=== PATIENT | female | born 1945 | race Caucasian/White ===

== ENCOUNTER 2018-05-24 08:37 | Emergency (ER) | payer OTHER, MEDICARE ==
[2018-05-24] MEDS ORDERED: ACETAMINOPHEN 325 MG TABLET ONE (09:41)
[2018-05-24 09:58] LABS: Absolute Lymphocytes (CBC) 1.4 K/uL (0.7-4.9); Absolute Monocytes 1.3 K/uL (0.1-1.3); Absolute Neutrophil 10.8 K/uL (1.8-8.0); Basophils % 0.5 % (0-1.3); Eosinophils % 1.1 % (0-4.4); Hematocrit 39.6 % (36.0-45.0); Lymphocytes % 10.5 % (15.3-44.8); MPV 9.8 fL (7.6-11.3); Monocytes % 9.4 % (3.3-12.3); RBC Red Blood Cell Count 4.64 M/uL (3.86-4.86)
[2018-05-24 10:59] LABS: Urine Blood 1+ (NEG); Urine Glucose NEGATIVE (NEG); Urine Protein NEGATIVE (NEG); Urine Specific Gravity 1.005 (1.005-1.030)
--- NOTE | 2018-05-24 11:45 | RAD REPORT ---
EXAM DESCRIPTION: CT - Head Brain Wo Cont - 05/24/2018 11:29 am CLINICAL HISTORY: Headache, tinnitus COMPARISON: None. TECHNIQUE: Axial 5 mm thick images of the head were obtained without IV contrast. All CT scans are performed using dose optimization technique as appropriate and may include automated exposure control or mA/KV adjustment according to patient size. FINDINGS: No intracranial hemorrhage, mass, edema or shift of mid-line structures. No acute infarcti on changes seen. No abnormal extra-axial fluid collections. Ventricles are normal. Mastoid air cells and visualized portions of the paranasal sinuses are clear. No acute bony findings. IMPRESSION: Negative non-contrast CT head examination.
[2018-05-24] MEDS ORDERED: KETOROLAC 30 MG/ML INJ ONE (11:53)
[2018-05-24] MEDS ORDERED: CIPROFLOXACIN HCL 500 MG TAB ONE (12:09)
--- NOTE | 2018-05-24 12:15 | ER ---
Nurse's Notes [facility] Name: Sravanthi Mendoza Age: 73 yrs Sex: Female : 1945 Arrival Date: 05/24/2018 Time: 08:41 Bed 17 Private MD: Irwin Tyson V Diagnosis: UTI, Headache Presentation: 05/24 08:51 Presenting complaint: Patient states: Chills and intermittent suprapubic pain that ss began last night. Headache and ear ringing that began this morning. Transition of care: patient was not received from another setting of care. Onset of symptoms was May 23, 2018. Risk Assessment: Do you want to hurt yourself or someone else? Patient reports no desire to harm self or others. Initial Sepsis Screen: Does the patient meet any 2 criteria? HR > 90 bpm. Does the patient have a suspected source of infection? No. Patient's initial sepsis screen is negative. Care prior to arrival: None. 08:51 Method Of Arrival: Ambulatory ss 08:51 Acuity: AIDEE 3 ss Triage Assessment: 11:24 General: Appears in no apparent distress. General: Behavior is calm, cooperative. Pain: ls4 Pain began 2-3 days ago. Is continuous, Also complains of no other associated symptoms. Neuro: No deficits noted. Cardiovascular: No deficits noted. Respiratory: No deficits noted. GI: No deficits noted. : No deficits noted. Derm: No deficits noted. Musculoskeletal: No deficits noted. 11:52 Headache History: Denies prior headaches. Pain: Pain currently is 5 out of 10 on a pain ls4 scale. Historical: - Allergies: 08:54 PENICILLINS; ss 08:54 Sulfa (Sulfonamide Antibiotics); ss - PMHx: 08:54 Hypertension; GERD; High Cholesterol; Vit D deficiency; ss - Immunization history:: Adult Immunizations unknown. - Social history:: Smoking status: Patient/guardian denies using tobacco. - Ebola Screening: : Patient denies exposure to infectious person Patient denies travel to an Ebola-affected area in the 21 days before illness onset. Screenin:15 Abuse screen: Denies threats or abuse. Denies injuries from another. Nutritional hb screening: No deficits noted. Tuberculosis screening: No symptoms or risk factors identified. Fall Risk None identified. Assessment: 09:15 General: Appears in no apparent distress. Behavior is calm, cooperative. Pain: Pain hb currently is 6 out of 10 on a pain scale. Neuro: Level of Consciousness is awake, alert, obeys commands, Oriented to person, place, time, situation, Reports headache. Cardiovascular: Heart tones S1 S2 present Capillary refill < 3 seconds Patient's skin is warm and dry. Respiratory: Airway is patent Respiratory effort is even, unlabored, Respiratory pattern is regular, symmetrical, Breath sounds are clear bilaterally. GI: No signs and/or symptoms were reported involving the gastrointestinal system. : Reports pain in suprapubic area. EENT: No signs and/or symptoms were reported regarding the EENT system. Derm: No signs and/or symptoms reported regarding the dermatologic system. Skin is intact, is healthy with good turgor. Musculoskeletal: No signs and/or symptoms reported regarding the musculoskeletal system. 11:22 Reassessment: Patient and/or family updated on plan of care and expected duration. Pain ls4 level reassessed. Patient is alert, oriented x 3, equal unlabored respirations, skin warm/dry/pink. Vital Signs: 08:54 BP 151 / 69; Pulse 98; Resp 16; Temp 98.6(TE); Pulse Ox 97% on R/A; Weight 87.09 kg; ss Height 5 ft. 7 in. (170.18 cm); Pain 6/10; 11:22 BP 136 / 80; Pulse 88; Resp 16; Temp 98.4; Pulse Ox 99% on R/A; Pain 5/10; ls4 12:19 BP 138 / 67; Pulse 80; Resp 16; Temp 98.4(O); Pulse Ox 99% on R/A; Pain 3/10; ls4 08:54 Body Mass Index 30.07 (87.09 kg, 170.18 cm) ED Course: 08:41 Patient arrived in ED. rg4 08:42 Irwin Tyson MD is Private Physician. rg4 08:53 Triage completed. ss 08:54 Arm band placed on right wrist. ss 08:56 Martinez Pendleton MD is Attending Physician. kdr 09:15 Patient has correct armband on for positive identification. Bed in low position. Call hb light in reach. Side rails up X 1. 09:29 Vika Conde, ANGELICA is Primary Nurse. hb 09:35 Initial lab(s) drawn, by me, sent to lab. First set of blood cultures drawn. Inserted em1 saline lock: 20 gauge in right antecubital area, using aseptic technique. Blood collected. 09:55 Second set of blood cultures drawn by me. em1 11:24 No provider procedures requiring assistance completed. ls4 11:30 CT Head Brain wo Cont In Process Unspecified. EDMS 12:14 Irwin Tyson MD is Referral Physician. kdr 12:20 IV discontinued, intact, bleeding controlled, No redness/swelling at site. Pressure ls4 dressing applied. Administered Medications: 09:46 Drug: Tylenol 650 mg Route: PO; hb 10:37 Follow up: Response: No adverse reaction ls4 11:50 Drug: TORadol 15 mg Route: IVP; Site: right antecubital; ls4 11:57 Follow up: Response: No adverse reaction; Pain is decreased ls4 12:02 Drug: Cipro 500 mg Route: PO; ls4 12:19 Follow up: Response: No adverse reaction ls4 Outcome: 12:15 Discharge ordered by . kdr 12:52 Discharged to home ambulatory, with family. ls4 12:52 Condition: good 12:52 Discharge instructions given to patient, family, Instructed on discharge instructions, follow up and referral plans. medication usage, safety practices, Demonstrated understanding of instructions, follow-up care, medications, Prescriptions given X 1. 12:53 Patient left the ED. ls4 Addendum: 05/27/2018 07:44 Addendum: Culture Results: Positive urine culture. No further action required. Bacteria a a5 sensitive to prescribed antibiotic. Signatures: Dispatcher [employer] EDCA Martinez Pendleton MD MD kdr Martinez, Eric em1 Betty Estevez, RN RN aa5 Marce Richmond RN RN ss Baxter, Heather, RN RN hb Garcia, Rubi 4 Hafsa Ferrara RN RN ls4
--- NOTE | 2018-05-24 12:15 | EDPHYS ---
Physician Documentation [facility] Name: Sravanthi Mendoza Age: 73 yrs Sex: Female : 1945 Arrival Date: 05/24/2018 Time: 08:41 Bed 17 Private MD: Irwin Tyson V ED Physician Martinez Pendleton HPI: 05/24 09:45 This 73 yrs old Female presents to ER via Ambulatory with complaints of kdr Headache and low abdominal pain. 10:10 The patient had low abdominal pain and discomfort since yesterday. Last night when when kdr she went to bed, she began to have a RUIZ that was global but worse posteriorly. She has no s/s of meningitis. It is not the worse RUIZ of her life. Onset: The symptoms/episode began/occurred yesterday. Severity of symptoms: At their worst the symptoms were mild in the emergency department the symptoms are unchanged. The patient has not experienced similar symptoms in the past. The patient has not recently seen a physician. The patient's is deteriorating w/ CA and she has been under a lot of stress. She did not sleep well last night and she awoke with chills but no documented fever.. Historical: - Allergies: 08:54 PENICILLINS; ss 08:54 Sulfa (Sulfonamide Antibiotics); ss - PMHx: 08:54 Hypertension; GERD; High Cholesterol; Vit D deficiency; ss - Immunization history:: Adult Immunizations unknown. - Social history:: Smoking status: Patient/guardian denies using tobacco. - Ebola Screening: : Patient denies exposure to infectious person Patient denies travel to an Ebola-affected area in the 21 days before illness onset. ROS: 10:10 Constitutional: Negative for and weight loss - she did have chills Eyes: Negative for kdr injury, pain, redness, and discharge, Neck: Negative for injury, pain, and swelling, Cardiovascular: Negative for chest pain, palpitations, and edema, Respiratory: Negative for shortness of breath, cough, wheezing, and pleuritic chest pain, Back: Negative for injury and pain, : Negative for injury, bleeding, discharge, and swelling, MS/Extremity: Negative for injury and deformity, Skin: Negative for injury, rash, and discoloration, Psych: Negative for depression, anxiety, suicide ideation, homicidal ideation, and hallucinations, Allergy/Immunology: Negative for hives, rash, and allergies, Endocrine: Negative for neck swelling, polydipsia, polyuria, polyphagia, and marked weight changes, Hematologic/Lymphatic: Negative for swollen nodes, abnormal bleeding, and unusual bruising. 10:10 Abdomen/GI: Positive for abdominal pain, Negative for nausea, vomiting, and diarrhea, constipation, abdominal cramps, abdominal distension, dysphagia, black/tarry stool, rectal pain, rectal bleeding, bowel incontinence. 10:10 Neuro: Positive for headache, Negative for dizziness, gait disturbance, hearing loss, loss of consciousness, numbness, seizure activity, speech changes, syncope, near syncope, tingling, tinnitus, tremor, visual changes, weakness. Exam: 10:10 Constitutional: This is a well developed, well nourished patient who is awake, alert, kdr and in no acute distress. Head/Face: Normocephalic, atraumatic. Eyes: Pupils equal round and reactive to light, extra-ocular motions intact. Lids and lashes normal. Conjunctiva and sclera are non-icteric and not injected. Cornea within normal limits. Periorbital areas with no swelling, redness, or edema. Neck: Trachea midline, no thyromegaly or masses palpated, and no cervical lymphadenopathy. Supple, full range of motion without nuchal rigidity, or vertebral point tenderness. No Meningismus. Chest/axilla: Normal chest wall appearance and motion. Nontender with no deformity. No lesions are appreciated. Cardiovascular: Regular rate and rhythm with a normal S1 and S2. No gallops, murmurs, or rubs. Normal PMI, no JVD. No pulse deficits. Respiratory: Lungs have equal breath sounds bilaterally, clear to auscultation and percussion. No rales, rhonchi or wheezes noted. No increased work of breathing, no retractions or nasal flaring. Abdomen/GI: Soft, mild tenderness RLQ > LLQ, with normal bowel sounds. No distension or tympany. No guarding or rebound. Back: No spinal tenderness. No costovertebral tenderness. Full range of motion. Skin: Warm, dry with normal turgor. Normal color with no rashes, no lesions, and no evidence of cellulitis. Vital Signs: 08:54 BP 151 / 69; Pulse 98; Resp 16; Temp 98.6(TE); Pulse Ox 97% on R/A; Weight 87.09 kg; ss Height 5 ft. 7 in. (170.18 cm); Pain 6/10; 11:22 BP 136 / 80; Pulse 88; Resp 16; Temp 98.4; Pulse Ox 99% on R/A; Pain 5/10; ls4 12:19 BP 138 / 67; Pulse 80; Resp 16; Temp 98.4(O); Pulse Ox 99% on R/A; Pain 3/10; ls4 08:54 Body Mass Index 30.07 (87.09 kg, 170.18 cm) ss MDM: 10:10 Data reviewed: vital signs, nurses notes, lab test result(s), EKG, radiologic studies. kdr 12:15 Patient medically screened. kdr 05/24 09:19 Order name: CBC with Diff kdr 05/24 09:19 Order name: Chem 7 kdr 05/24 09:19 Order name: Urine Culture [facility] 05/24 09:19 Order name: Blood Culture Adult (2) kdr 05/24 09:20 Order name: CBC with Automated Diff; Complete Time: 10:07 EDMS 05/24 09:20 Order name: Basic Metabolic Panel; Complete Time: 10:59 EDAK 05/24 09:19 Order name: Urine Dipstick-Ancillary (obtain specimen); Complete Time: 09:30 kdr 05/24 09:54 Order name: Urine Dipstick--Ancillary (enter results); Complete Time: 11:28 eb 05/24 10:59 Order name: CT Head Brain wo Cont; Complete Time: 12:10 kdr Administered Medications: 09:46 Drug: Tylenol 650 mg Route: PO; hb 10:37 Follow up: Response: No adverse reaction ls4 11:50 Drug: TORadol 15 mg Route: IVP; Site: right antecubital; ls4 11:57 Follow up: Response: No adverse reaction; Pain is decreased ls4 12:02 Drug: Cipro 500 mg Route: PO; ls4 12:19 Follow up: Response: No adverse reaction ls4 Disposition: 05/24/18 12:15 Discharged to Home. Impression: UTI, Headache. - Condition is Fair. - Discharge Instructions: Urinary Tract Infection, Adult, [id number], General Headache Without Cause, Ikae-fk-Fizz. - Prescriptions for Cipro 500 mg Oral Tablet - take 1 tablet by ORAL route every 12 hours for 7 days; 14 tablet. - Medication Reconciliation Form, Thank You Letter, Antibiotic Education form. - Follow up: Irwin Tyson MD; When: 2 - 3 days; Reason: If symptoms return, Further diagnostic work-up, Recheck today's complaints, Continuance of care, Re-evaluation by your physician. - Problem is new. - Symptoms have improved. Signatures: Dispatcher [employer] EDAK Martinez Pendleton MD MD [facility] Marce Richmond RN RN Vika Conde RN RN Hafsa Ferrara RN RN ls4 Corrections: (The following items were deleted from the chart) 12:53 12:15 05/24/2018 12:15 Discharged to Home. Impression: UTI, Headache. Condition is ls4 Fair. Forms are Medication Reconciliation Form, Thank You Letter, Antibiotic Education, Prescription Opioid Use. Follow up: Irwin Tyson; When: 2 - 3 days; Reason: If symptoms return, Further diagnostic work-up, Recheck today's complaints, Continuance of care, Re-evaluation by your physician. Problem is new. Symptoms have improved. kdr
== END 2018-05-24 12:53 | disposition home or self-care (01) ==
LOC: ER 08:37
DX: N39.0 Urinary tract infection, site not specified (principal); R51 Headache; Z88.0 Allergy status to penicillin; Z88.2 Allergy status to sulfonamides; I10 Essential (primary) hypertension; E78.00 Pure hypercholesterolemia, unspecified; E55.9 Vitamin D deficiency, unspecified
CPT/HCPCS: 36415; 70450; 80048; 81003; 85025; 87040; 87077; 87086; 87088; 87186

== ENCOUNTER 2020-01-07 11:00 | Emergency (ER) | payer OTHER, MEDICARE ==
--- OUTSIDE RECORDS SUMMARY | 2020-01-07 11:02 | XMS REPORT | Continuity of Care Document ---
:1945 Author Organization [facility] t Address [address] [place] [address] Care Team Providers Name Role Phone Nasra Posadas Attending Clinician Doctor Unassigned, Name Attending Clinician Unavailable Problems This patient has no known problems. Allergies, Adverse Reactions, Alerts This patient has no known allergies or adverse reactions. Medications This patient has no known medications. Procedures This patient has no known procedures. Encounters Start End Encounter Admission Attending Care Care Encounter Source Date/Time Date/Time Type Type Clinicians Facility Department ID 2020-01-03 2020-01-03 Emergency Natasha Chawla [facility] [id number] 13:32:00 17:51:00 Nasra Plummer [id number] [place] [id number] [place] [id number] 2020-01-03 2020-01-03 Orders Doctor RACHEL [id number] 00:00:00 00:00:00 Only Unassigned, JUAN MANUEL [id number] [place] [facility] [id number] Results This patient has no known results.
--- OUTSIDE RECORDS SUMMARY | 2020-01-07 11:02 | XMS REPORT | Summary of Care ---
:1945 Author Organization [facility] - Health Address [address] [place] [address] Care Team Providers Name Role Phone Irwin Tyson Primary Care Provider Encounter Details Date Type Department Care Team Description 01/03/2020 Orders Only [facility] Doctor Unassigned, No [address] [facility] [place] [address] [address] [place] [address] Allergies Active Allergy Reactions Severity Noted Date Comments Penicillin Swelling 05/11/2019 Sulfa (Sulfonamide Antibiotics) Swelling 0 documented as of this encounter (statuses as of 01/03/2020) Medications No known medicationsdocumented as of this encounter (statuses as of 01/03/2020) Active Problems No known active problemsdocumented as of this encounter (statuses as of 01/03/2020) Social History Tobacco Use Types Packs/Day Years Used Date Never Assessed Sex Assigned at Date Recorded Not on file documented as of this encounter Last Filed Vital Signs Not on filedocumented in this encounter Plan of Treatment Health Maintenance Due Date Last Done Comments Depression Screening 1957 DTaP,Tdap,and Td Vaccines (1 - Tdap) 01/11/1963 Breast Cancer Screening (MAMMOGRAM) 1984 COLON CANCER SCREENING ANNUAL FIT/FOBT 01/11/1994 COLON CANCER SCREENING FIT DNA EVERY 3 YEARS 01/11/1994 COLON CANCER SCREENING SIGMOIDOSCOPY EVERY 5 YEARS 01/11/1994 COLONOSCOPY 01/11/1994 Colorectal Cancer Screening 01/11/1994 Zoster Recombinant Vaccine (SHINGRIX) (1 of 2) 01/11/1994 Medicare Wellness Visit 01/11/2009 Osteoporosis Screening 01/11/2009 PNEUMOCOCCAL VACCINES 65+ (1 of 1 - PPSV23) 01/11/2009 INFLUENZA VACCINE (#1) 2020 documented as of this encounter Procedures Procedure Name Priority Date/Time Associated Diagnosis Comme nts CONSENT/REFUSAL FOR Routine 01/03/2020 1:20 PM CDT DIAGNOSIS AND TREATMENT documented in this encounter Results Not on filedocumented in this encounter Insurance Payer Benefit Plan / Subscriber ID Effective Phone Address T e Group Dates MEDICARE MEDICARE PART [id number] 2009-Pre [phone] [address] [employer] sent [phone] FRANCIA RAMIREZ [id number] [facility] [id number] 2019-Pre [address] [facility] [place][note 2] sent [id number] Supplement MEDICARE [place] SUPPLEMENT FRANCIA BACA [id number] documented as of this encounter
--- OUTSIDE RECORDS SUMMARY | 2020-01-07 11:03 | XMS REPORT | Summary of Care ---
:1945 Author Organization [facility] - [facility] Address [address] [place] [address] Care Team Providers Name Role Phone Jah Irwin Primary Care Provider Reason for Referral Radiology Services (LOYDA) Status Reason Specialty Diagnoses / Referred By Referred To Procedures Contact Contact New Request Diagnostic Diagnoses Fatigue, unspecified type [place], K Radiology Procedures XR CHEST 1 VW COVID XR CHEST 1 RUDI Hammonds, PAC [address] [place] [phone] Reason for Visit Reason Comments Fever Cough Auth/Cert Status Reason Specialty Diagnoses / Referred By Referred To Procedures Contact Contact Emergency Medicine Diagnoses FEVER [facility] [address] [place] [address] Fax: Encounter Details Date Type Department Care Team Description 01/03/2020 Emergency ADC-Emergency [place], K Nasra, Viral illn ess (Primary Dx); Department PAC Fatigue, unspecified type [address] [place] [address] Dr [address] [place] [address] [place] [address] Allergies Active Allergy Reactions Severity Noted Date Comments Penicillin Swelling 05/11/2019 Sulfa (Sulfonamide Antibiotics) Swelling 0 documented as of this encounter (statuses as of 01/03/2020) Medications Medication Sig Dispensed Refills Start Date End Date Status naproxen (NAPROSYN) 500 Take 1 tablet by 30 tablet 0 0 Active mg tabletIndications: mouth 2 (two) Fatigue, unspecified times daily with type, Viral illness meals. documented as of this encounter (statuses as of 01/03/2020) Active Problems No known active problemsdocumented as of this encounter (statuses as of 01/03/2020) Social History Tobacco Use Types Packs/Day Years Used Date Never Assessed Sex Assigned at Date Recorded Not on file COVID-19 Exposure Response Date Recorded In the last month, have you been in contact with No / Unsure 01/03/2020 1:34 PM CDT someone who was confirmed or suspected to have Coronavirus / COVID-19? documented as of this encounter Last Filed Vital Signs Vital Sign Reading Time Taken Comments Blood Pressure 134/58 01/03/2020 5:00 PM CDT Pulse 59 01/03/2020 5:00 PM CDT Temperature 38 C (100.4 F) 01/03/2020 1:38 PM CDT Respiratory Rate 16 01/03/2020 5:00 PM CDT Oxygen Saturation 97% 01/03/2020 5:00 PM CDT Inhaled Oxygen Concentration - - Weight 88.5 kg (195 lb) 01/03/2020 1:38 PM CDT Height - - Body Mass Index - - documented in this encounter Discharge Instructions AttachmentsThe following attachments cannot be sent through Care Everywhere. Viral Syndrome (Adult) (Chinese)documented in this encounter ED Notes Ashely Main RN - 01/03/2020 1:35 PM CDTPatient reports productive cough, fever, chills, body aches, diarrhea x1 week. Was tested for COVID19 at Urgent Care 2 days ago, reports that she still hasn't gotten results yet. Also reports that she was being treated for UTI 2 days ago, taking antibiotics, cannot recall name of medication. documented in this encounter Miscellaneous Notes ED Nurse Note - Ashely Main, RN - 01/03/2020 5:42 PM CDTPt discharged with diagnosis of fatigue and viral illness. Printed and verbal instructions reviewed with and given to patient. Prescriptions given x1. Pt verbalized understanding of teaching and medications. Denies questions or concerns at this time. Pt ambulatory at discharge, appears in no apparent distress. D Nurse Note - Ashely Main RN - 01/03/2020 1:40 PM CDTPt also reports loss of taste. D Nurse Note - Ashely Main RN - 01/03/2020 1:36 PM CDTWalking test performed at this time. Pt O2 sat remained above 95% on RA. documented in this encounter Plan of Treatment Health [...] Name Priority Date/Time Associated Diagnosis Comme nts EKG-12 LEAD Routine 01/03/2020 4:06 PM CDT XR CHEST 1 VW COVID LOYDA 01/03/2020 3:05 Fatigue, unspecif ied Results for this PM CDT type procedure are i n the results section. CBC WITH DIFF STAT 01/03/2020 3:04 Fatigue, unspecified Re sults for this PM CDT type procedure are i n the results section. COMP. METABOLIC STAT 01/03/2020 3:04 Fatigue, unspecified Results for this PANEL (98406) PM CDT type procedure are in the results section. TROPONIN I STAT 01/03/2020 3:04 Fatigue, unspecified Res ults for this PM CDT type procedure are i n the results section. MAGNESIUM STAT 01/03/2020 3:04 Fatigue, unspecified Res ults for this PM CDT type procedure are i n the results section. LIPASE STAT 01/03/2020 3:04 Fatigue, unspecified Res ults for this PM CDT type procedure are i n the results section. URINALYSIS STAT 01/03/2020 3:00 Fatigue, unspecified Res ults for this PM CDT type procedure are i n the results section. NOTICE OF PRIVACY Routine 01/03/2020 1:21 PRACTICES PM CDT documented in this encounter Results XR CHEST 1 VW COVID (01/03/2020 3:05 PM CDT) Specimen Impressions Performed At PACS/VR/DOSE 1. No acute intrathoracic abnormality, specifically no detectable radiographic findings to suggest COVID-1 9 pneumonia. 2. Left perihilar region of the lucency measuring ap proximately 2.8 cm is probably artifactual due to superimposit ion of lung tissue, vessels and soft tissue structures (less likely cavi tary lesion). This could be confirmed with CT chest. Alternatively, consider perfo rming PA and lateral view to better visualize. Disclaimer: Generally, the findings on c hest imaging in COVID-19 are not specific, and overlap with other infecti ons, including influenza, H1N1, SARS and MERS. According to the Centers for Disease Control (CDC) and recent statement of the [place] [employer], viral testing remai ns the only specific method of diagnosis. Confirmation with the viral test is required, even if radiologic findings are suggestive of CO VID-[address]. Preliminary Report Dictated by Resident: Cordell Martinez I, Jeffrey Welch MD., have review ed this study and agree with the above report. Narrative Performed At PROCEDURE: CHEST, SINGLE VIEW . PACS/VR/DOSE CLINICAL INDICATION: fatigue COMPARISON: Chest x-ray dated 05/11/2019. Technique: Single AP view of the chest. FINDINGS: A 2.9 cm left parahilar lucency is proba cristy artifactual due to superimposition of soft tissue structures and vessels. Biapical thickening and scarring especially on the left, similar prior. Th e lungs are otherwise well-expanded and clear. No pleural effusion or pneumothorax is s een. The cardiomediastinal silhouette is normal. No acute bony abnormality. Procedure Note [facility], Radiant Results Inft User - 2019 3:40 PM CDT PROCEDURE: CHEST, SINGLE VIEW . CLINICAL INDICATION: fatigue COMPARISON: Chest x-ray dated 05/11/2019. Technique: Single AP view of the chest. FINDINGS: A 2.9 cm left parahilar lucency is proba cristy artifactual due to superimposition of soft tissue structure s and vessels. Biapical thickening and scarring especially on the left, sim ilar prior. The lungs are otherwise well-expanded and clear. No pleural effusion or pneumothorax is s een. The cardiomediastinal silhouette is normal. No acute bony abnormality. IMPRESSION 1. No acute intrathoracic abnormality, specifically no detectable radiographic findings to suggest COVID-1 9 pneumonia. 2. Left perihilar region of the lucency measuring approximately 2.8 cm is probably artifactual due to superimposit ion of lung tissue, vessels and soft tissue structures (less likely cavi tary lesion). This could be confirmed with CT chest. Alternatively, consider performing PA and lateral view to better visualize. Disclaimer: Generally, the findings on c hest imaging in COVID-19 are not specific, and overlap with other infecti ons, including influenza, H1N1, SARS and MERS. According to the Centers for Disease Con trol (CDC) and recent statement of the [place] [employer], viral testing remains the only specific method of diagnosis. Confirmation with t he viral test is required, even if radiologic findings are suggestive of CO VID-[address] Preliminary Report Dictated by Resident: Cordell Martinez I, Jeffrey Welch MD., have reviewe d this study and agree with the above report. Performing Organization Address City/State/Zipcode Phone Number PACS/VR/DOSE LIPASE (01/03/2020 3:04 PM CDT) Pathologist Sig nature LIPASE 70 0 - 220 U/L [facility] Specimen Blood - VENOUS Performing Organization Address City/[facility]/Zipcode Phone Number [facility] CLIA: [id number] [place] [address] MAGNESIUM (01/03/2020 3:04 PM CDT) Pathologist Sig nature MAGNESIUM 1.5 (L) 1.7 - 2.4 mg/dL [facility] Specimen Blood - VENOUS Performing Organization Address City/[facility]/Zipcode Phone Number [facility] CLIA: [id number] [place] [address] [place] [address] TROPONIN I (01/03/2020 3:04 PM CDT) Pathologist Sig nature TROPONIN I <0.012 <=0.034 ng/mL [facility] Specimen Blood - VENOUS Narrative Performed At Equal or Less than 0.034 ng/ml---Normal [facility] Note: Cardiac troponin begins to rise 3-4 hours after the onset of ischemia. Repeat in 4-6 hours if the sample was drawn within 3-4 hours of the onset of the symptom and found normal. Between 0.035 and 0.120 ng/mL--- Borderline. Questionable myocardial injury or necros is Note: Serial measurement may be necessary to confirm or exclude the diagnosis of myocardial injury or necrosis; Clinical correlation (symptoms, EKGs, imaging studies, and others) required; Repeat in 4-6 hours if clinically indicated. Equal or Higher than 0.121 ng/mL---Abnormal. Myocardial Injury or Necrosis Likely Biotin has been reported to cause a negative bias, interpret results relative to patient's use of biotin. Performing Organization Address [facility] Phone Number [facility] CLIA: [id number] [place] [address] [place] [address] COMP. METABOLIC PANEL (43413) (01/03/2020 3:04 PM CDT) Pathologist Sig nature NA 137 135 - 145 mmol/L [facility] K 3.7 3.5 - 5.0 mmol/L [facility] CL 105 98 - 108 mmol/L [facility] CO2 TOTAL 25 23 - 31 mmol/L [facility] AGAP 7 2 - 16 [facility] BUN 17 7 - 23 mg/dL [facility] GLUCOSE 103 70 - 110 mg/dL [facility] CREATININE 1.03 0.50 - 1.04 [facility] mg/dL HOSPITAL LABORATORY TOTAL BILI 0.6 0.1 - 1.1 mg/dL [facility] CALCIUM 8.8 8.6 - 10.6 mg/dL [facility] T PROTEIN 6.6 6.3 - 8.2 g/dL [facility] ALBUMIN 3.8 3.5 - 5.0 g/dL [facility] ALK PHOS 48 34 - 122 U/L [facility] ALTv 18 5 - 35 U/L [facility] AST(SGOT) 28 13 - 40 U/L [facility] eGFR Calculation 52.2 mL/min/1.73m2 [facility] (Non-) [facility] Y eGFR Calculation 63.3 mL/min/1.73m2 [facility] () [facility] Specimen Blood - VENOUS Narrative Performed At [facility] Glomerular Filtration Rate (GFR) [facility] and Staging of Kidney Disease* + + +- + | GFR (mL/min/1.73 m2) | With Kidney Damage | Without Kidney Damage + + +- + | >90 | Stage one | Normal + + +- + | 60-89 | Stage two | Decreased GFR + + +- + | 30-59 | Stage three | Stage three + + +- + | 15-29 | Stage four | Stage four + + +- + | <15 (or dialysis) | Stage five | Stage five + + +- + *Each stage assumes the associated GFR level has been in effect for at least three months. Stages 1 to 5, with or without kidney disease, indicate chronic kidney disease. Notes: Determination of stages one and two (with eGFR >59mL/min/1.73 m2) requires estimation of kidney damage for at least three months as defined by structural or functional abnormalities of the kidney, manifested by either: Pathological abnormalities or Markers of kidney damage (including abnormalities in the composition of the blood or urine or abnormalities in imaging tests). Performing Organization Address City/State/Zipcode Phone Number [facility] CLIA: [id number] [place], [place] [id number] LAB[address]AT[address] CBC WITH DIFF (01/03/2020 3:04 PM CDT) WBC 5.34 4.30 - 11.10 [facility] 10*3/L [facility] RBC 4.42 3.93 - 5.25 [facility] 10*6/L [facility] HGB 12.3 11.6 - 15.0 [facility] g/dL [facility] HCT 39.3 35.7 - 45.2 % [facility] MCV 88.9 80.6 - 95.5 [facility]ORY MCH 27.8 25.9 - 32.8 [facility] pg [facility] MCHC 31.3 (L) 31.6 - 35.1 [facility] g/dL [facility] RDW-SD 47.2 39.0 - 49.9 [facility]ORY RDW-CV 14.6 12.0 - 15.5 % [facility] PLT 102 (L) 166 - 358 [facility] 10*3/L [facility] MPV 11.6 9.5 - 12.9 fL [facility] IPF % 4.2Comment: Platelet 1.3 - 7.7 % [facility] count measured by HOSPITAL fluorescence method. LABORATORY NRBC/100 WBC 0.0 0.0 - 10.0 [facility] /100 WBCs [facility] NRBC x10^3 <0.01 10*3/L [facility] GRAN MAT (NEUT) % 64.8 % [facility] IMM GRAN % 0.60 % [facility] LYMPH % 20.4 % [facility] MONO % 12.5 % [facility] EOS % 1.1 % [facility] BASO % 0.6 % [facility] GRAN MAT 3.46 1.88 - 7.09 [facility] x10^3(ANC) 10*3/uL [facility] IMM GRAN x10^3 0.03 0.00 - 0.06 [facility] 10*3/uL [facility] LYMPH x10^3 1.09 (L) 1.32 - 3.29 [facility] 10*3/uL [facility] MONO x10^3 0.67 0.33 - 0.92 [facility] 10*3/uL [facility] EOS x10^3 0.06 0.03 - 0.39 [facility] 10*3/uL [facility] BASO x10^3 0.03 0.01 - 0.07 [facility] 10*3/uL [facility] Specimen Blood - VENOUS Performing Organization Address City/State/Zipcode Phone Number [facility] CLIA: [id number] [place] [address] URINALYSIS (01/03/2020 3:00 PM CDT) Pathologist Sig nature APPEARANCE Clear Clear [facility] COLOR Yellow Yellow [facility] PH 5.0 4.8 - 8.0 [facility] SP GRAVITY 1.014 1.003 - 1.030 [facility] GLU U QUAL Normal Normal [facility] BLOOD 1+ (A) Negative [facility] KETONES Negative Negative [facility] PROTEIN Negative Negative [facility] UROBILIN Normal Normal [facility] BILIRUBIN Negative Negative [facility] NITRITE Negative Negative [facility] LEUK SAWYER Negative Negative [facility] RBC/HPF 3 0 - 3 HPF [facility] WBC/HPF 2 0 - 5 HPF [facility] BACTERIA Few (A) Negative [facility] MUCOUS Slight (A) Negative LPF [facility] SQ EPITH 2 HPF [facility] HYAL CAST 4 (H) <=2 LPF [facility] Specimen Urine - URINE, CLEAN CATCH Performing Organization Address City/State/Zipcode Phone Number [facility] CLIA: [id number] [place] [address] documented in this encounter Visit Diagnoses Diagnosis Viral illness - Primary Unspecified viral infection, in conditio ns classified elsewhere and of unspecified site Fatigue, unspecified type documented in this encounter Administered Medications Medication Order MAR Action Action Date Dose Rate Site naproxen (NAPROSYN) tablet 500 mg Given 01/03/2020 5:34 PM CDT 500 mg 500 mg, Oral, ONCE, 1 dose, Mon01/03/20 at 1830, Routine documented in this encounter Insurance Payer Benefit Plan / Subscriber ID Effective Phone Address T ype Group Dates MEDICARE MEDICARE PART [id number] 2009-Pre [phone] [place] sent [phone] FRANCIA RAMIREZ [id number] [facility] [id number] 2019-Pre [address] [facility] sent [phone] Supplement MEDICARE [place] SUPPLEMENT FRANCIA BACA [id number] documented as of this encounter"
[2020-01-07 12:26] LABS: Absolute Lymphocytes (CBC) 0.4 K/uL (0.7-4.9); Basophils % 0.1 % (0-1.3); Hematocrit 36.6 % (36.0-45.0); Lymphocytes % 5.2 % (15.3-44.8); Protime INR 0.91; RBC Red Blood Cell Count 4.29 M/uL (3.86-4.86)
[2020-01-07 12:49] LABS: ALT/SGPT 22 U/L (12-78); AST/SGOT 35 U/L (15-37); Albumin 2.8 g/dL (3.4-5.0); Alkaline Phosphatase 53 U/L (45-117); BUN Blood Urea Nitrogen 26 mg/dL (7-18); Bicarbonate 24 mmol/L (21-32); Bilirubin Direct 0.2 mg/dL (0-0.2); Bilirubin Total 0.4 mg/dL (0.2-1.0); Ferritin 685.7 ng/mL (8-388); Glucose Level 168 mg/dL (74-106); Magnesium 1.9 mg/dL (1.8-2.4); NT PRO-BNP 2679 pg/mL (<450); Potassium 3.7 mmol/L (3.5-5.1); Protein, Total 6.5 g/dL (6.4-8.2); Sodium Level 142 mmol/L (136-145); Troponin (Emerg Dept Use Only) < 0.02 ng/mL (0.0-0.045)
[2020-01-07] MEDS ORDERED: NA CHLORIDE 0.9% 1,000 ML ONE (12:50)
[2020-01-07 12:51] LABS: Blood Morphology Comment NOT SEEN (NOT SEEN); Platelet Estimate ADEQ
--- NOTE | 2020-01-07 13:15 | RAD REPORT ---
EXAM DESCRIPTION: CT - Chest For Pe Angio - 01/07/2020 1:06 pm CLINICAL HISTORY: Chest pain. sob, COVID-19 COMPARISON: CTANGIO CHEST FOR PE dated 01/28/2010 TECHNIQUE: CT angiogram of the pulmonary arteries was performed with MIP. All CT scans are performed using dose optimization technique as appropriate and may include automated exposure control or mA/KV adjustment according to patient size. FINDINGS: No evidence of pulmonary thromboembolism. No acute aortic finding demonstrated. Moderate bilateral ground-glass and interstitial lung opacities are present slightly greater in the l khoa bases suggesting interstitial pneumonia. Trace bilateral pleural effusion. No concerning bony finding. Small hiatal hernia. Cholecystectomy clips. IMPRESSION: No evidence of pulmonary thromboembolism. Bilateral moderate opacities in both lungs greatest in the lung bases would be compatible with COVID- 19 infection.
[2020-01-07 14:45] LABS: Urine Blood NEGATIVE (NEG); Urine Glucose NEGATIVE (NEG); Urine Protein NEGATIVE (NEG); Urine pH 5.5 (5.0-7.0)
--- NOTE | 2020-01-07 15:06 | RAD REPORT ---
EXAM DESCRIPTION: US - Extrem Venous W Compress Mg - 01/07/2020 2:55 pm CLINICAL HISTORY: leg swelling, sob, elevated d-dimer Bilateral leg edema and swelling. COMPARISON: No comparisons TECHNIQUE: Real-time sonographic interrogation of the left and right lower extremity deep venous sys tems was performed. FINDINGS: Normal compressibility, flow augmentation, phasic flow and spontaneous flow is identified in both the left and right lower extremity deep venous systems. IMPRESSION: No sonographic evidence of left or right lower extremity deep venous thrombosis.
[2020-01-07] MEDS ORDERED: METHYLPREDNISOLONE 125 MG INJ ONE (15:16)
--- NOTE | 2020-01-07 15:16 | EDPHYS ---
Physician Documentation [facility] Name: Sravanthi Mendoza Age: 74 yrs Sex: Female : 1945 Arrival Date: 01/07/2020 Time: 11:00 Bed 16 Private MD: ED Physician Ty Gimenez HPI: 01/06 11:37 This 74 yrs old Female presents to ER via Ambulatory with complaints of jmm Shortness Of Breath - covid+. 11:37 The patient has shortness of breath at rest, with light activity. Onset: The jmm symptoms/episode began/occurred gradually, 6 day(s) ago. Duration: The symptoms are intermittent. The patient's shortness of breath has no apparent modifying factors. Associated signs and symptoms: Pertinent negatives: chest pain. This is a 74 year old female with a history of htn, that presents to the ED with complaints of worsening shortness of breath. Patient diagnosed with COVID 19 this past Monday. Patient is currently on steroids and abx for UTI. Patient states her sob has worsened and advised to go to the ED for further evaluation. . Historical: - Allergies: 11:18 PENICILLINS; aa5 11:18 Sulfa (Sulfonamide Antibiotics); aa5 - PMHx: 11:18 GERD; High Cholesterol; Hypertension; vit d deficiency; aa5 - Immunization history:: Adult Immunizations unknown. - Social history:: Smoking status: Patient denies any tobacco usage or history of. ROS: 11:37 Constitutional: Positive for fatigue, fever. jmm 11:37 Respiratory: Positive for cough, shortness of breath. 11:37 All other systems are negative. Exam: 11:37 Constitutional: This is a well developed, well nourished patient who is awake, alert, jmm and in no acute distress. Head/Face: atraumatic. Eyes: EOMI, no conjunctival erythema appreciated ENT: Moist Mucus Membranes Neck: Trachea midline, Supple Chest/axilla: Normal chest wall appearance and motion. Cardiovascular: Regular rate and rhythm. No edema appreciated Respiratory: Normal respirations, no respiratory distress appreciated Abdomen/GI: Non distended, soft Back: Normal ROM Skin: General appearance color normal MS/ Extremity: Moves all extremities, no obvious deformities appreciated, no edema noted to the lower extremities Neuro: Awake and alert, normal gait Psych: Behavior is normal, Mood is normal, Patient is cooperative and pleasant Vital Signs: 11:18 BP 112 / 52; Pulse 75; Resp 20 S; Temp 98.2(O); Pulse Ox 98% on R/A; Weight 88.9 kg aa5 (R); Height 5 ft. 7 in. (170.18 cm) (R); Pain 0/10; 12:27 BP 117 / 48; Pulse 71; Resp 22; Pulse Ox 96% on R/A; Pain 0/10; jr10 13:34 BP 121 / 54; Pulse 75; Resp 16; Pulse Ox 97% on R/A; Pain 0/10; jr10 14:15 Pulse 97; Resp 26; Pulse Ox 91% on R/A; jr10 14:23 BP 116 / 52; Pulse 70; Resp 18; Pulse Ox 98% on R/A; jr10 15:48 BP 127 / 56; Pulse 77; Resp 20; Pulse Ox 97% on R/A; Pain 0/10; jr10 11:18 Body Mass Index 30.70 (88.90 kg, 170.18 cm) aa5 14:15 ambulatory pulse ox jr10 MDM: 11:25 Patient medically screened. [facility] 15:10 Data reviewed: vital signs, nurses notes. Counseling: I had a detailed discussion with [facility] the patient and/or guardian regarding: the historical points, exam findings, and any diagnostic results supporting the discharge/admit diagnosis, lab results. 15:12 Data reviewed: lab test result(s), EKG, radiologic studies. ED course: Pulse ox 91% on [facility] ambulation. Patient is dehydrated based on labs. Advised to increase fluid uptake. I discussed the patient with Dr. Dale whom advises to to d/c with oral steroids. Will follow up with the patient. . 01/06 11:36 Order name: Basic Metabolic Panel; Complete Time: 12:54 [facility] 01/06 11:36 Order name: CBC with Diff; Complete Time: 12:54 [facility] 01/06 11:36 Order name: LFT's; Complete Time: 12:54 [facility] 01/06 11:36 Order name: Magnesium; Complete Time: 12:54 [facility] 01/06 11:36 Order name: NT PRO-BNP; Complete Time: 12:54 [facility] 01/06 11:36 Order name: PT-INR; Complete Time: 12:35 [facility] 01/06 11:36 Order name: Troponin (emerg Dept Use Only); Complete Time: 12:54 [facility] 01/06 11:36 Order name: D-Dimer; Complete Time: 12:35 [facility] 01/06 11:36 Order name: CRP; Complete Time: 12:54 [facility] 01/06 11:36 Order name: Ferritin; Complete Time: 12:54 [facility] 01/06 11:36 Order name: Blood Culture Adult (2) [facility] 01/06 11:36 Order name: Lactate; Complete Time: 12:32 [facility] 01/06 11:36 Order name: Procalcitonin; Complete Time: 12:54 [facility] 01/06 12:51 Order name: Manual Differential; Complete Time: 12:54 [facility] 01/06 11:36 Order name: EKG; Complete Time: 11:37 [facility] 01/06 11:36 Order name: Cardiac monitoring; Complete Time: 11:39 [facility] 01/06 11:36 Order name: EKG - Nurse/Tech; Complete Time: 12:24 [facility] 01/06 11:36 Order name: IV Saline Lock; Complete Time: 12:24 [facility] 01/06 11:36 Order name: Labs collected and sent; Complete Time: 12:24 [facility] 01/06 11:36 Order name: O2 Per Protocol; Complete Time: 11:39 [facility] 01/06 11:36 Order name: O2 Sat Monitoring; Complete Time: 11:39 [facility] 01/06 11:36 Order name: CT Chest For PE Angio; Complete Time: 13:20 [facility] 01/06 11:37 Order name: Urine Dipstick-Ancillary (obtain specimen); Complete Time: 14:22 [facility] 01/06 13:34 Order name: Misc. Order: ambulate and check o2; Complete Time: 14:08 [facility] 01/06 14:05 Order name: US Extremity Venous W Compression Mg; Complete Time: 15:07 [facility] 01/06 14:35 Order name: Urine Dipstick--Ancillary (enter results); Complete Time: 14:48 bd Administered Medications: 12:42 Drug: NS 0.9% 1000 ml Route: IV; Rate: 1 bolus; Site: left antecubital; jr10 15:50 Follow up: Response: No adverse reaction; IV Status: Completed infusion jr10 15:10 Drug: SOLU-Medrol 125 mg Route: IVP; Site: left antecubital; jr10 15:50 Follow up: Response: No adverse reaction jr10 Disposition: 18:40 Co-signature as Attending Physician, Ty Giemnez MD. rn Disposition: 01/07/20 15:15 Discharged to Home. Impression: Viral pneumonia, unspecified. - Condition is Stable. - Discharge Instructions: COVID-19. - Medication Reconciliation Form, Thank You Letter, Antibiotic Education, Prescription Opioid Use form. - Follow up: Private Physician; When: 2 - 3 days; Reason: Recheck today's complaints, Continuance of care, Re-evaluation by your physician. - Notes: You can take NAC supplement 1000 mgtwice a day along with your current daily regimene. Please return to the ED if you develop increased shortness of breath, weakness, or any other concerning symptoms. Signatures: Dispatcher [employer] EDMS Michael Valentine PA PA jmm Nieto, Roman, MD MD rn Calderon, Audri, RN RN aa5 Valarie Razo RN RN jr10 Corrections: (The following items were deleted from the chart) 15:49 15:15 01/07/2020 15:15 Discharged to Home. Impression: Viral pneumonia, unspecified. jr10 Condition is Stable. Forms are Medication Reconciliation Form, Thank You Letter, Antibiotic Education, Prescription Opioid Use. Follow up: Private Physician; When: 2 - 3 days; Reason: Recheck today's complaints, Continuance of care, Re-evaluation by your physician. michelet
--- NOTE | 2020-01-07 15:16 | ER ---
Nurse's Notes [facility] Name: Sravanthi Mendoza Age: 74 yrs Sex: Female : 1945 Arrival Date: 01/07/2020 Time: 11:00 Bed 16 Private MD: Diagnosis: Viral pneumonia, unspecified Presentation: 01/06 11:18 Chief complaint: Patient states: "I was tested for COVID-19 on Monday at urgent care aa5 and I got the positive results Monday but I am just short of breath and my oxygen was 89 % at home". Pt also c/o productive cough with clear sputum and fatigue. 11:18 Acuity: AIDEE 3 aa5 11:18 Method Of Arrival: Ambulatory aa5 11:18 Coronavirus screen: Client presents with at least one sign or symptom that may indicate aa5 coronavirus-19. Standard/surgical mask placed on the client. Provider contacted for isolation considerations. Client reports previous positive COVID test result. Ebola Screen: Patient negative for fever greater than or equal to 101.5 degrees Fahrenheit, and additional compatible Ebola Virus Disease symptoms. Initial Sepsis Screen: Does the patient meet any 2 criteria? No. Patient's initial sepsis screen is negative. Does the patient have a suspected source of infection? No. Patient's initial sepsis screen is negative. Risk Assessment: Do you want to hurt yourself or someone else? Patient reports no desire to harm self or others. Onset of symptoms was January 2020. Triage Assessment: 13:00 Respiratory: Onset: The symptoms/episode began/occurred today, the patient has moderate jr10 shortness of breath. Historical: - Allergies: 11:18 PENICILLINS; aa5 11:18 Sulfa (Sulfonamide Antibiotics); aa5 - PMHx: 11:18 GERD; High Cholesterol; Hypertension; vit d deficiency; aa5 - Immunization history:: Adult Immunizations unknown. - Social history:: Smoking status: Patient denies any tobacco usage or history of. Screenin:25 Abuse screen: Denies threats or abuse. Denies injuries from another. Nutritional jr10 screening: No deficits noted. Tuberculosis screening: No symptoms or risk factors identified. Fall Risk IV access (20 points). Assessment: 11:25 General: Appears in no apparent distress. Behavior is calm, cooperative, appropriate jr10 for age. Pain: Denies pain. Neuro: No deficits noted. Cardiovascular: No deficits noted. Denies chest pain, Rhythm is sinus rhythm. Respiratory: Reports shortness of breath at rest on exertion cough that is non-productive, pain with respiration "I just feel like I can't get a good breath in" Airway is patent Respiratory effort is even, unlabored, Respiratory pattern is regular, symmetrical, Breath sounds are clear bilaterally. GI: Reports nausea, loss of taste and smell x1 week Patient currently denies diarrhea, vomiting. : No deficits noted. No signs and/or symptoms were reported regarding the genitourinary system. EENT: No deficits noted. No signs and/or symptoms were reported regarding the EENT system. Derm: No deficits noted. No signs and/or symptoms reported regarding the dermatologic system. Musculoskeletal: No deficits noted. No signs and/or symptoms reported regarding the musculoskeletal system. 13:00 Reassessment: Patient and/or family updated on plan of care and expected duration. Pain jr10 level reassessed. Patient is alert, oriented x 3, equal unlabored respirations, skin warm/dry/pink. 14:12 Reassessment: pt ambulated down hallway and back with portable pulse ox. Pt O2 sat jr10 noted to drop to 91% with HR at 97. Pt back to bed with O2 sats noted to increase to 94% with rest, HR decreased to 88. Pt has tachypnea noted without labored breathing, denies any cp. Reports generalized weakness, otherwise FRANCIA Aviles notified of assessment. 14:32 Reassessment: US at bedside. jr10 Vital Signs: 11:18 BP 112 / 52; Pulse 75; Resp 20 S; Temp 98.2(O); Pulse Ox 98% on R/A; Weight 88.9 kg aa5 (R); Height 5 ft. 7 in. (170.18 cm) (R); Pain 0/10; 12:27 BP 117 / 48; Pulse 71; Resp 22; Pulse Ox 96% on R/A; Pain 0/10; jr10 13:34 BP 121 / 54; Pulse 75; Resp 16; Pulse Ox 97% on R/A; Pain 0/10; jr10 14:15 Pulse 97; Resp 26; Pulse Ox 91% on R/A; jr10 14:23 BP 116 / 52; Pulse 70; Resp 18; Pulse Ox 98% on R/A; jr10 15:48 BP 127 / 56; Pulse 77; Resp 20; Pulse Ox 97% on R/A; Pain 0/10; jr10 11:18 Body Mass Index 30.70 (88.90 kg, 170.18 cm) aa5 14:15 ambulatory pulse ox jr10 ED Course: 11:00 Patient arrived in ED. as 11:18 Arm band placed on. aa5 11:21 Michael Valentine PA is PHCP. [facility] 11:21 Ty Gimenez MD is Attending Physician. jmm 11:25 Patient has correct armband on for positive identification. Bed in low position. Call jr10 light in reach. Side rails up X2. surveillance monitor on. Pulse ox on. NIBP on. 11:25 Inserted saline lock: 20 gauge in left antecubital area, using aseptic technique. IV is jr10 patent, is intact, with good blood return, Flushed. 11:26 Triage completed. aa5 11:38 Valarie Razo, ANGELICA is Primary Nurse. jr10 12:28 No provider procedures requiring assistance completed. jr10 12:35 Notified Nurse Practitioner and/or Physician [employer] Teacher of a critical lab result(s), jr10 lactic 2.7. 13:06 CT Chest For PE Angio In Process Unspecified. EDMS 14:42 US Extremity Venous W Compression Mg In Process Unspecified. EDMS 15:48 IV discontinued, intact, bleeding controlled, No redness/swelling at site. Pressure jr10 dressing applied. Administered Medications: 12:42 Drug: NS 0.9% 1000 ml Route: IV; Rate: 1 bolus; Site: left antecubital; jr10 15:50 Follow up: Response: No adverse reaction; IV Status: Completed infusion jr10 15:10 Drug: SOLU-Medrol 125 mg Route: IVP; Site: left antecubital; jr10 15:50 Follow up: Response: No adverse reaction jr10 Outcome: 15:15 Discharge ordered by . michelet 15:48 Discharged to home via wheelchair. jr10 15:48 Condition: improved 15:48 Discharge instructions given to patient, Instructed on discharge instructions, follow up and referral plans. Demonstrated understanding of instructions, follow-up care. 15:49 Patient left the ED. jr10 Signatures: Dispatcher [employer] EDMS Valentine, Michael, PA PA jmm Abhijit, Teresa as Estevez, Betty, RN RN aa5 Valarie Razo RN RN jr10
--- NOTE | 2020-01-08 12:26 | EKG ---
Test Date: 2020-01-07 Test Time: 12:09:56 [employer] Supervisor: SHANTA MEASUREMENT RESULTS: Intervals: Rate: 73 SD: 146 QRSD: 80 QT: 394 QTc: 434 Sheldon: P: 62 SD: 146 QRS: 38 T: 60 INTERPRETIVE STATEMENTS: Normal sinus rhythm Nonspecific ST and T wave abnormality Abnormal ECG Compared to ECG 01/28/2010 03:54:26 ST (T wave) deviation now present Electronically Signed On 01-08-20 12:22:58 CDT by Cheng Schneider
[2020-01-09 19:41] VITALS: TEMP 98.2
[2020-01-09 19:47] VITALS: BP 127/56; O2SAT 97
== END 2020-01-07 15:49 | disposition home or self-care (01) ==
LOC: ER 11:00
DX: U07.1 COVID-19 (principal); J12.89 Other viral pneumonia; Z88.0 Allergy status to penicillin; Z88.2 Allergy status to sulfonamides
CPT/HCPCS: 96361; 93005; 87040 ×2; 85025; 80048; 36415; 83735; 85610; 85379; 80076; 83605; 81003; 84484; 82728; 84145; 83880; 86140; 71275; 93970; 96374; 99284; Q9967; J7030; J2930

== ENCOUNTER 2020-01-09 02:15 | Inpatient (IN) | payer OTHER, MEDICARE ==
--- OUTSIDE RECORDS SUMMARY | 2020-01-09 02:16 | XMS REPORT | Continuity of Care Document ---
:1945 Author Organization [facility] t Address [address] [place] [address] [address]. [address]. [address] [place] [address] Care Team Providers Name Role Phone Nasra [...] Department ID 2020-01-03 2020-01-03 Emergency Natasha Chawla [facility] [id number] 13:32:00 17:51:00 Nasra Plummer [id number] [place] [id number] [place] [id number] 2020-01-03 2020-01-03 Orders Doctor RAMOS [id number] 00:00:00 00:00:00 Only UnassignedJUAN MANUEL [id number] [place] [facility] [id number] Results This patient has no known results.
[2020-01-09 03:54] LABS: Absolute Lymphocytes (CBC) 0.4 K/uL (0.7-4.9); Basophils % 0.1 % (0-1.3); Lymphocytes % 2.5 % (15.3-44.8); MPV 9.4 fL (7.6-11.3); RBC Red Blood Cell Count 4.16 M/uL (3.86-4.86)
[2020-01-09] MEDS ORDERED: ASPIRIN 81 MG CHEWABLE TABLET ONE ×2 (03:56→05:43)
[2020-01-09] MEDS ORDERED: FAMOTIDINE 20 MG/2 ML VIAL IV ONE ×2 (03:57→08:52)
[2020-01-09] MEDS ORDERED: ACETAMINOPHEN 325 MG TABLET ONE (03:57)
[2020-01-09] MEDS ORDERED: AZITHROMYCIN 500 MG INJ IVPB ONE (03:57)
[2020-01-09] MEDS ORDERED: dexAMETHasone 10 MG/ML VIAL ONE (03:57)
[2020-01-09] MEDS ORDERED: NA CHLORIDE 0.9% 250 ML ONE (03:57)
[2020-01-09] MEDS ORDERED: CEFTRIAXONE/SWI 1gm 1 GM/10 ML SYR ONE (03:57)
[2020-01-09] MEDS ORDERED: ALBUTEROL INHALER 60 PUFF/8 GM IH ONE (03:58)
[2020-01-09 04:14] LABS: ALT/SGPT 40 U/L (12-78); AST/SGOT 40 U/L (15-37); Albumin 2.7 g/dL (3.4-5.0); Alkaline Phosphatase 57 U/L (45-117); BUN Blood Urea Nitrogen 32 mg/dL (7-18); Bicarbonate 23 mmol/L (21-32); Bilirubin Direct 0.2 mg/dL (0-0.2); Bilirubin Total 0.4 mg/dL (0.2-1.0); Glucose Level 126 mg/dL (74-106); Magnesium 1.9 mg/dL (1.8-2.4); NT PRO-BNP 3313 pg/mL (<450); Potassium 4.2 mmol/L (3.5-5.1); Protein, Total 6.7 g/dL (6.4-8.2); Sodium Level 143 mmol/L (136-145); Troponin (Emerg Dept Use Only) < 0.02 ng/mL (0.0-0.045)
--- NOTE | 2020-01-09 04:15 | ER ---
Nurse's Notes [facility] Name: Sravanthi Mendoza Age: 74 yrs Sex: Female : 1945 Arrival Date: 01/09/2020 Time: 02:17 Bed 7 Private MD: Diagnosis: Hypoxemia;Pneumonia due to other specified bacteria-bilateral;Fever, unspecified;Elevated white blood cell count;Bandemia;Congenital hiatus hernia Presentation: 01/08 02:27 Chief complaint: Patient states: I was seen here on the 01/07/2020 for shortness of sg breath, reports having increased shortness of breath with lower o2 saturation at home on room air, also reports cough and fever, denies N/V/D at this time. Coronavirus screen: Client denies travel out of the [place] in the last 14 days. chills, fever, muscle pain, shortness of breath, Client reports previous positive COVID test result. 01/01/2020 initial swab at an urgent care center. Ebola Screen: Patient negative for fever greater than or equal to 101.5 degrees Fahrenheit, and additional compatible Ebola Virus Disease symptoms Patient denies exposure to infectious person. Patient denies travel to an Ebola-affected area in the 21 days before illness onset. No symptoms or risks identified at this time. Initial Sepsis Screen: Does the patient meet any 2 criteria? HR > 90 bpm. Does the patient have a suspected source of infection? Yes: Productive cough/pneumonia. Risk Assessment: Do you want to hurt yourself or someone else? Patient reports no desire to harm self or others. Onset of symptoms was January 09, 2020. Care prior to arrival: None. Transition of care: patient was not received from another setting of care. 02:27 Method Of Arrival: Wheelchair sg 02:27 Acuity: AIDEE 3 sg 02:27 Note pt daughter at bedside, reports pt has had some episodes of confusion this sg evening, pt has been staying with her daughter for care at home. Historical: - Allergies: 02:32 PENICILLINS; sg 02:32 Sulfa (Sulfonamide Antibiotics); sg - PMHx: 02:32 GERD; High Cholesterol; Hypertension; vit d deficiency; sg - Immunization history:: Adult Immunizations up to date. - Social history:: Smoking status: Patient denies any tobacco usage or history of. - Family history:: not pertinent. Screenin:35 Abuse screen: Denies threats or abuse. Denies injuries from another. Nutritional wh screening: No deficits noted. Tuberculosis screening: No symptoms or risk factors identified. Fall Risk None identified. Assessment: 02:35 General: Appears in no apparent distress. Behavior is calm, cooperative, appropriate wh for age. Pain: Denies pain. Neuro: Level of Consciousness is awake, alert, obeys commands, Oriented to person, place, time, situation, Appropriate for age. Cardiovascular: Heart tones S1 S2. Respiratory: Reports shortness of breath cough that is Airway is patent Respiratory effort is even, unlabored, Respiratory pattern is tachypnea Breath sounds are clear bilaterally. GI: Abdomen is flat, non-distended. : No signs and/or symptoms were reported regarding the genitourinary system. EENT: No signs and/or symptoms were reported regarding the EENT system. Derm: Skin is intact, is healthy with good turgor, Skin is pink, warm \T\ dry. normal. Musculoskeletal: Circulation, motion, and sensation intact. 02:42 Reassessment: Pt placed on 2LNC sats at 95% from 92% on RA. wh 04:00 Reassessment: Patient appears in no apparent distress at this time. No changes from previously documented assessment. Patient and/or family updated on plan of care and expected duration. Pain level reassessed. Patient is alert, oriented x 3, equal unlabored respirations, skin warm/dry/pink. Vital Signs: 02:33 BP 135 / 63; Pulse 100; Resp 18; Temp 99.4(O); Pulse Ox 92% on R/A; Weight 88.9 kg; Height 5 ft. 7 in. (170.18 cm); Pain 0/10; 04:00 BP 156 / 71; Pulse 95; Resp 20; Pulse Ox 95% on 2 lpm NC; wh 02:33 Body Mass Index 30.70 (88.90 kg, 170.18 cm) ED Course: 02:17 Patient arrived in ED. cl3 02:31 Triage completed. sg 02:32 Arm band placed on. sg 02:36 Patient has correct armband on for positive identification. Bed in low position. Call light in reach. Side rails up X 1. Pulse ox on. NIBP on. 02:37 Cole Prater is Primary Nurse. 02:50 Andrzej Zheng MD is Attending Physician. shari 02:50 Inserted saline lock: 22 gauge in right antecubital area, using aseptic technique. Blood collected. 03:52 XRAY Chest (1 view) In Process Unspecified. EDMS 04:14 Irwin Tyson MD is Hospitalizing Provider. shari 04:25 Notified ED physician of a critical lab result(s). Lactate 3.2. sg 04:53 No provider procedures requiring assistance completed. Patient admitted, IV remains in place. 05:16 Notified ED physician of a critical lab result(s). Bands of 11%. sg Administered Medications: 04:07 Drug: Aspirin 162 mg Route: PO; 04:29 Follow up: Response: No adverse reaction 04:07 Drug: Tylenol 650 mg Route: PO; 04:29 Follow up: Response: No adverse reaction 04:09 Drug: Decadron - Dexamethasone 6 mg Route: IVP; Site: right antecubital; 04:29 Follow up: Response: No adverse reaction 04:11 Drug: Pepcid 20 mg Route: IVP; Site: right antecubital; 04:29 Follow up: Response: No adverse reaction 04:13 Drug: Rocephin 1 grams Route: IV; Rate: per protocol; Site: right antecubital; 04:30 Follow up: Response: No adverse reaction; IV Status: Completed infusion 04:15 Drug: Zithromax 500 mg Route: IVPB; Infused Over: 1 hrs; Site: right antecubital; 04:54 Follow up: Response: No adverse reaction; IV Status: Infusion continued upon admission 04:17 Drug: Albuterol HFA Inhaler 4 puffs Route: Inhalation; 04:29 Follow up: Response: No adverse reaction 04:52 Drug: Lovenox 1 mg/kg Route: Sub-Q; Site: right lower abdomen; 04:54 Follow up: Response: No adverse reaction Outcome: 04:15 Decision to Hospitalize by Provider. shari 04:54 Admitted to ER Hold. Please see [facility] for further documentation. 04:54 Condition: stable 04:54 Instructed on the need for admit. 18:15 Patient left the ED. ph Signatures: Dispatcher [employer] EDJuanito Toroen, ANGELICA DOMINGUEZ sg Andrzej Zheng MD MD cha Hall, Patricia, RN RN Moi, Cole RogerDemetrius 3 Shasha Wray RN RN mt2 Corrections: (The following items were deleted from the chart) 02:27 Coronavirus screen: Client denies travel out of the [place] in the last 14 days. chills, fever, muscle pain, shortness of breath, Client reports previous positive COVID test result. 02:27 Onset of symptoms was January 09, 2020 [facility] 04:18 04:15 Rocephin 1 grams IV at per protocol in right antecubital wh 05: 02:27 Initial Sepsis Screen: Does the patient meet any 2 criteria? RR > 20 per min. wh Does the patient have a suspected source of infection? Yes: Productive cough/pneumonia 05: 02:33 BP 135 / 63; Pulse 100bpm; Resp 16bpm; Pulse Ox 92% RA; Temp 99.4F Oral; 88.9 kg; wh Height 5 ft. 7 in.; BMI: 30.7; Pain 0/10; mt2 05:28 02:27 Initial Sepsis Screen: Does the patient meet any 2 criteria? RR > 20 per min. Does the patient have a suspected source of infection? Yes: Productive cough/pneumonia
--- NOTE | 2020-01-09 04:15 | EDPHYS ---
Physician Documentation [facility] Name: Sravanthi Mendoza Age: 74 yrs Sex: Female : 1945 Arrival Date: 01/09/2020 Time: 02:17 Bed 7 Private MD: ED Physician Andrzej Zheng HPI: 01/08 04:10 This 74 yrs old Female presents to ER via Wheelchair with complaints of shari Covid, Cough. 04:10 The patient or guardian reports airway noise, cough, difficulty breathing. Onset: The shari symptoms/episode began/occurred 3 day(s) ago. Severity of symptoms: At their worst the symptoms were mild, moderate, in the emergency department the symptoms are unchanged. Modifying factors: The symptoms are alleviated by nothing, the symptoms are aggravated by nothing. Associated signs and symptoms: The patient has no apparent associated signs or symptoms. The patient has not experienced similar symptoms in the past. Historical: - Allergies: 02:32 PENICILLINS; sg 02:32 Sulfa (Sulfonamide Antibiotics); sg - PMHx: 02:32 GERD; High Cholesterol; Hypertension; vit d deficiency; sg - Immunization history:: Adult Immunizations up to date. - Social history:: Smoking status: Patient denies any tobacco usage or history of. - Family history:: not pertinent. ROS: 04:10 Constitutional: Negative for fever, chills, and weight loss, Eyes: Negative for injury, shari pain, redness, and discharge, ENT: Negative for injury, pain, and discharge, Neck: Negative for injury, pain, and swelling, Cardiovascular: Negative for chest pain, palpitations, and edema, Abdomen/GI: Negative for abdominal pain, nausea, vomiting, diarrhea, and constipation, Back: Negative for injury and pain, : Negative for injury, bleeding, discharge, and swelling, MS/Extremity: Negative for injury and deformity, Skin: Negative for injury, rash, and discoloration, Neuro: Negative for headache, weakness, numbness, tingling, and seizure, Psych: Negative for depression, anxiety, suicide ideation, homicidal ideation, and hallucinations, Allergy/Immunology: Negative for hives, rash, and allergies, Endocrine: Negative for neck swelling, polydipsia, polyuria, polyphagia, and marked weight changes, Hematologic/Lymphatic: Negative for swollen nodes, abnormal bleeding, and unusual bruising. 04:10 Respiratory: Positive for cough, shortness of breath, at rest. Exam: 04:10 Constitutional: This is a well developed, well nourished patient who is awake, alert, shari and in no acute distress. Head/Face: Normocephalic, atraumatic. Eyes: Pupils equal round and reactive to light, extra-ocular motions intact. Lids and lashes normal. Conjunctiva and sclera are non-icteric and not injected. Cornea within normal limits. Periorbital areas with no swelling, redness, or edema. ENT: Nares patent. No nasal discharge, no septal abnormalities noted. Tympanic membranes are normal and external auditory canals are clear. Oropharynx with no redness, swelling, or masses, exudates, or evidence of obstruction, uvula midline. Mucous membranes moist. Neck: Trachea midline, no thyromegaly or masses palpated, and no cervical lymphadenopathy. Supple, full range of motion without nuchal rigidity, or vertebral point tenderness. No Meningismus. Chest/axilla: Normal chest wall appearance and motion. Nontender with no deformity. No lesions are appreciated. Cardiovascular: Regular rate and rhythm with a normal S1 and S2. No gallops, murmurs, or rubs. Normal PMI, no JVD. No pulse deficits. Abdomen/GI: Soft, non-tender, with normal bowel sounds. No distension or tympany. No guarding or rebound. No evidence of tenderness throughout. Back: No spinal tenderness. No costovertebral tenderness. Full range of motion. Female : Normal external genitalia. Skin: Warm, dry with normal turgor. Normal color with no rashes, no lesions, and no evidence of cellulitis. MS/ Extremity: Pulses equal, no cyanosis. Neurovascular intact. Full, normal range of motion. Neuro: Awake and alert, GCS 15, oriented to person, place, time, and situation. Cranial nerves II-XII grossly intact. Motor strength 5/5 in all extremities. Sensory grossly intact. Cerebellar exam normal. Normal gait. Psych: Awake, alert, with orientation to person, place and time. Behavior, mood, and affect are within normal limits. 04:10 Respiratory: mild respiratory distress is noted, Respirations: normal, no acute changes, labored breathing, is not present, Breath sounds: bronchial sounds, that are mild, decreased breath sounds, that are mild, Respiratory rate: 16 04:10 Musculoskeletal/extremity: DVT Exam: No signs of deep vein thrombosis. no pain, no swelling, no tenderness, negative Homans' sign noted on exam, no appreciated bluish discoloration, no erythema, no increased warmth. 04:29 ECG was reviewed by the Attending Physician. [facility] Vital Signs: 02:33 BP 135 / 63; Pulse 100; Resp 18; Temp 99.4(O); Pulse Ox 92% on R/A; Weight 88.9 kg; wh Height 5 ft. 7 in. (170.18 cm); Pain 0/10; 04:00 BP 156 / 71; Pulse 95; Resp 20; Pulse Ox 95% on 2 lpm NC; wh 02:33 Body Mass Index 30.70 (88.90 kg, 170.18 cm) wh MDM: 02:50 Patient medically screened. [facility] 04:12 Differential Diagnosis: Obstructed Airway Bronchitis Influenza Upper Respiratory shari Infection Otitis Media Asthma Exacerbation Pneumonia. Data reviewed: vital signs, nurses notes, lab test result(s), EKG, radiologic studies. Data interpreted: stable manager: rate is 100 beats/min, Pulse oximetry: on room air is 92 %. Test interpretation: by ED physician or midlevel provider: ECG, plain radiologic studies. Counseling: I had a detailed discussion with the patient and/or guardian regarding: the historical points, exam findings, and any diagnostic results supporting the discharge/admit diagnosis, lab results, radiology results, the need for further work-up and treatment in the hospital. ED course: pt improved, will admit, dr duval, on oxygen 2 liters. 01/08 03:12 Order name: Basic Metabolic Panel; Complete Time: 04:32 [facility] 01/08 03:12 Order name: CBC with Diff; Complete Time: 05:41 [facility] 01/08 03:12 Order name: LFT's; Complete Time: 04:32 [facility] 01/08 03:12 Order name: Magnesium; Complete Time: 04:32 [facility] 01/08 03:12 Order name: NT PRO-BNP; Complete Time: 04:32 [facility] 01/08 03:12 Order name: PT-INR; Complete Time: 04:32 [facility] 01/08 03:12 Order name: Troponin (emerg Dept Use Only); Complete Time: 04:32 [facility] 01/08 03:10 Order name: XRAY Chest (1 view) 01/08 03:12 Order name: Blood Culture Adult (2) [facility] 01/08 03:12 Order name: Procalcitonin; Complete Time: 05:41 [facility] 01/08 03:12 Order name: Lactate; Complete Time: 04:32 [facility] 01/08 03:12 Order name: D-Dimer; Complete Time: 04:32 [facility] 01/08 03:56 Order name: Manual Differential; Complete Time: 05:41 [facility] 01/08 04:33 Order name: CT Chest For PE Angio [facility] 01/08 06:29 Order name: Lactate Sepsis 2 HR Follow-up [facility] 01/08 08:17 Order name: Troponin I [facility] 01/08 09:31 Order name: C-Reactive Protein [facility] 01/08 13:22 Order name: Troponin I [facility] 01/08 15:11 Order name: CT [facility] 01/08 03:10 Order name: EKG; Complete Time: 03:10 01/08 03:10 Order name: Cardiac monitoring; Complete Time: 03:50 01/08 03:10 Order name: EKG - Nurse/Tech; Complete Time: 03:50 01/08 03:10 Order name: IV Saline Lock; Complete Time: 03:50 01/08 03:10 Order name: Labs collected and sent; Complete Time: 03:50 01/08 03:10 Order name: O2 Per Protocol; Complete Time: 03:50 01/08 03:10 Order name: O2 Sat Monitoring; Complete Time: 03:50 01/08 03:12 Order name: EKG; Complete Time: 03:13 [facility] 01/08 03:12 Order name: Cardiac monitoring; Complete Time: 03:50 [facility] 01/08 03:12 Order name: EKG - Nurse/Tech; Complete Time: 03:50 [facility] 01/08 03:12 Order name: IV Saline Lock; Complete Time: 03:50 [facility] 01/08 03:12 Order name: Labs collected and sent; Complete Time: 03:50 [facility] 01/08 03:12 Order name: O2 Per Protocol; Complete Time: 03:50 [facility] 01/08 03:12 Order name: O2 Sat Monitoring; Complete Time: 03:50 [facility] 01/08 04:19 Order name: CONS Physician Consult EDMS EC:29 Rate is 94 beats/min. Rhythm is regular. QRS [place] is Normal. CT interval is normal. QRS shari interval is normal. QT interval is normal. No Q waves. T waves are Normal. No ST changes noted. Clinical impression: Normal ECG and No evidence of ischemia. Interpreted by me. Reviewed by me. Administered Medications: 04:07 Drug: Aspirin 162 mg Route: PO; 04:29 Follow up: Response: No adverse reaction 04:07 Drug: Tylenol 650 mg Route: PO; 04:29 Follow up: Response: No adverse reaction 04:09 Drug: Decadron - Dexamethasone 6 mg Route: IVP; Site: right antecubital; 04:29 Follow up: Response: No adverse reaction 04:11 Drug: Pepcid 20 mg Route: IVP; Site: right antecubital; 04:29 Follow up: Response: No adverse reaction 04:13 Drug: Rocephin 1 grams Route: IV; Rate: per protocol; Site: right antecubital; 04:30 Follow up: Response: No adverse reaction; IV Status: Completed infusion wh 04:15 Drug: Zithromax 500 mg Route: IVPB; Infused Over: 1 hrs; Site: right antecubital; 04:54 Follow up: Response: No adverse reaction; IV Status: Infusion continued upon admission 04:17 Drug: Albuterol HFA Inhaler 4 puffs Route: Inhalation; 04:29 Follow up: Response: No adverse reaction 04:52 Drug: Lovenox 1 mg/kg Route: Sub-Q; Site: right lower abdomen; 04:54 Follow up: Response: No adverse reaction Disposition: 01/09/20 04:15 Hospitalization ordered by Irwin Duval for Inpatient Admission. Preliminary diagnosis are Hypoxemia, Pneumonia due to other specified bacteria - bilateral, Fever, unspecified, Elevated white blood cell count, Bandemia, Congenital hiatus hernia. - Bed requested for Intensive Care Unit. - Status is Inpatient Admission. ph - Condition is Fair. - Problem is new. - Symptoms have improved. Signatures: Dispatcher [employer] EDMS Everett Guthrie RN RN sg Anderson, Corey, MD MD cha Lasagna, Tonya, RN RN tl1 Isabel Haq RN RN Cole Prater Asher, Real, RN RN ja1 Corrections: (The following items were deleted from the chart) 03:15 03:13 Chest Single View+RAD.RAD.BRZ ordered. [facility] EDTN 03:49 03:10 BASIC METABOLIC PANEL+C.LAB.BRZ ordered. [facility] EDTN 03:49 03:10 CBC+H.LAB.BRZ ordered. [facility] EDTN 03:49 03:10 HEPATIC FUNCTION+C.LAB.BRZ ordered. [facility] EDTN 03:49 03:10 MAGNESIUM+C.LAB.BRZ ordered. [facility] EDTN 03:49 03:10 PROBNP+C.LAB.BRZ ordered. [facility] EDTN 03:49 03:10 PROTIME (+INR)+COAG.LAB.BRZ ordered. [facility] EDTN 03:49 03:10 TROPONIN (EMERG DEPT USE ONLY)+C.LAB.BRZ ordered. [facility] EDTN 04:35 04:15 Hospitalization Ordered by Irwin Duval MD for Inpatient Admission. Preliminary tl1 diagnosis is Hypoxemia; Pneumonia due to other specified bacteria - bilateral; Fever, unspecified. Bed requested for Telemetry/MedSurg (Inpatient). Status is Inpatient Admission. Condition is Fair. Problem is new. Symptoms have improved. shari 05:42 04:35 01/09/2020 04:15 Hospitalization Ordered by Irwin Duval MD for Inpatient shari Admission. Preliminary diagnosis is Hypoxemia; Pneumonia due to other specified bacteria - bilateral; Fever, unspecified. Bed requested for [facility] ER HOLD. Status is Inpatient Admission. Condition is Fair. Problem is new. Symptoms have improved. tl1 06:46 05:42 01/09/2020 04:15 Hospitalization Ordered by Irwin Duval MD for Inpatient shari Admission. Preliminary diagnosis is Hypoxemia; Pneumonia due to other specified bacteria - bilateral; Fever, unspecified; Elevated white blood cell count; Bandemia. Bed requested for [facility] ER HOLD. Status is Inpatient Admission. Condition is Fair. Problem is new. Symptoms have improved. shari 17:13 06:46 01/09/2020 04:15 Hospitalization Ordered by Irwin Duval MD for Inpatient ja1 Admission. Preliminary diagnosis is Hypoxemia; Pneumonia due to other specified bacteria - bilateral; Fever, unspecified; Elevated white blood cell count; Bandemia; Congenital hiatus hernia. Bed requested for [facility] ER HOLD. Status is Inpatient Admission. Condition is Fair. Problem is new. Symptoms have improved. shari 18:15 17:13 01/09/2020 04:15 Hospitalization Ordered by Irwin Duval MD for Inpatient ph Admission. Preliminary diagnosis is Hypoxemia; Pneumonia due to other specified bacteria - bilateral; Fever, unspecified; Elevated white blood cell count; Bandemia; Congenital hiatus hernia. Bed requested for Intensive Care Unit. Status is Inpatient Admission. Condition is Fair. Problem is new. Symptoms have improved. ja1
[2020-01-09 04:20] LABS: Protime INR 0.91
[2020-01-09] MEDS ORDERED: ENOXAPARIN 100 MG/ML SYR SQ ONE (04:53)
[2020-01-09] MEDS ORDERED: ALBUTEROL 2.5 MG/3 ML NEB SOL NEB PRN (05:03)
[2020-01-09] MEDS ORDERED: IPRATROPIUM BROM 0.5MG/2.5ML NEB PRN (05:03)
[2020-01-09] MEDS ORDERED: MORPHINE 2 MG/ML SYR IV PRN (05:03)
[2020-01-09] MEDS ORDERED: ASPIRIN 81 MG CHEWABLE TABLET PO ONE (05:03)
[2020-01-09 05:17] LABS: Blood Morphology Comment NOT SEEN (NOT SEEN); Platelet Estimate ADEQ
--- NOTE | 2020-01-09 08:54 | RAD REPORT ---
EXAM DESCRIPTION: RAD - Chest Single View - 01/09/2020 3:52 am CLINICAL HISTORY: COUGH Chest pain. COMPARISON: CHEST SINGLE VIEW dated 01/28/2010; Chest For Pe Angio dated 01/09/2020 FINDINGS: Portable technique limits examination quality. Moderate bilateral pulmonary opacities are present, slightly greater on right, suspicious for viral p neumonia. The heart is mildly enlarged in size. No displaced fractures.
[2020-01-09] MEDS ORDERED: FAMOTIDINE 20 MG/2 ML VIAL IV SCH (09:00)
[2020-01-09] MEDS ORDERED: CEFTRIAXONE 1 GM/NS 50 ML 1 GM/50 ML BAG IV SCH (09:00)
[2020-01-09] MEDS ORDERED: METHYLPREDNISOLONE 125 MG INJ IV ONE (09:01)
[2020-01-09] MEDS ORDERED: PNEUMOCOCCAL VACCINE 0.5 ML IMVAC ONE (10:00)
[2020-01-09] MEDS ORDERED: dexAMETHasone 4 MG/ML VIAL IV SCH (10:00)
[2020-01-09] MEDS ORDERED: METHYLPREDNISOLONE 125 MG INJ ONE (10:18)
[2020-01-09] MEDS: ONDANSETRON 4 MG/2 ML VIAL IV PRN (13:00)
[2020-01-09] MEDS ORDERED: TRAMADOL HCL 50 MG TAB PO PRN (13:15)
--- NOTE | 2020-01-09 13:27 | P.CNS ---
Date of Consult: 01/09/20 Reason for Consult: Schreiber virus pneumonia Chief Complaint: Shortness of breath History of Present Illness: Patient is 74 years of age who recently diagnosed with schreiber virus admitted with worsening dyspnea and palpitations loss of smell and taste was recently here in emergency room still short of breath Allergies Penicillins Adverse Reaction (Verified 01/09/20 04:59) Anaphylaxis Sulfa (Sulfonamide Antibiotics) Adverse Reaction (Verified 01/09/20 04:59) Anaphylaxis Home Medications: Famotidine [Pepcid] 20 mg PO BID 01/09/20 Losartan Potassium 50 mg PO DAILY 01/09/20 Pravastatin Sodium [Pravachol] 20 mg PO BEDTIME 01/09/20 - Past Medical/Surgical History Diabetic: No -: GERD -: High Cholesterol -: HTN - Social History Place of Residence: Home Review of Systems 10-point ROS is otherwise unremarkable General: Weakness Respiratory: Shortness of Breath Physical Examination Temp Pulse Resp BP Pulse Ox 98.2 F 93 H 16 140/95 H 94 01/09/20 08:00 01/09/20 08:00 01/09/20 13:00 01/09/20 08:00 01/09/20 13:00 General: Alert, In no apparent distress, Oriented x3 Respiratory: Clear to auscultation bilaterally Gastrointestinal: Normal bowel sounds, Non-distended Laboratory Data (last 24 hrs) 01/09/20 03:25: PT 10.7, INR 0.91 01/09/20 03:25: WBC 15.9 H D, Hgb 11.8 L, Hct 35.0 L, Plt Count 172 D 01/09/20 03:25: Sodium 143, Potassium 4.2, BUN 32 H, Creatinine 1.18, Glucose 126 H, Magnesium 1.9, Total Bilirubin 0.4, AST 40 H, ALT 40, Alkaline Phosphatase 57 01/09/20 03:10: PT Cancelled, INR Cancelled 01/09/20 03:10: WBC Cancelled, Hgb Cancelled, Hct Cancelled, Plt Count Cancelled 01/09/20 03:10: Sodium Cancelled, Potassium Cancelled, BUN Cancelled, Creatinine Cancelled, Glucose Cancelled, Magnesium Cancelled, Total Bilirubin Cancelled, AST Cancelled, ALT Cancelled, Alkaline Phosphatase Cancelled - Problems (1) Pneumonia due to severe acute respiratory syndrome coronavirus Current Visit: Yes Status: Acute Plan: Patient is 74 years of age admitted with respiratory distress from schreiber virus S she is currently stable oxygenation satisfactory CRP mildly elevated continue with IV steroids multivitamin supplement may need home oxygen possible discharge tomorrow continue with prednisone 20 mg twice a day for at least 2 weeks in addition to full anti coag pro calcitonin level is negative Dc antibiotics
[2020-01-09] MEDS ORDERED: ONDANSETRON 4 MG/2 ML VIAL ONE (13:44)
[2020-01-09] MEDS ORDERED: MORPHINE 2 MG/ML SYR ONE (13:44)
[2020-01-09] MEDS: ASCORBIC ACID 500 MG TABLET PO SCH ×2 (14:00→20:31)
--- NOTE | 2020-01-09 15:10 | RAD REPORT ---
EXAM DESCRIPTION: CTA CHEST WITH CONTRAST CLINICAL HISTORY: CHEST PAIN COMPARISON: None. TECHNIQUE: Axial CT imaging of the thorax utilizing intravenous contrast. Reformatted multiplanar im ages obtained including reconstructed maximum intensity projection images. This exam was performed according to our departmental dose-optimization program which includes automa darcie exposure control, adjustment of the mA and/or kV according to patient size and/or use of iterativ e reconstruction technique FINDINGS: PULMONARY ARTERIES: Normal caliber main pulmonary artery. No pulmonary artery embolism. L imited assessment of the lower lobe pulmonary arteries due to adjacent parenchymal opacities. HEART/GREAT VESSELS: Heart is normal in size. Normal caliber thoracic aorta with mild atherosclerosi s. Normal branch pattern of the arch vessels. MEDIASTINUM/GEOFFREY: Nonenlarged mediastinal lymph nodes. Normal central airways. Normal esophagus. Sma ll hiatal hernia. LUNGS/PLEURA: Numerous scattered patchy groundglass opacities throughout the right and left lung. No pneumothorax. No edema. Minimal layering bilateral pleural fluid. No pneumothorax. CHEST WALL/SOFT TISSUES: There is a 1.6 cm inferior right thyroid nodule with calcifications. No axi llary adenopathy. Sternum is intact. Generalized decreased bone density. There are lucent stippled le sions within the T1 and T10 vertebral bodies compatible with hemangiomas. UPPER ABDOMEN: Mild fatty liver infiltration. Normal spleen and imaged pancreas. Small hiatal hernia . IMPRESSION: 1. No pulmonary embolism. 2. Multifocal groundglass opacities throughout the right and left lung with small pleural effusions. Differential includes viral pneumonia. 3. Mild fatty liver infiltration. 4. Bilateral hiatal hernia. 5. Inferior right thyroid 1.6 cm nodule. Sonography recommended to further characterize. 6. Thoracic hemangiomas. Electronically signed by: Emily Jane DO 01/09/2020 6:18 AM CDT Due to temporary technical issues with the PACS/Fluency reporting system, reports are being signed by the in house radiologist without review as a courtesy to ensure prompt reporting. The interpreting r adiologist is fully responsible for the content of the report.
[2020-01-09] MEDS ORDERED: CEFTRIAXONE/SWI 1gm 1 GM/10 ML SYR IVP SCH (16:00)
[2020-01-09] MEDS ORDERED: ENOXAPARIN 40 MG/0.4 ML SQ SCH (17:00)
[2020-01-09] MEDS: ATORVASTATIN 40 MG TAB PO SCH (20:31)
[2020-01-09] MEDS: MELATONIN 3 MG TABLET PO SCH (20:31)
[2020-01-09] MEDS: APIXABAN 5 MG TABLET PO SCH (20:32)
[2020-01-09] MEDS ORDERED: METHYLPREDNISOLONE 125 MG INJ IV SCH (21:00)
--- NOTE | 2020-01-09 21:09 | P.HP ---
Certification for Inpatient Patient admitted to: Inpatient With expected LOS: >2 Midnights Practitioner: I am a practitioner with admitting privileges, knowledge of patient current condition, hospital course, and medical plan of care. Services: Services provided to patient in accordance with Admission requirements found in Title 42 Section 412.3 of the Code of Federal Regulations Patient History Date of Service: 01/09/20 Reason for admission: Shortness of breath History of Present Illness: MS KATZ IS A PATIENT WITH HTN AND HAS HAD COVID 19 INFECTION FOR LAST FEW DAYS. INITIALLY I TREATED THIS ON OUTPATIENT BASIS WITH STEROIDS, ZITHROMAX, NEBULIZER, ANTIOAGULATION. SHE COMPLAINED OF BEING DYSPNEIC FAMILY BROUGHT HER TO ER, HER OXYGEN AFTER AMBULATION STAYED ABOUT 92%. SHE WAS SENT HOME. I CALLED HER NIGHT BEFORE AND FAMILY SAID SHE FELT GREAT AFTER I GOT HER AN IV DOSE OF STEROID. SHE LAST NIGHT GOT WORSE ITH DYSPNA, OXYGEN DROPED TO 80-86% FAMILY BROUGHT HER BACK AND SHE IS NOW ADMITTED. SHE IS FEELING A LOT BETTER BUT HAS ACHES ALL OVER AND IS FATIGUED. HER CRP IS HIGH, HER WBC IS HIGH FROM STEORIDS. Allergies Penicillins Adverse Reaction (Verified 01/09/20 04:59) Anaphylaxis Sulfa (Sulfonamide Antibiotics) Adverse Reaction (Verified 01/09/20 04:59) Anaphylaxis Home Medications: Famotidine [Pepcid] 20 mg PO BID 01/09/20 Losartan Potassium 50 mg PO DAILY 01/09/20 Pravastatin Sodium [Pravachol] 20 mg PO BEDTIME 01/09/20 - Past Medical/Surgical History Has patient received pneumonia vaccine in the past: No Diabetic: No -: GERD -: High Cholesterol -: HTN - Social History Smoking Status: Never smoker Place of Residence: Home Review of Systems 10-point ROS is otherwise unremarkable Respiratory: Shortness of Breath Physical Examination - Vital Signs Temperature: 97.4 F Blood Pressure: 139/63 Pulse: 74 Respirations: 11 Pulse Ox (%): 95 - Physical Exam General: Alert, Moderate distress Other Physical/Emotional Findings: SHE COULD NOT DO TELEHEALTH VISIT. - Studies Laboratory Data (last 24 hrs) 01/09/20 03:25: PT 10.7, INR 0.91 01/09/20 03:25: WBC 15.9 H D, Hgb 11.8 L, Hct 35.0 L, Plt Count 172 D 01/09/20 03:25: Sodium 143, Potassium 4.2, BUN 32 H, Creatinine 1.18, Glucose 126 H, Magnesium 1.9, Total Bilirubin 0.4, AST 40 H, ALT 40, Alkaline Phosphatase 57 01/09/20 03:10: PT Cancelled, INR Cancelled 01/09/20 03:10: WBC Cancelled, Hgb Cancelled, Hct Cancelled, Plt Count Cancelled 01/09/20 03:10: Sodium Cancelled, Potassium Cancelled, BUN Cancelled, Creatinine Cancelled, Glucose Cancelled, Magnesium Cancelled, Total Bilirubin Cancelled, AST Cancelled, ALT Cancelled, Alkaline Phosphatase Cancelled Assessment and Plan - Problems (Diagnosis) (1) Pneumonia due to severe acute respiratory syndrome coronavirus Current Visit: Yes Status: Acute Plan: IV STEROIDS INAHLER IN HOSPITAL NEBULIZER IS NOT POSSIBLE. VITAMINS SUPPORTIVE CARE DVT PROPHYLAXIS. - Advance Directives Does patient have a Living Will: No Does patient have a Durable POA for Healthcare: No
[2020-01-10] MEDS: ACETAMINOPHEN 325 MG TABLET PO PRN (01:19)
[2020-01-10] MEDS ORDERED: AZITHROMYCIN IV 500 MG in NA CHLORIDE 0.9% 250 ML IVPB SCH (05:00)
[2020-01-10 05:14] LABS: Absolute Lymphocytes (CBC) 0.5 K/uL (0.7-4.9); Basophils % 0.1 % (0-1.3); Hematocrit 33.9 % (36.0-45.0); Lymphocytes % 2.8 % (15.3-44.8); MPV 9.9 fL (7.6-11.3); RBC Red Blood Cell Count 4.02 M/uL (3.86-4.86)
[2020-01-10 05:32] LABS: Ferritin 787.6 ng/mL (8-388); Potassium 4.7 mmol/L (3.5-5.1)
[2020-01-10] MEDS: LOSARTAN POTASSIUM 50 MG TABLET PO SCH (08:55)
[2020-01-10] MEDS: FAMOTIDINE 20 MG TAB PO SCH ×2 (08:55→20:06)
[2020-01-10] MEDS: ASCORBIC ACID 500 MG TABLET PO SCH ×3 (08:55→20:06)
[2020-01-10] MEDS: APIXABAN 5 MG TABLET PO SCH ×2 (08:55→20:06)
[2020-01-10] MEDS: VITAMIN D 1000 UNIT TAB PO SCH (08:57)
[2020-01-10] MEDS: METHYLPREDNISOLONE 125 MG INJ IV SCH ×2 (08:57→20:06)
[2020-01-10] MEDS: AZITHROMYCIN 250 MG TAB PO SCH (08:57)
[2020-01-10] MEDS: THIAMINE 200 MG/2 ML INJ IVP SCH (08:57)
--- NOTE | 2020-01-10 09:16 | RAD REPORT ---
EXAM DESCRIPTION: RAD - Chest Single View - 01/10/2020 6:27 am CLINICAL HISTORY: Chest Pain Chest pain. COMPARISON: Chest Single View dated 01/09/2020; CHEST SINGLE VIEW dated 01/28/2010; Chest For Pe Angio dated 01/09/2020 FINDINGS: Portable technique limits examination quality. Extensive bilateral pulmonary opacities have mildly progressed since comparative study. The heart is normal in size. No displaced fractures. IMPRESSION: Mild worsening in lung aeration since yesterday's study.
--- NOTE | 2020-01-10 11:14 | EKG ---
Test Date: 2020-01-09 Test Time: 03:17:29 Thread Drawer: LISA MEASUREMENT RESULTS: Intervals: Rate: 93 W[place]: 136 QRSD: 66 QT: 362 QTc: 450 [place]: P: 65 [place]: 136 QRS: 69 T: 65 INTERPRETIVE STATEMENTS: Normal sinus rhythm Nonspecific ST and T wave abnormality Abnormal ECG Compared to ECG 01/07/2020 12:09:56 No significant changes Electronically Signed On 01-10-20 11:10:34 CDT by Cheng Schneider
--- NOTE | 2020-01-10 11:14 | EKG ---
Test Date: 2020-01-09 Test Time: 03:19:40 Home Health Rn: MEASUREMENT RESULTS: Intervals: Rate: 94 [place]: 138 QRSD: 72 QT: 338 QTc: 422 [place]: P: 53 [place]: 138 QRS: 52 T: 50 INTERPRETIVE STATEMENTS: Normal sinus rhythm Nonspecific ST and T wave abnormality Abnormal ECG Compared to ECG 01/09/2020 03:17:29 No significant changes Electronically Signed On 01-10-20 11:10:33 CDT by Cheng Schneider
[2020-01-10] MEDS: ONDANSETRON 4 MG/2 ML VIAL IV PRN (13:28)
--- NOTE | 2020-01-10 18:43 | PN ---
Subjective: The patient is feeling a lot better. Denies chest pain, nausea, vomiting. She is able to talk to me without shortness of breath, without stopping for breathing. She is sitting on the lula e of the bed, comfortably. Objective: VITAL SIGNS: Blood pressure is 167/88, temperature 97.3, pulse ox anywhere from 90% to 9 3% on 2 L. This was a telehealth visit. Assessment/plan: COVID pneumonia. The patient is on anticoagulation for prophylaxis. She is on neb ulizer at home, not in the hospital per law. She is on steroids IV, clinically improving. She shoul d be going home, but if she gets very nervous, anxious at home with any shortness of breath and comes back to emergency room, so we are going to get her oxygen supply at home before she can go home tayla rrow. Clinically stable with overall guarded prognosis. COVID pneumonia will take about 2 or 3 nathaniel hs to recover and but she is not declining rapidly, which is a great sign at this point. DEJAN/JAGDISH Voice ID: [id number] Report ID: [id number]
[2020-01-10] MEDS: MELATONIN 3 MG TABLET PO SCH (20:06)
[2020-01-10] MEDS: ATORVASTATIN 40 MG TAB PO SCH (20:06)
[2020-01-11 05:21] LABS: C-Reactive Protein 97.5 mg/L (<3.00)
[2020-01-11 08:06] LABS: Ferritin 834.6 ng/mL (8-388)
[2020-01-11] MEDS: AZITHROMYCIN 250 MG TAB PO SCH (09:44)
[2020-01-11] MEDS: FAMOTIDINE 20 MG TAB PO SCH ×2 (09:45→20:30)
[2020-01-11] MEDS: ASCORBIC ACID 500 MG TABLET PO SCH ×3 (09:45→20:29)
[2020-01-11] MEDS: LOSARTAN POTASSIUM 50 MG TABLET PO SCH (09:45)
[2020-01-11] MEDS: THIAMINE 200 MG/2 ML INJ IVP SCH (09:45)
[2020-01-11] MEDS: VITAMIN D 1000 UNIT TAB PO SCH (09:45)
[2020-01-11] MEDS: APIXABAN 5 MG TABLET PO SCH ×2 (09:45→20:29)
[2020-01-11] MEDS: METHYLPREDNISOLONE 125 MG INJ IV SCH ×2 (09:45→20:29)
--- NOTE | 2020-01-11 11:18 | P.PN ---
Subjective Date of Service: 01/11/20 Chief Complaint: Schreiber virus pneumonia Patient's condition is stable she stated the sats on minimal exertion still requiring high concentrations of oxygen Review of Systems General: Weakness Respiratory: Shortness of Breath Physical Examination - Vital Signs Temperature: 97.9 F Blood Pressure: 164/86 Pulse: 102 Respirations: 19 Pulse Ox (%): 87 - Physical Exam General: Alert, Oriented x3 Respiratory: Diminished, Crackles/rales Other Physical/Emotional Findings: SHE COULD NOT DO TELEHEALTH VISIT. Assessment & Plan - Problems (Diagnosis) (1) Pneumonia due to severe acute respiratory syndrome coronavirus Current Visit: Yes Status: Acute Plan: Patient is 74 years of age admitted with schreiber virus pneumonia are CRP is not declining continue negative fluid balance start on some Lasix spironolactone continue with high-dose steroids continue to titrate O2 down to a sat be doing 85 and 90% Dc antibiotics oxygen has been ordered patient is fully anti coagulated
--- NOTE | 2020-01-11 11:40 | P.PN ---
Subjective Date of Service: 01/11/20 Chief Complaint: Schreiber virus pneumonia Subjective: Improving SHE IS STILL FATIUGED AND DYSPNEIC. SHE IS ON HIGH FLOW OXYGEN. SHE DENIES ANY CHEST PAIN. Review of Systems 10-point ROS is otherwise unremarkable General: Weakness, Malaise Respiratory: Shortness of Breath Physical Examination - Vital Signs Temperature: 97.9 F Blood Pressure: 164/86 Pulse: 102 Respirations: 19 Pulse Ox (%): 87 - Physical Exam Other Physical/Emotional Findings: SHE COULD NOT DO TELEHEALTH VISIT. TALKED TO HER. REVIEWED VITAL SIGNS. TALKED TO NURSING STAFF. OXYGEN SATURATION IS STILL LOW. HEART MONITORING- SINUS RHYTHM Assessment And Plan - Current Problems (Diagnosis) (1) Pneumonia due to severe acute respiratory syndrome coronavirus Current Visit: Yes Status: Acute Plan: IV STEROIDS INAHLER IN HOSPITAL NEBULIZER IS NOT POSSIBLE. VITAMINS SUPPORTIVE CARE DVT PROPHYLAXIS. STABLE. OXYGEN SUPPORT. DISCUSSED WITH DR. CAMPOS. HE IS NOT SEEING AN BENEFIT OF PLASMA, REMDESIVIR OR HCQ. TALKED TO DAUGHTER AND SON. THEY ARE AWARE.
[2020-01-11] MEDS: SPIRONOLACTONE 25 MG TABLET PO SCH (11:57)
[2020-01-11] MEDS: FUROSEMIDE 20 MG/ 2ML VIAL IV SCH (11:57)
[2020-01-11] MEDS: HYDROCODONE/CHLORPHEN 5 ML/OSYR PO PRN (14:07)
[2020-01-11] MEDS: ATORVASTATIN 40 MG TAB PO SCH (20:29)
[2020-01-11] MEDS: MELATONIN 3 MG TABLET PO SCH (20:29)
[2020-01-12] MEDS: HYDROCODONE/CHLORPHEN 5 ML/OSYR PO PRN ×2 (02:00→15:43)
[2020-01-12 04:50] LABS: C-Reactive Protein 51.9 mg/L (<3.00); Ferritin 842.9 ng/mL (8-388)
[2020-01-12] MEDS: VITAMIN D 1000 UNIT TAB PO SCH (08:43)
[2020-01-12] MEDS: LOSARTAN POTASSIUM 50 MG TABLET PO SCH (08:43)
[2020-01-12] MEDS: SPIRONOLACTONE 25 MG TABLET PO SCH (08:43)
[2020-01-12] MEDS: METHYLPREDNISOLONE 125 MG INJ IV SCH ×2 (08:44→21:00)
[2020-01-12] MEDS: FAMOTIDINE 20 MG TAB PO SCH ×2 (08:44→20:01)
[2020-01-12] MEDS: THIAMINE 200 MG/2 ML INJ IVP SCH (08:44)
[2020-01-12] MEDS: FUROSEMIDE 20 MG/ 2ML VIAL IV SCH (08:44)
[2020-01-12] MEDS: APIXABAN 5 MG TABLET PO SCH ×2 (08:44→20:01)
[2020-01-12] MEDS: ASCORBIC ACID 500 MG TABLET PO SCH ×3 (08:44→20:01)
--- NOTE | 2020-01-12 09:51 | P.PN ---
Subjective Date of Service: 01/12/20 Chief Complaint: Schreiber virus pneumonia P patient is steadily improving still has shortness of breath on minimal exertion Review of Systems General: Weakness Respiratory: Shortness of Breath Physical Examination - Vital Signs Temperature: 98.7 F Blood Pressure: 161/86 Pulse: 86 Respirations: 20 Pulse Ox (%): 90 - Physical Exam Other Physical/Emotional Findings: SHE COULD NOT DO TELEHEALTH VISIT. TALKED TO HER. REVIEWED VITAL SIGNS. TALKED TO NURSING STAFF. OXYGEN SATURATION IS STILL LOW. HEART MONITORING- SINUS RHYTHM Assessment & Plan - Problems (Diagnosis) (1) Pneumonia due to severe acute respiratory syndrome coronavirus Current Visit: Yes Status: Acute Plan: Doing better continue to wean down on the oxygen I have advised her to sleep in prone position CRP has declined significantly
[2020-01-12] MEDS: ACETAMINOPHEN 325 MG TABLET PO PRN (16:07)
--- NOTE | 2020-01-12 16:19 | P.PN ---
Subjective Date of Service: 01/12/20 Chief Complaint: Schreiber virus pneumonia Subjective: Improving SHE IS STILL FATIUGED AND DYSPNEIC. SHE IS ON HIGH FLOW OXYGEN. SHE DENIES ANY CHEST PAIN. SHE SOUNDS A LOT BETTER TODAY, STRONGER, DOES NOT HAVE DYSPNEA WHILE SHE IS TALKING. Review of Systems General: Weakness, Malaise Respiratory: Shortness of Breath Physical Examination - Vital Signs Temperature: 98.7 F Blood Pressure: 161/86 Pulse: 86 Respirations: 20 Pulse Ox (%): 90 - Physical Exam Other Physical/Emotional Findings: SHE COULD NOT DO TELEHEALTH VISIT. TALKED TO HER. REVIEWED VITAL SIGNS. TALKED TO NURSING STAFF. OXYGEN SATURATION IS STILL LOW. HEART MONITORING- SINUS RHYTHM Assessment And Plan - Current Problems (Diagnosis) (1) Pneumonia due to severe acute respiratory syndrome coronavirus Current Visit: Yes Status: Acute Plan: IV STEROIDS INAHLER IN HOSPITAL NEBULIZER IS NOT POSSIBLE. VITAMINS SUPPORTIVE CARE DVT PROPHYLAXIS. STABLE. OXYGEN SUPPORT. DISCUSSED WITH DR. CAMPOS. HE IS NOT SEEING AN BENEFIT OF PLASMA, REMDESIVIR OR HCQ. TALKED TO DAUGHTER AND SON. THEY ARE AWARE. SHE IS GETTING HIGH FLOW OXYGEN PRN. SHE IS NOW ON 4 LT OXYGEN- ABOUT 92% CHECK LAB IN AM.
[2020-01-12 16:56] LABS: Absolute Lymphocytes (CBC) 0.6 K/uL (0.7-4.9); Hematocrit 37.2 % (36.0-45.0); Lymphocytes % 4.3 % (15.3-44.8); MPV 9.3 fL (7.6-11.3); RBC Red Blood Cell Count 4.44 M/uL (3.86-4.86)
[2020-01-12 17:08] LABS: Magnesium 2.1 mg/dL (1.8-2.4); Phosphorus 3.4 mg/dL (2.5-4.9); Potassium 4.1 mmol/L (3.5-5.1)
[2020-01-12] MEDS: ATORVASTATIN 40 MG TAB PO SCH (20:01)
[2020-01-12] MEDS: MELATONIN 3 MG TABLET PO SCH (20:01)
[2020-01-13 05:42] LABS: C-Reactive Protein 26.9 mg/L (<3.00); Ferritin 809.4 ng/mL (8-388); Magnesium 2.2 mg/dL (1.8-2.4); Phosphorus 3.7 mg/dL (2.5-4.9); Potassium 4.3 mmol/L (3.5-5.1)
[2020-01-13] MEDS: FAMOTIDINE 20 MG TAB PO SCH ×2 (07:27→20:14)
[2020-01-13] MEDS: SPIRONOLACTONE 25 MG TABLET PO SCH (07:27)
[2020-01-13] MEDS: LOSARTAN POTASSIUM 50 MG TABLET PO SCH (07:27)
[2020-01-13] MEDS: APIXABAN 5 MG TABLET PO SCH ×2 (07:28→20:15)
[2020-01-13] MEDS: METHYLPREDNISOLONE 125 MG INJ IV SCH ×2 (07:28→20:15)
[2020-01-13] MEDS: THIAMINE 200 MG/2 ML INJ IVP SCH (07:28)
[2020-01-13] MEDS: ASCORBIC ACID 500 MG TABLET PO SCH ×3 (07:28→20:14)
[2020-01-13] MEDS: FUROSEMIDE 20 MG/ 2ML VIAL IV SCH (07:28)
[2020-01-13] MEDS: VITAMIN D 1000 UNIT TAB PO SCH (07:30)
--- NOTE | 2020-01-13 09:07 | RAD REPORT ---
EXAM DESCRIPTION: RAD - Chest Single View - 01/13/2020 8:57 am CLINICAL HISTORY: COVID monitor, pneumonia COMPARISON: January 09 portable study TECHNIQUE: AP portable chest image was obtained 01/13/2020 8:57 am . FINDINGS: Bilateral pneumonia changes are still present. Patient has shown significant clearing of t he right lobe pneumonia and partial clearing of the right upper lobe and left midlung field pneumonia . No progressive lung process. No failure or volume overload. Heart and vasculature are normal. No me asurable pleural effusion and no pneumothorax. No acute bony abnormality seen. No acute aortic findin gs suspected. IMPRESSION: Partial clearing of bilateral pneumonia. No progressive process.
--- NOTE | 2020-01-13 11:36 | P.PN ---
Subjective Date of Service: 01/13/20 Chief Complaint: Schreiber virus pneumonia Patient is improving now on nasal cannula 4 L oxygen significant desat on mild exertion Review of Systems General: Weakness Respiratory: Shortness of Breath Physical Examination - Vital Signs Temperature: 97.6 F Blood Pressure: 165/84 Pulse: 69 Respirations: 17 Pulse Ox (%): 92 - Physical Exam Other Physical/Emotional Findings: SHE COULD NOT DO TELEHEALTH VISIT. TALKED TO HER. REVIEWED VITAL SIGNS. TALKED TO NURSING STAFF. OXYGEN SATURATION IS STILL LOW. HEART MONITORING- SINUS RHYTHM Assessment & Plan - Problems (Diagnosis) (1) Pneumonia due to severe acute respiratory syndrome coronavirus Current Visit: Yes Status: Acute Plan: Patient is improving plan to setup for home oxygen possible discharge tomorrow on 4 L of nasal cannula oxygen in addition to prednisone 20 mg twice a day for a week and then decrease to 10 mg twice a day for another week continue to sleep in prone or side position at home full anticoagulation with Eliquis and multi vitamin supplement
--- NOTE | 2020-01-13 14:32 | P.PN ---
Subjective Date of Service: 01/13/20 Chief Complaint: Schreiber virus pneumonia Subjective: Improving SHE IS STILL FATIUGED AND DYSPNEIC. SHE IS ON HIGH FLOW OXYGEN. SHE DENIES ANY CHEST PAIN. SHE SOUNDS A LOT BETTER TODAY, STRONGER, DOES NOT HAVE DYSPNEA WHILE SHE IS TALKING. HER OXYGENATION IS A LOT BETTER. SHE IS STRONGER. Physical Examination - Vital Signs Temperature: 97.6 F Blood Pressure: 165/84 Pulse: 69 Respirations: 17 Pulse Ox (%): 92 - Physical Exam General: Alert Other Physical/Emotional Findings: SHE COULD NOT DO TELEHEALTH VISIT. TALKED TO HER. REVIEWED VITAL SIGNS. TALKED TO NURSING STAFF. OXYGEN SATURATION IS STILL LOW. HEART MONITORING- SINUS RHYTHM Assessment And Plan - Current Problems (Diagnosis) (1) Pneumonia due to severe acute respiratory syndrome coronavirus Current Visit: Yes Status: Acute Plan: IV STEROIDS INAHLER IN HOSPITAL NEBULIZER IS NOT POSSIBLE. VITAMINS SUPPORTIVE CARE DVT PROPHYLAXIS. STABLE. OXYGEN SUPPORT. DISCUSSED WITH DR. CAMPOS. HE IS NOT SEEING AN BENEFIT OF PLASMA, REMDESIVIR OR HCQ. TALKED TO DAUGHTER AND SON. THEY ARE AWARE. SHE IS GETTING HIGH FLOW OXYGEN PRN. SHE IS NOW ON 4 LT OXYGEN- ABOUT 92% CHECK LAB IN AM. OXYGENATION IS HIGH 99% ON 4 LT NC . CXR SHOWS IMPROVED COVID PNEUMONIA.
[2020-01-13] MEDS: MELATONIN 3 MG TABLET PO SCH (20:15)
[2020-01-13] MEDS: ATORVASTATIN 40 MG TAB PO SCH (20:15)
[2020-01-14 05:39] LABS: C-Reactive Protein 16.9 mg/L (<3.00); Ferritin 567.8 ng/mL (8-388)
[2020-01-14 05:55] VITALS: BMI 29.6
[2020-01-14] MEDS: SPIRONOLACTONE 25 MG TABLET PO SCH (08:32)
[2020-01-14] MEDS: THIAMINE 200 MG/2 ML INJ IVP SCH (08:32)
[2020-01-14] MEDS: VITAMIN D 1000 UNIT TAB PO SCH (08:32)
[2020-01-14] MEDS: LOSARTAN POTASSIUM 50 MG TABLET PO SCH (08:32)
[2020-01-14] MEDS: FUROSEMIDE 20 MG/ 2ML VIAL IV SCH (08:32)
[2020-01-14] MEDS: METHYLPREDNISOLONE 125 MG INJ IV SCH (08:33)
[2020-01-14] MEDS: APIXABAN 5 MG TABLET PO SCH (08:33)
[2020-01-14] MEDS: ASCORBIC ACID 500 MG TABLET PO SCH (08:33)
[2020-01-14 08:51] VITALS: O2SAT 93
[2020-01-14] MEDS: FAMOTIDINE 20 MG TAB PO SCH (09:00)
[2020-01-14 12:46] VITALS: BP 131/81; TEMP 97.2
--- NOTE | 2020-01-17 13:21 | P.DS ---
Admission Date: 01/09/20 Discharge Date: 01/17/20 Disposition: ROUTINE DISCHARGE Discharge Condition: FAIR Reason for Admission: Schreiber virus pneumonia - Problems (1) Pneumonia due to severe acute respiratory syndrome coronavirus Status: Acute Brief History of Present Illness: MS KATZ IS A PATIENT WITH HTN AND HAS HAD COVID 19 INFECTION FOR LAST FEW DAYS. INITIALLY I TREATED THIS ON OUTPATIENT BASIS WITH STEROIDS, ZITHROMAX, NEBULIZER, ANTIOAGULATION. SHE COMPLAINED OF BEING DYSPNEIC FAMILY BROUGHT HER TO ER, HER OXYGEN AFTER AMBULATION STAYED ABOUT 92%. SHE WAS SENT HOME. I CALLED HER NIGHT BEFORE AND FAMILY SAID SHE FELT GREAT AFTER I GOT HER AN IV DOSE OF STEROID. SHE LAST NIGHT GOT WORSE ITH DYSPNA, OXYGEN DROPED TO 80-86% FAMILY BROUGHT HER BACK AND SHE IS NOW ADMITTED. SHE IS FEELING A LOT BETTER BUT HAS ACHES ALL OVER AND IS FATIGUED. HER CRP IS HIGH, HER WBC IS HIGH FROM STEORIDS. Hospital Course: HELEN IMPROVED AFTER MANY DAYS OF IV STEROIDS, HF OXYGEN, PRONE POSTIONING AND SUPPORTIVE CARE FOR COVID PNEUMONIA. SHE WILL GO HOME ON ORAL STEROIDS, ANTICOAGULATION FOR PROPHYLAXIS AND FU ON OP BASIS. Vital Signs/Physical Exam: Temp Pulse Resp BP Pulse Ox 97.2 F 118 H 22 H 131/81 89 L 01/14/20 12:00 01/14/20 12:00 01/14/20 12:00 01/14/20 12:00 01/14/20 12:00 Other Physical/Emotional Findings: SHE COULD NOT DO TELEHEALTH VISIT. TALKED TO HER. REVIEWED VITAL SIGNS. TALKED TO NURSING STAFF. OXYGEN SATURATION IS STILL LOW. HEART MONITORING- SINUS RHYTHM Laboratory Data at Discharge: WBC 12.8 K/uL (4.3-10.9) H D 01/12/20 16:36 Hgb 12.4 g/dL (12.0-15.0) 01/12/20 16:36 Hct 37.2 % (36.0-45.0) 01/12/20 16:36 Plt Count 252 K/uL (152-406) D 01/12/20 16:36 PT 10.7 SECONDS (9.5-12.5) 01/09/20 03:25 INR 0.91 01/09/20 03:25 Sodium 142 mmol/L (136-145) 01/13/20 04:58 Potassium 4.3 mmol/L (3.5-5.1) 01/13/20 04:58 BUN 46 mg/dL (7-18) H 01/13/20 04:58 Creatinine 1.09 mg/dL (0.55-1.3) 01/13/20 04:58 Glucose 156 mg/dL (74-106) H 01/13/20 04:58 Phosphorus 3.7 mg/dL (2.5-4.9) 01/13/20 04:58 Magnesium 2.2 mg/dL (1.8-2.4) 01/13/20 04:58 Total Bilirubin 0.4 mg/dL (0.2-1.0) 01/09/20 03:25 AST 40 U/L (15-37) H 01/09/20 03:25 ALT 40 U/L (12-78) 01/09/20 03:25 Alkaline Phosphatase 57 U/L (45-117) 01/09/20 03:25 Troponin I 0.02 ng/mL (0.0-0.045) 01/09/20 12:45 Home Medications: Famotidine [Pepcid*] 20 mg PO BID 01/09/20 Losartan Potassium 50 mg PO DAILY 01/09/20 Pravastatin Sodium [Pravachol] 20 mg PO BEDTIME 01/09/20 predniSONE [Deltasone] 20 mg PO BID #60 tab 01/14/20 New Medications: predniSONE [Deltasone] 20 mg PO BID #60 tab
== END 2020-01-14 14:00 | disposition home or self-care (01) | DRG 177 ==
LOC: ER 02:15 → ERHOLD 04:37 → 3RD-ICU 17:49
PROVIDERS: ADMIT Internal Medicine; ATTEND Internal Medicine
DX: U07.1 COVID-19 (principal); J12.89 Other viral pneumonia; J80 Acute respiratory distress syndrome; K21.9 Gastro-esophageal reflux disease without esophagitis; I10 Essential (primary) hypertension; Z88.1 Allergy status to other antibiotic agents; Z79.899 Other long term (current) drug therapy; Z88.0 Allergy status to penicillin
CPT/HCPCS: 36415; 71045; 71275; 80048; 80076; 81003; 82728; 83605; 83735; 83880; 84100; 84145; 84484; 85025; 85379; 85610; 86140; 87040; 93005; 93970; 94760; 96361; 96365; 96372; 96374; 96375; 99284; 99285; J0456; J0696; J1100; J1650; J1940; J2270; J2405; J2930; J3411; J7030; J7050; Q9967

== ENCOUNTER 2021-03-28 08:32 | Inpatient (IN) | payer OTHER, MEDICARE ==
--- OUTSIDE RECORDS SUMMARY | 2021-03-28 08:35 | XMS REPORT | Continuity of Care Document ---
:1945 Author Organization [facility] t Address [address] [place] [address] [address]. [address] [place] [address] Care Team Providers Name Role Phone Nasra Posadas Attending Clinician Doctor Unassigned, Name Attending Clinician Unavailable Payers Payer Name Policy Type Policy Number Effective Date Expiration Date S s[place] MEDICARE PART A \T\ [id number] 2009 B 00:00:00 [facility] [id number] 2019 MEDICARE SUPPLEMENT 00:00:00 Problems This patient has no known problems. Allergies, Adverse Reactions, Alerts Allergy Allergy Status Severity Reaction(s) Onset Inactive Treating Comm ents Source Name Type Date Date Clinician [facility] DRUG Active Swelling 2020-0 [facility]iver s [facility] 1-04 ity of 00:00: [place] 00 [facility] SULFA Drug Active Swelling 2020-0 Univers (SULFONA Class 1-04 ity of MIDE 00:00: [place] ANTIBIOT 00 Medical ICS) Branch Medications This patient has no known medications. Procedures This patient has no known procedures. Encounters Start End Encounter Admission Attending Care Care Encounter Source Date/Time Date/Time Type Type Clinicians Facility Department ID 2020-01-03 2020-01-03 Emergency Natasha Chawla [facility] [id number] 13:32:00 17:51:00 Nasra Plummer [id number] [place] [id number] [place] [id number] 2020-01-03 2020-01-03 Emergency X [facility] ERT [id number] [facility] 13:22:00 13:22:00 ity of [facility] 2020-01-03 2020-01-03 Orders Doctor RACHEL [id number] 00:00:00 00:00:00 Only Unassigned, JUAN MANUEL [id number] [place] [facility] [id number] Results This patient has no known results.
[2021-03-28 09:16] LABS: Absolute Lymphocytes (CBC) 2.1 K/uL (0.7-4.9); Hematocrit 36.7 % (36.0-45.0); Lymphocytes % 19.5 % (15.3-44.8); MPV 8.4 fL (7.6-11.3); RBC Red Blood Cell Count 4.37 M/uL (3.86-4.86)
[2021-03-28 09:39] LABS: Protime INR 0.98
[2021-03-28 09:46] LABS: BUN Blood Urea Nitrogen 28 mg/dL (7-18); Bicarbonate 24 mmol/L (21-32); Glucose Level 97 mg/dL (74-106); Sodium Level 144 mmol/L (136-145); Troponin (Emerg Dept Use Only) < 0.02 ng/mL (0.0-0.045)
--- NOTE | 2021-03-28 10:16 | RAD REPORT ---
EXAM DESCRIPTION: US - Extrem Venous W Compress Mg - 03/28/2021 9:47 am CLINICAL HISTORY: elevated d-dimer, history of COVID related pulmonary embolism, history of left pop liteal vein DVT in 2003 COMPARISON: None. TECHNIQUE: Real-time sonographic evaluation of the bilateral lower extremity common femoral, superfi cial femoral, popliteal and posterior tibial veins was performed. FINDINGS: Normal compressibility, flow augmentation, phasic flow and spontaneous flow are identified in the left and right lower extremity common femoral, superficial femoral, popliteal and posterior t ibial veins with the exception of the left popliteal vein. Hyperechoic material is seen along the arianna p polyp popliteal vein. This only partially narrows the lumen. This is likely old thrombus in scarrin g related to the remote DVT. . No intraluminal filling defects seen. IMPRESSION: No acute deep venous thrombosis in either lower extremity. Old thrombus or scarring remains in the left popliteal vein.
--- NOTE | 2021-03-28 11:05 | RAD REPORT ---
EXAM DESCRIPTION: CT - Chest For Pe Angio - 03/28/2021 10:44 am CLINICAL HISTORY: elevated d-dimer COMPARISON: Chest Angio dated 03/17/2020 TECHNIQUE: Dynamically enhanced 3 mm thick images of the chest were obtained during administration o f approximately 150mL Isovue 370 IV contrast. Coronal and oblique MIP reconstruction images were gene rated and reviewed. Exam utilizes a protocol to evaluate the pulmonary arterial tree. All CT scans are performed using dose optimization technique as appropriate and may include automated exposure control or mA/KV adjustment according to patient size. FINDINGS: Partially occlusive thrombus is present at the right main pulmonary artery bifurcation int o the right middle lobe and right lower lobe branches. Large thrombus is present filling the majority of the right lower lobe pulmonary artery with extension into several segmental branches. No right up per lobe thrombus identified. Left upper lobe is clear. There is thrombus present in a anterior base segmental and subsegmental branch of the left lower lobe. No saddle emboli present. The aorta as imaged shows no acute or suspicious finding. No pericardial thickening or effusion. In the right posterior gutter a 2.2 x 1.3 centimeter oval pleural abutting masses present. Calcificat ion is present between the mass in the pleura, possibly a pleural calcification. Minimal right-sided pleural effusion is present. Biapical scarring changes are present similar to the comparison. Fibroti c lung changes are present. No pneumothorax. All No mediastinal or hilar suspicious masses. No chest wall masses or abnormal axillary lymphadenopathy. No cardiomegaly or pericardial effusion. No acute bone finding. T10 vertebral body hemangiomas present hemangioma changes are present in T1 ri ght lateral margin extending into the pedicle. IMPRESSION: Multiple segmental and subsegmental branch pulmonary emboli are present involving right middle lobe, right lower lobe and left lower lobe. No saddle embolus. Emboli are favored to be new ra ther than remnants from the 2020 embolic episode. A 2.2 centimeter rounded mass density is present in the posterior gutter on the right new from prior imaging. A true mass the lung parenchyma is possible. Rounded atelectasis is possible. Pulmonary hemo rrhage is a differential consideration; however, there is no definitive embolus in a branch extending to this region. Re-evaluation CT imaging in 3 months would be recommended to allow resolution of any acute lung paren chymal process. No other significant or suspicious findings.
--- NOTE | 2021-03-28 11:25 | ER ---
Nurse's Notes [facility] Name: Sravanthi Mendoza Age: 76 yrs Sex: Female : 1945 Arrival Date: 03/28/2021 Time: 08:35 Bed 24 Private MD: Irwin Tyson V Diagnosis: Pulmonary embolism without acute cor pulmonale-Multiple, bilateral Presentation: 03/28 08:39 Chief complaint: Patient states: "I had blood work done on Monday and they called me ss this morning and told me to come in because I have a history of blood clots. I've had some shortness of breath. I still have after effects from when I had COVID last year.". Coronavirus screen: Client denies travel out of the [place] in the last 14 days. Ebola Screen: Patient denies exposure to infectious person. Patient denies travel to an Ebola-affected area in the 21 days before illness onset. Initial Sepsis Screen: Does the patient meet any 2 criteria? No. Patient's initial sepsis screen is negative. Does the patient have a suspected source of infection? No. Patient's initial sepsis screen is negative. Risk Assessment: Do you want to hurt yourself or someone else? Patient reports no desire to harm self or others. Onset of symptoms is unknown. 08:39 Method Of Arrival: Ambulatory ss 08:39 Acuity: AIDEE 3 ss Historical: - Allergies: 08:42 PENICILLINS; ss 08:42 Sulfa (Sulfonamide Antibiotics); ss - PMHx: 08:42 GERD; High Cholesterol; Hypertension; vit d deficiency; ss - Immunization history:: Client reports receiving the 2nd dose of the Covid vaccine. - Social history:: Smoking status: Patient denies any tobacco usage or history of. - Family history:: not pertinent. - Hospitalizations: : No recent hospitalization is reported. Screenin:38 Abuse screen: Denies threats or abuse. Nutritional screening: No deficits noted. as6 Tuberculosis screening: No symptoms or risk factors identified. Fall Risk None identified. Assessment: 09:00 General: Appears in no apparent distress. comfortable, Behavior is calm, cooperative. as6 Pain: Denies pain. Neuro: Level of Consciousness is awake, alert, obeys commands, Oriented to person, place, time, situation. Cardiovascular: Capillary refill < 3 seconds Patient's skin is warm and dry. Respiratory: Airway is patent Trachea midline Respiratory effort is even, unlabored, Respiratory pattern is regular, symmetrical. GI:. Derm: Skin is intact, is healthy with good turgor. 10:55 Reassessment: Patient and/or family updated on plan of care and expected duration. Pain as6 level reassessed. Patient is alert, oriented x 3, equal unlabored respirations, skin warm/dry/pink. 13:31 Reassessment: Patient and/or family updated on plan of care and expected duration. Pain as6 level reassessed. Patient is alert, oriented x 3, equal unlabored respirations, skin warm/dry/pink. family at bedside, pt and family voices wanting to be transferred, provider notified, Dr. Gimenez at bedside speaking with pt and family. 14:27 Reassessment: Patient and/or family updated on plan of care and expected duration. Pain as6 level reassessed. Patient is alert, oriented x 3, equal unlabored respirations, skin warm/dry/pink. Vital Signs: 08:39 BP 148 / 67; Pulse 66; Resp 16; Temp 98.0(TE); Pulse Ox 100% on R/A; Weight 78.47 kg; ss Height 5 ft. 7 in. (170.18 cm); Pain 0/10; 10:54 BP 183 / 65; Pulse 72; Resp 18 S; Pulse Ox 100% on R/A; as6 13:30 BP 170 / 70; Pulse 63; Resp 18 S; Pulse Ox 100% on R/A; as6 14:26 BP 156 / 69; Pulse 64; Resp 18 S; Pulse Ox 100% on R/A; as6 08:39 Body Mass Index 27.10 (78.47 kg, 170.18 cm) ED Course: 08:35 Patient arrived in ED. mr 08:35 Irwin Tyson MD is Private Physician. mr 08:42 Triage completed. ss 08:42 Arm band placed on right wrist. ss 08:44 Ty Gimenez MD is Attending Physician. rn 08:50 Kenneth Cazares RN is Primary Nurse. as6 09:32 CT Chest For PE Angio In Process Unspecified. EDMS 09:38 Placed in gown. Bed in low position. Call light in reach. Side rails up X 1. Pulse ox as6 on. NIBP on. 09:47 Extrem Venous W Compression Mg US In Process Unspecified. EDMS 10:38 Inserted saline lock: 22 gauge in left antecubital area, using aseptic technique. Blood as6 collected. Missed attempt(s): 22 gauge in right antecubital area. Bleeding controlled, band aid applied, catheter tip intact. 11:24 Irwin Tyson MD is Hospitalizing Provider. rn 15:22 COVID-19 (Coronavirus) Document "Date of Onset" if Symptomatic Sent. 5 15:22 CORONAVIRUS Sent. 5 Administered Medications: 12:21 Drug: Lovenox (enoxaparin) 1 mg/kg Route: Sub-Q; Site: right lower abdomen; as6 13:00 Follow up: Response: No adverse reaction as6 12:21 Drug: Lovenox (enoxaparin) 1 mg/kg Route: Sub-Q; Site: right lower abdomen; as6 Outcome: 11:24 Decision to Hospitalize by Provider. rn 20:08 Patient left the ED. 1 Signatures: Dispatcher [employer] GUEROCT Nadira Razo Roman, MD MD rn Smirch, Shelby, RN RN ss Pena, Laura, RN RN 1 Audrey Lacey [facility] Kenneth Cazares RN RN as6
--- NOTE | 2021-03-28 11:25 | EDPHYS ---
Physician Documentation [facility] Name: Sravanthi Mendoza Age: 76 yrs Sex: Female : 1945 Arrival Date: 03/28/2021 Time: 08:35 Bed 24 Private MD: Irwin Tyson V ED Physician Ty Gimenez HPI: 03/28 08:54 This 76 yrs old Female presents to ER via Ambulatory with complaints of rn Abnormal Lab Results. 08:54 Patient reports sent here by Dr. Tyson for abnormal blood tests. States told needs to rn be tested for blood clot. Has a history of blood clot but no longer takes blood thinners. Reports had Covid 1 year ago and still feels like has problems because of it. Denies any new shortness of breath. No chest pain. No leg swelling.. Onset: The symptoms/episode began/occurred at an unknown time. Severity of symptoms: At their worst the symptoms were mild in the emergency department the symptoms are unchanged. The patient has experienced similar episodes in the past, chronically. The patient has been recently seen by a physician:. Historical: - Allergies: 08:42 PENICILLINS; ss 08:42 Sulfa (Sulfonamide Antibiotics); ss - PMHx: 08:42 GERD; High Cholesterol; Hypertension; vit d deficiency; ss - Immunization history:: Client reports receiving the 2nd dose of the Covid vaccine. - Social history:: Smoking status: Patient denies any tobacco usage or history of. - Family history:: not pertinent. - Hospitalizations: : No recent hospitalization is reported. ROS: 08:54 Constitutional: Negative for fever, chills, and weight loss, Eyes: Negative for injury, rn pain, redness, and discharge, ENT: Negative for injury, pain, and discharge, Neck: Negative for injury, pain, and swelling, Cardiovascular: Negative for chest pain, palpitations, and edema, Respiratory: Negative for cough, wheezing, and pleuritic chest pain, Abdomen/GI: Negative for abdominal pain, nausea, vomiting, diarrhea, and constipation, Back: Negative for injury and pain, MS/Extremity: Negative for injury and deformity, Skin: Negative for injury, rash, and discoloration, Neuro: Negative for headache, weakness, numbness, tingling, and seizure. 08:54 All other systems are negative. rn Exam: 08:54 Constitutional: This is a well developed, well nourished patient who is awake, alert, rn and in no acute distress. Head/Face: Normocephalic, atraumatic. Eyes: Periorbital areas with no swelling, redness, or edema. Cardiovascular: Regular rate and rhythm. No pulse deficits. Respiratory: Speaking full sentences, no increased work of breathing, no retractions or nasal flaring. Abdomen/GI: Soft, non-tender Skin: Warm, dry MS/ Extremity: Pulses equal, no cyanosis. Neurovascular intact. Full, normal range of motion. Equal circumference. Neuro: Awake and alert, GCS 15, oriented to person, place, time, and situation. Cranial nerves II-XII grossly intact. Motor strength 5/5 in all extremities. Sensory grossly intact. Vital Signs: 08:39 BP 148 / 67; Pulse 66; Resp 16; Temp 98.0(TE); Pulse Ox 100% on R/A; Weight 78.47 kg; ss Height 5 ft. 7 in. (170.18 cm); Pain 0/10; 10:54 BP 183 / 65; Pulse 72; Resp 18 S; Pulse Ox 100% on R/A; as6 13:30 BP 170 / 70; Pulse 63; Resp 18 S; Pulse Ox 100% on R/A; as6 14:26 BP 156 / 69; Pulse 64; Resp 18 S; Pulse Ox 100% on R/A; as6 08:39 Body Mass Index 27.10 (78.47 kg, 170.18 cm) ss MDM: 08:44 Patient medically screened. rn 11:21 Differential Diagnosis DVT, PE, lung mass, infection. Data reviewed: vital signs, rn nurses notes, lab test result(s), EKG, radiologic studies, CT scan, ultrasound, and as a result, I will admit patient. Data interpreted: alarm security or surveillance monitor: rate is 72 beats/min, rhythm is normal sinus rhythm, regular, with no ectopy, Interpretation: normal rate, normal rhythm, Pulse oximetry: on room air is 100 %. Interpretation: normal. Counseling: I had a detailed discussion with the patient and/or guardian regarding: the historical points, exam findings, and any diagnostic results supporting the discharge/admit diagnosis, lab results, radiology results, the need for further work-up and treatment in the hospital. Response to treatment: There is no appreciated change of the patient's symptoms at this time, and as a result, I will admit patient. Admission orders: after a detailed discussion of the patient's condition and case, the admit orders are written by me. ED course: Consulted with Dr. Dale, as well as Dr. Tyson, will admit on full dose Lovenox for bilateral and multiple PE. 03/28 08:44 Order name: CBC with Diff; Complete Time: 09:49 rn 03/28 08:44 Order name: Basic Metabolic Panel; Complete Time: 11:00 rn 03/28 08:44 Order name: Protime (+inr); Complete Time: 09:49 rn 03/28 08:44 Order name: Ptt, Activated; Complete Time: :49 rn 03/28 08:44 Order name: Troponin (emerg Dept Use Only); Complete Time: 11:00 rn 03/28 08:44 Order name: IV Start; Complete Time: 09:17 rn 03/28 08:44 Order name: CT Chest For PE Angio; Complete Time: 11:08 rn 03/28 08:44 Order name: Extrem Venous W Compression Mg US; Complete Time: 11:00 rn 03/28 08:44 Order name: EKG; Complete Time: 08:45 rn 03/28 14:17 Order name: COVID-19 (Coronavirus) Document "Date of Onset" if Symptomatic as6 03/28 14:17 Order name: CORONAVIRUS EDDC 03/28 15:23 Order name: SARS-COV-2 RT PCR EDDC 03/28 08:44 Order name: EKG - Nurse/Tech; Complete Time: 10:13 rn Administered Medications: 12:21 Drug: Lovenox (enoxaparin) 1 mg/kg Route: Sub-Q; Site: right lower abdomen; as6 13:00 Follow up: Response: No adverse reaction as6 12:21 Drug: Lovenox (enoxaparin) 1 mg/kg Route: Sub-Q; Site: right lower abdomen; as6 Disposition Summary: 03/28/21 11:24 Hospitalization Ordered Hospitalization Status: Inpatient Admission rn Provider: Irwin Tyson rn Condition: Stable rn Problem: new rn Symptoms: are unchanged rn Bed/Room Type: Standard rn Location: Telemetry/MedSurg (Inpatient)(03/28/21 18:35) bd Room Assignment: 209(03/28/21 18:35) bd Diagnosis - Pulmonary embolism without acute cor pulmonale - Multiple, bilateral rn Forms: - Medication Reconciliation Form rn - SBAR form rn Signatures: Dispatcher [employer] EDMS Jennifer Jazmyne Ty Amaya MD MD rn Calderon, Audri, RN RN aa5 Marce Richmond RN RN ss Slawson, Ashby, RN RN as6 Corrections: (The following items were deleted from the chart) 15:45 11:24 Telemetry/MedSurg (Inpatient) rn aa5 15:45 11:24 rn aa5 18:35 15:45 [facility] ER HOLD aa5 bd 18:35 15:45 ERHOLD- aa5 bd
[2021-03-28] MEDS ORDERED: ENOXAPARIN 80 MG/0.8 ML SQ ONE (12:16)
[2021-03-28] MEDS ORDERED: ACETAMINOPHEN 500 MG TAB PO PRN (15:53)
[2021-03-28] MEDS ORDERED: ONDANSETRON 4 MG/2 ML VIAL IV PRN (15:53)
--- NOTE | 2021-03-28 16:39 | P.HP ---
Certification for Inpatient Patient admitted to: Observation With expected LOS: <2 Midnights Practitioner: I am a practitioner with admitting privileges, knowledge of patient current condition, hospital course, and medical plan of care. Services: Services provided to patient in accordance with Admission requirements found in Title 42 Section 412.3 of the Code of Federal Regulations Patient History Date of Service: 03/28/21 Reason for admission: SHORT OF BREATH History of Present Illness: HELEN HAS HAD COVID PNEUMONIA FOLLOWED BY PE LAST YEAR. SHE COMES WITH DYPSNEA LAST WEEK TO MY OFFICE. SHE LOOKED COMFORTABLE AND HAD NORMAL OXYGEN SATURATION AT THE TIME OF VISIT. I ORDERED LAB INCLUDING D DIMER AND IT CAME HIGH AT 13.7. I ADVISED HER TO COME TO ER THIS AM. I CALLED DR. THOMAS TO CHECK FOR PE. SHE DOES HAVE BILATERAL SUBSEGMENTAL PE. SHE IS ON LOVENOX SC NOW. SHE ALSO HAS POSTEROIOR PLEURAL BASED LUNG MASS ABOUT 1.3-2.2 CM. THIS IS NEW COMPARED TO LAST YEAR. Allergies Penicillins Adverse Reaction (Verified 01/09/20 04:59) Anaphylaxis Sulfa (Sulfonamide Antibiotics) Adverse Reaction (Verified 01/09/20 04:59) Anaphylaxis Home medications list reviewed: Yes Home Medications: Pravastatin Sodium [Pravachol] 20 mg PO BEDTIME 01/09/20 Ascorbic Acid [Vitamin C] 1,000 mg PO DAILY 03/28/21 Aspirin 81 mg PO DAILY 03/28/21 Fluticasone/Vilanterol [Breo Ellipta 100-25 Mcg INH] 1 puff IH DAILY 03/28/21 Omeprazole 20 mg PO DAILY 03/28/21 Spironolactone [Aldactone] 25 mg PO DAILY 03/28/21 bisoproloL fumarate [Zebeta] 5 mg PO DAILY 03/28/21 - Past Medical/Surgical History Diabetic: No -: GERD -: High Cholesterol -: HTN Review of Systems 10-point ROS is otherwise unremarkable Respiratory: Shortness of Breath Physical Examination - Physical Exam General: Oriented x3, Moderate distress HEENT: Atraumatic, PERRLA, Mucous membr. moist/pink, EOMI, Sclerae nonicteric Neck: Supple, 2+ carotid pulse no bruit, No LAD, Without JVD or thyroid abnormality Respiratory: Clear to auscultation bilaterally, Normal air movement Cardiovascular: Regular rate/rhythm, Normal S1 S2 Gastrointestinal: Normal bowel sounds, No tenderness Musculoskeletal: No tenderness Integumentary: No rashes Neurological: Normal gait, Normal speech, Normal strength at 5/5 x4 extr, Normal tone, Normal affect Lymphatics: No axilla or inguinal lymphadenopathy - Studies Laboratory Data (last 24 hrs) 03/28/21 09:07: PT 11.3, INR 0.98, APTT 30.3 03/28/21 09:07: Sodium 144, Potassium 4.0, BUN 28 H, Creatinine 1.13, Glucose 97 03/28/21 09:07: WBC 10.70, Hgb 11.9 L, Hct 36.7, Plt Count 179 Assessment and Plan - Problems (Diagnosis) (1) Pulmonary embolism Current Visit: Yes Status: Acute Plan: LOVENOX SC BID. SHE IS CLINICALLY STABLE. SHE CAN GO HOME ON XARELTO OR ELIUQIS FROM AM OR DAY AFTER. SHE WILL BE ON LIFETIME ANTICOAGULATION NOW WITH RECURRENT UNPROVOKED PE. LUNG TUMOR MAY HAVE INCREASED THROMBOGENESIS. Qualifiers: Pulmonary embolism type: multiple subsegmental (without acute cor pulmonale) Qualified Code(s): I26.94 - Multiple subsegmental pulmonary emboli without acute cor pulmonale (2) Lung mass Current Visit: Yes Status: Suspected Plan: NEW MASS COMPARED TO A YEAR AGO. 1.3/2.2 CM I SENT REPORT TO DR. PENALOZA AND HE WILL BE ABLE TO SEE HER AFTER THANKSGIVING. FAMILY KNOWS SHE WILL HAVE TO HOLD BLOOD THINNER FOR A DAY TO GET BIOPSY DONE. - Advance Directives Does patient have a Living Will: No Does patient have a Durable POA for Healthcare: No
[2021-03-28 16:50] VITALS: BMI 27.1
[2021-03-28] MEDS ORDERED: ATORVASTATIN 10 MG TAB PO SCH (21:00)
[2021-03-29 04:19] VITALS: BP 144/71
[2021-03-29] MEDS ORDERED: PANTOPRAZOLE 40MG TABLET PO SCH (06:30)
[2021-03-29] MEDS ORDERED: DULERA 100/5 (MOMETASONE/FORMOTEROL) INHALER IH SCH (09:00)
[2021-03-29] MEDS ORDERED: SPIRONOLACTONE 25 MG TABLET PO SCH (09:00)
[2021-03-29] MEDS ORDERED: BISOPROLOL 5 MG TABLET PO SCH (09:00)
[2021-03-29 10:04] LABS: Absolute Lymphocytes (CBC) 1.9 K/uL (0.7-4.9); Basophils % 1.1 % (0-1.3); Hematocrit 36.8 % (36.0-45.0); Lymphocytes % 20.8 % (15.3-44.8); RBC Red Blood Cell Count 4.39 M/uL (3.86-4.86)
[2021-03-29 10:09] VITALS: O2SAT 95
[2021-03-29 10:09] LABS: Potassium 4.1 mmol/L (3.5-5.1)
[2021-03-29 10:53] VITALS: TEMP 97.7
[2021-03-29] MEDS ORDERED: ENOXAPARIN 80 MG/0.8 ML SQ SCH (17:00)
--- NOTE | 2021-03-30 08:41 | P.CNS ---
Date of Consult: 03/30/21 Reason for Consult: PE Chief Complaint: SHORT OF BREATH History of Present Illness: PT is 76 yrs of age HX of COVID and Tx for PE for 6 months and vaishali on aspirin AW bialteral PE/ No acute onset Exp SOB No LE edema. Doing well no complaints Allergies Penicillins Adverse Reaction (Verified 01/09/20 04:59) Anaphylaxis Sulfa (Sulfonamide Antibiotics) Adverse Reaction (Verified 01/09/20 04:59) Anaphylaxis Home Medications: Pravastatin Sodium [Pravachol] 20 mg PO BEDTIME 01/09/20 Ascorbic Acid [Vitamin C] 1,000 mg PO DAILY 03/28/21 Fluticasone/Vilanterol [Breo Ellipta 100-25 Mcg INH] 1 puff IH DAILY 03/28/21 Omeprazole 20 mg PO DAILY 03/28/21 Spironolactone [Aldactone*] 25 mg PO DAILY 03/28/21 bisoproloL fumarate [Zebeta*] 5 mg PO DAILY 03/28/21 - Past Medical/Surgical History Diabetic: No -: GERD -: High Cholesterol -: HTN -: COVID -: DVT -: Hystrectomy -: Cholesystectomy - Social History Alcohol use: Yes CD- Drugs: No Caffeine use: Yes Place of Residence: Home Review of Systems 10-point ROS is otherwise unremarkable General: Weakness Respiratory: Shortness of Breath Physical Examination Temp Pulse Resp BP Pulse Ox 97.7 F 59 16 144/71 H 96 03/29/21 08:00 03/29/21 09:32 03/29/21 08:00 03/29/21 09:32 03/29/21 08:00 General: Alert, Oriented x3 Neck: Supple Respiratory: Clear to auscultation bilaterally Cardiovascular: No edema, Normal S1 S2 Gastrointestinal: Normal bowel sounds, Soft and benign Musculoskeletal: No clubbing, No swelling Neurological: Normal speech, Normal strength at 5/5 x4 extr - Problems (1) Pulmonary embolism Status: Acute Plan: PT is 76 yrs of age aw PE, Prev HXof DVT [presumed sec to COVID. PT was on aspirin. Agree with lifelong anticoagulation/ PT is on RA stable for discharge Qualifiers: Pulmonary embolism type: multiple subsegmental (without acute cor pulmonale) Qualified Code(s): I26.94 - Multiple subsegmental pulmonary emboli without acute cor pulmonale (2) Solitary pulmonary nodule Status: Acute Plan: 202 cm SPN R Post gutter. low risk for cancer Never smoked, ? PE Repeat Ct in 1 month/ labs rev
--- NOTE | 2021-03-30 21:28 | P.DS ---
Admission Date: 03/28/21 Discharge Date: 03/30/21 Disposition: ROUTINE DISCHARGE Discharge Condition: FAIR Reason for Admission: SHORT OF BREATH - Problems (1) Pulmonary embolism Status: Acute Qualifiers: Pulmonary embolism type: multiple subsegmental (without acute cor pulmonale) Qualified Code(s): I26.94 - Multiple subsegmental pulmonary emboli without acute cor pulmonale (2) Lung mass Status: Suspected Brief History of Present Illness: HELEN HAS HAD COVID PNEUMONIA FOLLOWED BY PE LAST YEAR. SHE COMES WITH DYPSNEA LAST WEEK TO MY OFFICE. SHE LOOKED COMFORTABLE AND HAD NORMAL OXYGEN SATURATION AT THE TIME OF VISIT. I ORDERED LAB INCLUDING D DIMER AND IT CAME HIGH AT 13.7. I ADVISED HER TO COME TO ER THIS AM. I CALLED DR. THOMAS TO CHECK FOR PE. SHE DOES HAVE BILATERAL SUBSEGMENTAL PE. SHE IS ON LOVENOX SC NOW. SHE ALSO HAS POSTEROIOR PLEURAL BASED LUNG MASS ABOUT 1.3-2.2 CM. THIS IS NEW COMPARED TO LAST YEAR. Hospital Course: HELEN IS HAVING RECURRENT PE AND ALSO MAY HAVE A SUBPLEURAL MASS OR INFARCT. SHE WILL FU WITH DR CAMPOS. SHE WILL BE ON LIFETIME ANTICOAGUALATION NOW. SHE IS ON LOADING DOSE OF XARELTO FOR ABOUT 3 WEEKS AND THEN WILL BE ON 20 MG DAILY. Vital Signs/Physical Exam: Temp Pulse Resp BP Pulse Ox 97.7 F 59 16 144/71 H 96 03/29/21 08:00 03/29/21 09:32 03/29/21 08:00 03/29/21 09:32 03/29/21 08:00 Laboratory Data at Discharge: WBC 9.00 K/uL (4.3-10.9) D 03/29/21 09:34 Hgb 12.2 g/dL (12.0-15.0) 03/29/21 09:34 Hct 36.8 % (36.0-45.0) 03/29/21 09:34 Plt Count 191 K/uL (152-406) 03/29/21 09:34 PT 11.3 SECONDS (9.5-12.5) 03/28/21 09:07 INR 0.98 03/28/21 09:07 APTT 30.3 SECONDS (24.3-36.9) 03/28/21 09:07 Sodium 142 mmol/L (136-145) 03/29/21 09:34 Potassium 4.1 mmol/L (3.5-5.1) 03/29/21 09:34 BUN 22 mg/dL (7-18) H 03/29/21 09:34 Creatinine 1.14 mg/dL (0.55-1.3) 03/29/21 09:34 Glucose 103 mg/dL (74-106) 03/29/21 09:34 Home Medications: Pravastatin Sodium [Pravachol] 20 mg PO BEDTIME 01/09/20 Ascorbic Acid [Vitamin C] 1,000 mg PO DAILY 03/28/21 Fluticasone/Vilanterol [Breo Ellipta 100-25 Mcg INH] 1 puff IH DAILY 03/28/21 Omeprazole 20 mg PO DAILY 03/28/21 Spironolactone [Aldactone*] 25 mg PO DAILY 03/28/21 bisoproloL fumarate [Zebeta*] 5 mg PO DAILY 03/28/21 Followup: Irwin Tyson MD [Primary Care Provider] - (Follow up as directed)
--- NOTE | 2021-03-31 08:12 | EKG ---
Test Date: 2021-03-28 Test Time: 10:07:32 Fertilizing Machine Operator: MEASUREMENT RESULTS: Intervals: Rate: 61 NC: 138 QRSD: 72 QT: 408 QTc: 410 [place]: P: 47 NC: 138 QRS: 24 T: 35 INTERPRETIVE STATEMENTS: Normal sinus rhythm ST abnormality, possible digitalis effect Abnormal ECG Compared to ECG 01/09/2020 03:19:40 No significant changes Electronically Signed On 03-31-21 08:04:17 SLUDGE CONTROL OPERATOR by Cheng Schneider
[2021-04-02 14:45] LABS: Protein C Antigen 119 % (70-140)
== END 2021-03-29 11:44 | disposition home or self-care (01) | DRG 176 ==
LOC: ER 08:32 → ERHOLD 14:21 → 2ND 19:49
PROVIDERS: ADMIT Internal Medicine; ATTEND Internal Medicine
DX: I26.99 Other pulmonary embolism without acute cor pulmonale (principal); R91.8 Other nonspecific abnormal finding of lung field; K21.9 Gastro-esophageal reflux disease without esophagitis; I10 Essential (primary) hypertension; Z20.822 Contact with and (suspected) exposure to COVID-19; Z86.16 Personal history of COVID-19; Z88.0 Allergy status to penicillin; Z88.2 Allergy status to sulfonamides
CPT/HCPCS: 36415; 71275; 80048; 81241; 82565; 83090; 84484; 85025; 85300; 85302; 85305; 85306; 85610; 85730; 86147; 93005; 93970; 96372; 99284; J7606; Q9967; U0003

== ENCOUNTER 2022-01-13 22:10 | Emergency (ER) | payer OTHER, MEDICARE ==
--- OUTSIDE RECORDS SUMMARY | 2022-01-13 22:13 | XMS REPORT | Continuity of Care Document ---
:1945 Author Organization [facility] t Address [address] [place] [address] Care Team Providers Name Role Phone LUIZA DWYER Primary Care Physician Unavailable Nisha Last Attending Clinician Natasha Posadas Attending Clinician Doctor Unassigned, [place] Attending Clinician Unavailable ЮЛИЯ OCONNELL Attending Clinician Unavailable ЮЛИЯ OCONNELL Admitting Clinician Unavailable Payers Payer Name Policy Type Policy Number Effective Date Expiration Date S s[place] MEDICARE PART A \T\ [id number] 2009 B 00:00:00 [facility] [id number] 2019 MEDICARE SUPPLEMENT 00:00:00 Problems Condition Condition Condition Status Onset Resolution Last Treating Co mments Source Name Details Category Date Date Treatment Clinician Date Urinary Urinary Problem Resolve 2020-10-21 Memoria tract tract d 22:03:57 l 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) (disorder) Resolved Problem 10/21/2020 [facility] Hyperchole Hyperchol Problem Resolve 2020-10-21 Memoria sterolemia esterolemi d 22:03:57 l (disorder) a Nahum n (disorder) Resolved Problem 10/21/2020 [facility] Group Hypertensi Hypertens Problem Resolve 2020-10-21 Memoria ve migel d 22:03:57 l disorder, disorder, Herm sachi systemic systemic arterial arterial (disorder) (disorder) Resolved Problem 10/21/2020 [facility] Allergies, Adverse Reactions, Alerts Allergy Allergy Status Severity Reaction(s) Onset Inactive Treating Comm ents Source Name Type Date Date Clinician PENICILL DRUG Active Swelling Univer s IN INGREDI 1-04 ity of 00:00: [place] 00 [facility] SULFA Drug Active Swelling 0 Univers (SULFONA Class 1-04 ity of MIDE 00:00: [place] ANTIBIOT 00 Medical ICS) Branch penicill penicill Active Memori a ins ins l [place] sulfa sulfa Active [facility] drugs drugs l [place] Social History Smoking Status Start Date Stop Date Source Social History 2020-07-06 21:34:40 2020-07-06 21:34:40 [facility] Medications Ordered Filled Start Stop Current Ordering Indication Dosage Frequency Signature Comments Components Source Medication Medication Date Date Medication? Clinician (SIG) Name Name pravastatin Yes 0 Memori a 20 mg oral 3-01 Refill(s) l tablet 21:36: bisoprolol Yes 0 Memoria 5 mg oral 3-01 Refill(s) l tablet 21:36: pravastatin 0 Yes 0 Memori a 20 mg oral 3-01 Refill(s) l tablet 21:36: bisoprolol 0 Yes 0 [facility] 5 mg oral 3-01 Refill(s) l tablet 21:36: losartan 50 0 Yes 0 Memori a mg oral 3-01 Refill(s) l tablet 21:36: losartan 50 0 Yes 0 Memori a mg oral 3-01 Refill(s) l tablet 21:36: rivaroxaban 0 Yes 0 Memori a 20 MG Oral 3-01 Refill(s) l Tablet 21:35: [Xarelto] 00 Cefuroxime 0 Yes 0 [facility] 250 MG Oral 3-01 Refill(s) l Tablet 21:35: pravastatin 0 Yes 0 Memori a 20 mg oral 3-01 Refill(s) l tablet 21:35: omeprazole 0 Yes 0 [facility] 20 mg oral 3-01 Refill(s) l delayed 21:35: 00 capsule rivaroxaban Yes 0 Memori a 20 MG Oral 3-01 Refill(s) l Tablet 21:35: [place] [Xarelto] 00 Cefuroxime Yes 0 Memoria 250 MG Oral 3-01 Refill(s) l Tablet 21:35: [place] 00 pravastatin Yes 0 Memori a 20 mg oral 3-01 Refill(s) l tablet 21:35: [place] 00 omeprazole Yes 0 [facility] 20 mg oral 3-01 Refill(s) l delayed 21:35: [place] release 00 capsule Vital Signs Vital Name Observation Time Observation Value Comments Source Systolic (mm Hg) 2020-07-06 21:16:00 Bunny Tapiaann Diastolic (mm Hg) 2020-07-06 21:16:00 Ashwini Henley Heart Rate 2020-07-06 21:16:00 [facility] Height 2020-07-06 21:16:00 170.18 cm [facility] Weight 2020-07-06 21:16:00 [facility] BMI Calculated 2020-07-06 21:16:00 Karthik Bryant Procedures Procedure Date / Time Performed Performing Clinician [facility] e Hysterectomy [facility] Appendectomy [facility] Gallbladder operation [facility] Encounters Start End Encounter Admission Attending Care Care Encounter Source Date/Time Date/Time Type Type Clinicians Facility Department ID 2020-10-19 2020-10-19 Ambulatory nullFlavo [facility] 55 [id number] Memoria 19:30:00 19:30:00 Pre-Reg r Specialty 02 l [facility] 2020-10-19 2020-10-19 Ambulatory nullFlavo [facility] Multi 55 [id number] Memoria 19:30:00 19:30:00 Pre-Reg r Specialty 02 l [facility] 2020-10-19 2020-10-19 Outpatient AALIYAH EVANSIE [id number] Memoria 14:30:00 14:30:00 Bozena [facility] 2020-10-19 2020-10-19 Outpatient Shala MG [facility] [id number] 14:30:00 14:30:00 Nisha L 02 2020-10-12 2020-10-12 Ambulatory nullFlavo [facility] Multi 55 [id number] Memoria 19:15:00 19:15:00 Pre-Reg r Specialty 01 l [facility] 2020-10-12 2020-10-12 Ambulatory nullFlavo [facility] Multi 55 [id number] Memoria 19:15:00 19:15:00 Pre-Reg r Specialty 01 l [facility] 2020-10-12 2020-10-12 Outpatient MHIE MHIE [id number] Memoria 14:15:00 14:15:00 01 [facility] 2020-10-12 2020-10-12 Outpatient Staller, [facility] [id number] 14:15:00 14:15:00 Nisha L 2020-07-06 2020-07-07 Outpatient nullFlavo [facility] Multi 55 [id number] Memoria 21:30:00 05:59:59 r Specialty 00 l [facility] 2020-07-06 2020-07-07 Outpatient nullFlavo [facility] Multi 55 [id number] Memoria 21:30:00 05:59:59 r Specialty 00 l [facility] 2020-07-06 2020-07-06 Outpatient Staller, [facility] [id number] 15:30:00 23:59:59 Nisha L 00 2020-07-06 2020-07-06 Outpatient MHIE MHIE [id number] Memoria 15:30:00 15:30:00 00 skylar TapiaKale 2020-01-03 2020-01-03 Emergency Natasha Chawla [facility] [id number] 13:32:00 17:51:00 Nasra Plummer [id number] [place] [id number] [place] [id number] 2020-01-03 2020-01-03 Emergency X [facility] ERT [id number] Univers 13:22:00 13:22:00 ity of [facility] 2020-01-03 2020-01-03 Orders Doctor RAMOS [id number] 00:00:00 00:00:00 Only Unassigned, JUAN MANUEL [id number] [place] [facility] [id number] 2019-05-11 2019-05-11 Emergency X ANISH [facility] ERT [id number] Univers 11:28:23 13:07:00 ЮЛИЯ soto of [facility] Results This patient has no known results.
[2022-01-13 22:48] LABS: Absolute Lymphocytes (CBC) 2.6 K/uL (0.7-4.9); Hematocrit 21.5 % (36.0-45.0); Lymphocytes % 29.9 % (15.3-44.8); MCV 66.8 fL (80-100); MPV 8.2 fL (7.6-11.3); RBC Red Blood Cell Count 3.22 M/uL (3.86-4.86)
[2022-01-13 22:54] LABS: Protime INR 1.51
--- NOTE | 2022-01-13 23:03 | EDPHYS ---
Physician Documentation [facility] Name: Sravanthi Mendoza Age: 77 yrs Sex: Female : 1945 Arrival Date: 01/13/2022 Time: 22:12 Bed 10 Private MD: ED Physician Ty Gimenez HPI: 01/13 22:58 This 77 yrs old Female presents to ER via Ambulatory with complaints of Low Hemoglobin rn sent by Dr. Tyson. 22:58 Family reports sent for blood transfusion, bloodwork today showed 6.9, reports sob with rn exertion and fatigued. Reports hx of GERD, and dark stool lately. . Onset: The symptoms/episode began/occurred at an unknown time. Severity of symptoms: At their worst the symptoms were moderate in the emergency department the symptoms are unchanged. The patient has not experienced similar symptoms in the past. The patient has been recently seen by a physician:. Historical: - Allergies: 22:21 PENICILLINS; as6 22:21 Sulfa (Sulfonamide Antibiotics); as6 - Home Meds: 22:22 omeprazole 20 mg Oral cpDR 1 cap once daily [Active]; Xarelto 20 mg oral tab 1 tab once as6 daily [Active]; spironolactone 25 mg Oral tab [Active]; metoprolol tartrate 50 mg Oral tab [Active]; - PMHx: 22:21 GERD; High Cholesterol; Hypertension; vit d deficiency; as6 - PSHx: 22:21 None; as6 - Immunization history:: Client reports receiving the 2nd dose of the Covid vaccine, moderna . - Social history:: Smoking status: Patient denies any tobacco usage or history of. - Family history:: not pertinent. - Hospitalizations: : No recent hospitalization is reported. ROS: 22:58 Constitutional: Negative for fever, chills, and weight loss, Eyes: Negative for injury, rn pain, redness, and discharge, Neck: Negative for injury, pain, and swelling, Cardiovascular: Negative for chest pain, palpitations, and edema, Respiratory: Negative for shortness of breath, cough, wheezing, and pleuritic chest pain, Abdomen/GI: Negative for abdominal pain, nausea, vomiting, diarrhea, and constipation, Back: Negative for injury and pain, MS/Extremity: Negative for injury and deformity, Skin: Negative for injury, rash, and discoloration, Neuro: Negative for headache, numbness, tingling, and seizure. Exam: 22:58 Constitutional: This is a well developed, well nourished patient who is awake, alert, rn and in no acute distress. Head/Face: Normocephalic, atraumatic. Cardiovascular: Regular rate and rhythm. No pulse deficits. Respiratory: No increased work of breathing, no retractions or nasal flaring. Abdomen/GI: soft, non-tender, + dark stool on exam and + hemoccult Skin: Warm, dry with normal turgor. Normal color with no rashes, no lesions, and no evidence of cellulitis. MS/ Extremity: Pulses equal, no cyanosis. Neurovascular intact. Full, normal range of motion. Equal circumference. Neuro: Awake and alert, GCS 15 Vital Signs: 22:19 BP 156 / 60; Pulse 64; Resp 18 S; Temp 98.3(O); Pulse Ox 100% on R/A; Weight 80.74 kg as6 (R); Height 5 ft. 7 in. (170.18 cm) (R); Pain 0/10; 01/14 00:01 BP 153 / 62; Pulse 78; Resp 18 S; Pulse Ox 99% on R/A; as6 04:01 BP 140 / 51; Pulse 65; Resp 16 S; Temp 98.2(O); Pulse Ox 100% on R/A; as6 08 22:19 Body Mass Index 27.88 (80.74 kg, 170.18 cm) as6 MDM: 01/13 22:18 Patient medically screened. rn 22:56 ED course: Spoke with Dr. Tyson, believes is slow bleed, spoke with Dr. Soares and plan rn was to admit overnight, transfuse and see Dr. Soares on Monday. Family aware of this plan. Family and patient worried about the bleeding, and do not want to be admitted here without GI stone sandblaster. After long discussion with family, their wish is to be transferred for GI evaluation and want a second opinion. Will start blood transfusion and transfer per family's wishes. . 22:58 Differential Diagnosis anemia, GIB. Data reviewed: vital signs, nurses notes, lab test rn result(s), and as a result, I will admit patient. Counseling: I had a detailed discussion with the patient and/or guardian regarding: the historical points, exam findings, and any diagnostic results supporting the discharge/admit diagnosis, lab results, the need to transfer to another facility, for higher level of care, [facility] does not immediately have the required specialist. 01/13 22:19 Order name: CBC with Diff; Complete Time: 23:47 rn 01/13 22:19 Order name: Basic Metabolic Panel; Complete Time: 23:47 rn 01/13 22:19 Order name: Protime (+inr); Complete Time: 22:58 rn 01/13 22:19 Order name: Ptt, Activated; Complete Time: 22:58 rn 01/13 22:19 Order name: Type And Screen rn 01/13 22:43 Order name: SARS RAPID; Complete Time: 23:47 bb 01/13 22:19 Order name: IV Start; Complete Time: 22:52 rn 01/13 22:43 Order name: SARS RAPID ld1 01/13 22:54 Order name: CBC Smear Scan; Complete Time: 23:47 EDMS 01/14 00:26 Order name: Packed RBC Leukored EDMS 01/14 00:49 Order name: ABO/RH no charge EDMS Administered Medications: 01/14 01:11 Drug: ProTONIX (pantoprazole) 40 mg Route: IVP; Site: left antecubital; as6 01:56 Follow up: Response: No adverse reaction as6 01:11 Drug: ProTONIX (pantoprazole) 8 mg/hr Route: IV; Rate: 25 ml/hr; Site: left antecubital;as6 01:56 Follow up: Response: No adverse reaction; IV Status: Infusion continued upon transfer; as6 IV Intake: 30ml Disposition Summary: 01/13/22 23:02 Transfer Ordered Transfer Location: [facility] rn Reason: Higher level of care rn Condition: Stable rn Problem: new rn Symptoms: are unchanged rn Accepting Physician: Dr. Cooley(01/14/22 04:02) as6 Diagnosis - Anemia, unspecified rn - GI Bleed/ Gastrointestinal hemorrhage, unspecified rn Forms: - Medication Reconciliation Form rn - SBAR form rn Signatures: Dispatcher [employer] EDMS Ty Gimenez MD MD rn Slawson, Ashby, RN RN as6 Corrections: (The following items were deleted from the chart) 00:13 01/13 23:02 Dr. kezia mast 01/14 04:02 00:13 Dr. Yasir mast as6
--- NOTE | 2022-01-13 23:03 | ER ---
Nurse's Notes [facility] Name: Sravanthi Mendoza Age: 77 yrs Sex: Female : 1945 Arrival Date: 01/13/2022 Time: 22:12 Bed 10 Private MD: Diagnosis: Anemia, unspecified;GI Bleed/ Gastrointestinal hemorrhage, unspecified Presentation: 01/13 22:19 Chief complaint: Patient states: pt was seen by Dr. Tyson today and he called pt say to as6 come to ER due to h\T\h being very low. pt reports fatigue. Coronavirus screen: At this time, the client does not indicate any symptoms associated with coronavirus-19. Ebola Screen: No symptoms or risks identified at this time. Initial Sepsis Screen: Does the patient meet any 2 criteria? No. Patient's initial sepsis screen is negative. Does the patient have a suspected source of infection? No. Patient's initial sepsis screen is negative. Risk Assessment: Do you want to hurt yourself or someone else? Patient reports no desire to harm self or others. Onset of symptoms was January 13, 2022. 22:19 Method Of Arrival: Ambulatory as6 22:19 Acuity: AIDEE 3 as6 Historical: - Allergies: 22:21 PENICILLINS; as6 22:21 Sulfa (Sulfonamide Antibiotics); as6 - Home Meds: 22:22 omeprazole 20 mg Oral cpDR 1 cap once daily [Active]; Xarelto 20 mg oral tab 1 tab once as6 daily [Active]; spironolactone 25 mg Oral tab [Active]; metoprolol tartrate 50 mg Oral tab [Active]; - PMHx: 22:21 GERD; High Cholesterol; Hypertension; vit d deficiency; as6 - PSHx: 22:21 None; as6 - Immunization history:: Client reports receiving the 2nd dose of the Covid vaccine, moderna . - Social history:: Smoking status: Patient denies any tobacco usage or history of. - Family history:: not pertinent. - Hospitalizations: : No recent hospitalization is reported. Screenin:59 Abuse screen: Denies threats or abuse. Denies injuries from another. Nutritional ld1 screening: No deficits noted. Tuberculosis screening: No symptoms or risk factors identified. Fall Risk None identified. Assessment: 22:59 General: Appears in no apparent distress. comfortable, Behavior is calm, cooperative, ld1 appropriate for age. Pain: Denies pain. Neuro: Level of Consciousness is awake, alert, obeys commands, Oriented to person, place, time, situation. Cardiovascular: Capillary refill < 3 seconds Patient's skin is warm and dry. Cardiovascular: Respiratory: Airway is patent Respiratory effort is even, unlabored. GI: Abdomen is round non-distended. : No signs and/or symptoms were reported regarding the genitourinary system. EENT: No signs and/or symptoms were reported regarding the EENT system. Derm: No signs and/or symptoms reported regarding the dermatologic system. Musculoskeletal: No signs and/or symptoms reported regarding the musculoskeletal system. 01/14 00:01 Reassessment: Patient appears in no apparent distress at this time. as6 01:40 General: pt receiving blood transfusion. see paper charting for vitals . as6 01:46 Reassessment: report called to Mae DOMINGUEZ for [facility] room 1419. bb 04:01 General: blood transfusion complete . as6 Vital Signs: 01/13 22:19 BP 156 / 60; Pulse 64; Resp 18 S; Temp 98.3(O); Pulse Ox 100% on R/A; Weight 80.74 kg as6 (R); Height 5 ft. 7 in. (170.18 cm) (R); Pain 0/10; 01/14 00:01 BP 153 / 62; Pulse 78; Resp 18 S; Pulse Ox 99% on R/A; as6 04:01 BP 140 / 51; Pulse 65; Resp 16 S; Temp 98.2(O); Pulse Ox 100% on R/A; as6 01/13 22:19 Body Mass Index 27.88 (80.74 kg, 170.18 cm) as6 ED Course: 01/13 22:12 Patient arrived in ED. bp1 22:18 Ty Gimenez MD is Attending Physician. rn 22:21 Triage completed. as6 22:25 Arm band placed on. as6 22:52 Shilpa Akins, ANGELICA is Primary Nurse. ld1 22:52 Inserted saline lock: 20 gauge in left antecubital area, using aseptic technique. Blood ld1 collected. 22:54 SARS RAPID Sent. ld1 22:59 Patient has correct armband on for positive identification. Placed in gown. Bed in low ld1 position. Call light in reach. Side rails up X2. cardiac monitor technician on. Pulse ox on. NIBP on. Door closed. Noise minimized. Warm blanket given. 22:59 No provider procedures requiring assistance completed. Served as a logistic manager during ld1 rectal exam. 01/14 00:01 Primary Nurse role handed off by Shilpa Akins, ANGELICA as6 00:01 Kenneth Cazares, ANGELICA is Primary Nurse. as6 01:12 Inserted saline lock: 20 gauge in right antecubital area, using aseptic technique. as6 01:56 Patient transferred, IV remains in place. as6 Administered Medications: 01:11 Drug: ProTONIX (pantoprazole) 40 mg Route: IVP; Site: left antecubital; as6 01:56 Follow up: Response: No adverse reaction as6 01:11 Drug: ProTONIX (pantoprazole) 8 mg/hr Route: IV; Rate: 25 ml/hr; Site: left antecubital;as6 01:56 Follow up: Response: No adverse reaction; IV Status: Infusion continued upon transfer; as6 IV Intake: 30ml Medication: 01/13 22:59 VIS not applicable for this client. ld1 Intake: 01/14 01:56 IV: 30ml; Total: 30ml. as6 04:02 IV: 305ml (Blood Products); Total: 335ml. as6 Outcome: 01/13 23:02 ER care complete, transfer ordered by . angelica 01/14 01:55 Transferred by ground EMS to [facility], Transfer form completed. as6 Condition: stable Instructed on the need for transfer. 04:02 Patient left the ED. as6 Signatures: Keiko Garcia RN RN Ty Gimenez MD MD rn Paniauga, Brittany bp1 Dibbern, Lauren, ANGELICA RN ld1 Kenneth Cazares RN RN as6
[2022-01-13 23:17] LABS: Blood Morphology Comment NOTED (NOT SEEN); Hypochromasia 1+; Ovalocytes 1+; Platelet Estimate ADEQ; White Blood Cell Scan OK (OK)
[2022-01-13 23:18] LABS: Potassium 4.3 mmol/L (3.5-5.1)
[2022-01-13 23:40] LABS: SARS-CoV-2 Antigen Rapid Res Negative (Negative)
[2022-01-14] MEDS ORDERED: PANTOPRAZOLE 40 MG INJ ONE (01:05)
[2022-01-14] MEDS ORDERED: NA CHLORIDE 0.9% 500 ML ONE (01:05)
[2022-01-14 05:48] VITALS: BP 140/51; TEMP 98.2; O2SAT 100
== END 2022-01-14 04:02 | disposition short-term general hospital (02) ==
LOC: ER 22:10
PROC: 30233N1 Transfusion of Nonautologous Red Blood Cells into Peripheral Vein, Percutaneous Approach (ICD-10-PCS; principal; 2022-01-14)
DX: D64.9 Anemia, unspecified (principal); I10 Essential (primary) hypertension; E78.00 Pure hypercholesterolemia, unspecified; Z79.01 Long term (current) use of anticoagulants; Z88.0 Allergy status to penicillin; Z88.2 Allergy status to sulfonamides; Z20.822 Contact with and (suspected) exposure to COVID-19
CPT/HCPCS: 96365; 85025; 80048; 36415; 86900; 86850; 85610; 86901; 85730; 99285; 87811; 36430; C9113; P9016; J7050

== ENCOUNTER → 2023-05-27 | Emergency (ER) | payer OTHER, MEDICARE ==
[~2023-05-27] MED LIST: NA CHLORIDE 0.9% 1,000 ML ONE; ONDANSETRON 4 MG/2 ML VIAL ONE; PANTOPRAZOLE 40 MG INJ ONE; hydrOXYzine HCL 25 MG TAB ONE
[2023-05-27 15:02] LABS: Absolute Lymphocytes (CBC) 1.8 K/uL (0.7-4.9); Hematocrit 35.4 % (36.0-45.0); Lymphocytes % 14.9 % (15.3-44.8); MCV 80.6 fL (80-100); Platelets 142 thou/uL (152-406); RBC Red Blood Cell Count 4.39 M/uL (3.86-4.86)
[2023-05-27 15:18] LABS: Albumin 3.2 g/dL (3.4-5.0); Bilirubin Total 0.7 mg/dL (0.2-1.0); Potassium 4.1 mEq/L (3.5-5.1); Protein, Total 7.1 g/dL (6.4-8.2)
[2023-05-27 15:22] LABS: SARS-CoV-2 Antigen Rapid Res Negative (Negative)
--- NOTE | 2023-05-27 15:37 | RAD REPORT ---
EXAM DESCRIPTION: RADChest Single View05/27/2023 3:07 pm CLINICAL HISTORY: uri s/s COMPARISON: Chest Single View dated 01/13/2020; Chest Single View dated 01/10/2020; Chest Single View da darcie 01/09/2020; CHEST SINGLE VIEW dated 01/28/2010; Thorax Wo Con dated 08/19/2021 TECHNIQUE: Portable AP view of the chest. FINDINGS: Interval improvement of patchy airspace opacities on the prior radiographs. Hyperlucency a nd peripheral predominant chronic reticulation are stable, suggesting nonspecific interstitial pneumo nitis or fibrosis. No pneumothorax or effusion. The cardiomediastinal contours are unremarkable. IMPRESSION: No acute cardiopulmonary process. Findings as above.
--- NOTE | 2023-05-27 15:50 | ER ---
Nurse's Notes [facility] Name: Sravanthi Mendoza Age: 78 yrs Sex: Female : 1945 Arrival Date: 05/27/2023 Time: 13:47 Bed 20 Private MD: Diagnosis: Melena Presentation: 05/27 13:55 Chief complaint: Patient's son or daughter states: Cough, sore throat, fever since banner Monday. Diarrhea since Monday, noticed black stool today. Takes xarelto. 13:55 Coronavirus screen: Vaccine status: Patient reports receiving the 2nd dose of the covid nj1 vaccine. Ebola Screen: Patient denies travel to an Ebola-affected area in the 21 days before illness onset. Initial Sepsis Screen: Does the patient meet any 2 criteria? No. Patient's initial sepsis screen is negative. Does the patient have a suspected source of infection? No. Patient's initial sepsis screen is negative. Risk Assessment: Do you want to hurt yourself or someone else? Patient reports no desire to harm self or others. Onset of symptoms was May 2023. 13:55 Method Of Arrival: Ambulatory banner 13:55 Acuity: AIDEE 3 nj Historical: - Allergies: 14:07 PENICILLINS; nj1 14:07 Sulfa (Sulfonamide Antibiotics); nj1 - Home Meds: 16:56 omeprazole 20 mg Oral cpDR 1 cap once daily [Active]; spironolactone 25 mg Oral tab tl4 [Active]; Xarelto 10 mg oral tablet [Active]; metoprolol succinate 50 mg oral Tablet, Extended Release 24 hr 1 tabs [Active]; - PMHx: 14:07 GERD; High Cholesterol; Hypertension; vit d deficiency; Deep vein thrombosis; nj1 - PSHx: 14:07 Cholecystectomy; Appendectomy; nj1 14:08 Hysterectomy; nj1 - Immunization history:: Client reports receiving the 2nd dose of the Covid vaccine. - Social history:: Smoking status: Patient denies any tobacco usage or history of. Screenin:53 [facility] ED Fall Risk Assessment (Adult) History of falling in the last 3 months, tl4 including since admission No falls in past 3 months (0 pts) Confusion or Disorientation No (0 pts) Intoxicated or Sedated No (0 pts) Impaired Gait No (0 pts) Mobility Assist Device Used No (0 pt) Altered Elimination No (0 pt) Score/Fall Risk Level 0 - 2 = Low Risk Oriented to surroundings, Maintained a safe environment, Educated pt \T\ family on fall prevention, incl call for assistance when getting out of bed, Assessed \T\ reinforced patient's understanding of fall precautions. Abuse screen: Denies threats or abuse. Denies injuries from another. Nutritional screening: No deficits noted. Tuberculosis screening: No symptoms or risk factors identified. Assessment: 15:00 General: Appears in no apparent distress. Behavior is calm, cooperative. Pain: Denies tl4 pain. Neuro: No deficits noted. Cardiovascular: No deficits noted. Denies chest pain, lightheadedness, palpitations. Respiratory: No deficits noted. Denies cough, shortness of breath. GI: Reports diarrhea. : No deficits noted. No signs and/or symptoms were reported regarding the genitourinary system. EENT: No deficits noted. No signs and/or symptoms were reported regarding the EENT system. Derm: No deficits noted. No signs and/or symptoms reported regarding the dermatologic system. Musculoskeletal: No deficits noted. No signs and/or symptoms reported regarding the musculoskeletal system. 16:03 Reassessment: No changes from previously documented assessment. Patient and/or family tl4 updated on plan of care and expected duration. Pain level reassessed. Patient is alert, oriented x 3, equal unlabored respirations, skin warm/dry/pink. 17:05 Reassessment: No changes from previously documented assessment. Patient and/or family tl4 updated on plan of care and expected duration. Pain level reassessed. Patient is alert, oriented x 3, equal unlabored respirations, skin warm/dry/pink. 17:06 Reassessment: Report given to ANGELICA Ngo at [facility]. Pt signed consent for tl4 transfer. Updated on status. Vital Signs: 13:55 BP 154 / 68; Pulse 71; Resp 18; Temp 98(O); Pulse Ox 98% on R/A; nj1 14:00 BP 132 / 68; Pulse 70; Resp 19; Pulse Ox 96% on R/A; Pain 0/10; tl4 14:30 BP 129 / 61; Pulse 65; Resp 17; Pulse Ox 98% on R/A; tl4 15:00 BP 130 / 58; Pulse 64; Resp 18; Pulse Ox 99% on R/A; Pain 0/10; tl4 15:30 BP 107 / 87; Pulse 66; Resp 16; Pulse Ox 99% on R/A; Pain 0/10; tl4 16:00 BP 149 / 63; Pulse 67; Resp 17; Pulse Ox 97% on R/A; tl4 16:30 BP 155 / 66; Pulse 65; Resp 18; Pulse Ox 96% on R/A; Pain 0/10; tl4 17:48 BP 152 / 70; Pulse 64; Resp 18; Pulse Ox 98% on R/A; Pain 0/10; tl4 14:00 Pain Scale: Adult tl4 15:00 Pain Scale: Adult tl4 15:30 Pain Scale: Adult tl4 16:30 Pain Scale: Adult tl4 17:48 Pain Scale: Adult tl4 Vitals: 17:48 Cardiac Rhythm Assessment Regular Sinus rhythm. tl4 Merced Coma Score: 17:48 Eye Response: spontaneous(4). Motor Response: obeys commands(6). Verbal Response: tl4 oriented(5). Total: 15. ED Course: 13:50 Patient arrived in ED. mg5 13:51 Tanner Monk MD is Attending Physician. ec2 14:07 Triage completed. nj1 14:08 Arm band placed on left wrist. nj1 14:27 Adonis Montague is Primary Nurse. tl4 14:48 Troponin High Sensitivity Sent. tl4 14:48 Type And Screen Sent. tl4 14:48 CBC with Diff Sent. tl4 14:48 CMP Sent. tl4 14:48 Lipase Sent. tl4 14:48 Influenza Screen (a \T\ B) Sent. tl4 15:09 CXR XRAY In Process Unspecified. EDMS 15:46 initiated a transfer with Jadon Sauceda Rn from the [facility]. eb 15:54 Patient has correct armband on for positive identification. Placed in gown. Bed in low tl4 position. Call light in reach. Side rails up X2. Adult w/ patient. Provided Education on: ED process. Client placed on continuous cardiac and pulse oximetry monitoring. NIBP monitoring applied. Door closed. Lights dimmed. Warm blanket given. 15:55 No provider procedures requiring assistance completed. tl4 16:06 connected the hospitalist top ironer for [facility] with Dr. Monk for patient eb transfer consultation. 16:28 administrative approval given by Macie Sauceda Rn/ patient has been accepted to [facility] room 1550/ Dr. Jakob Sargent has accepted the patient in transfer/ report to be called to [phone]. 17:08 Patient transferred, IV remains in place. tl4 Administered Medications: 17:50 Discontinued: ns 0.9% 1000 ml IV at 1 bolus Per protocol; 1000 mL bolus tl4 14:48 Drug: NS 0.9% IV 1000 ml IV at 1 bolus Per protocol; 1000 mL bolus Route: IV; Rate: 1 tl4 bolus; Site: right antecubital; Delivery: Primary tubing; 17:50 Follow up: Response: No adverse reaction tl4 17:51 Follow up: Response: No adverse reaction tl4 14:58 Drug: Pantoprazole IVP 80 mg IVP once Route: IVP; Site: right antecubital; tl4 17:49 Follow up: Response: No adverse reaction tl4 15:30 Not Given (Patient Refused): ondansetron 4 mg IVP once; over 2 minutes tl4 17:43 Drug: hydrOXYzine PO 50 mg PO once Route: PO; tl4 17:47 Follow up: Response: Medication administered at discharge. tl4 Medication: 15:53 VIS not applicable for this client. tl4 Outcome: 15:49 ER care complete, transfer ordered by . ec2 17:47 Patient left the ED. eb 17:48 Transferred by ground EMS [facility]. to [facility], Transfer tl4 form completed. 17:48 Condition: stable 17:48 Instructed on the need for transfer, Signatures: Dispatcher [employer] EDMS Ramona Garsia Norma RN RN nj1 Britta Herndon mg5 Tanner Monk MD MD ec2 Adonis Montague tl4 Corrections: (The following items were deleted from the chart) 14:59 14:48 SARS-COV-2 RT PCR+MOL.LAB.BRZ drawn and sent. tl4 EDMS
--- NOTE | 2023-05-27 15:50 | EDPHYS ---
Physician Documentation [facility] Name: Sravanthi Mendoza Age: 78 yrs Sex: Female : 1945 Arrival Date: 05/27/2023 Time: 13:47 Bed 20 Private MD: ED Physician Tanner Monk HPI: 05/27 14:06 This 78 yrs old Female presents to ER via Unassigned with complaints of ec2 Diarrhea - Black. 14:06 Patient arrives today for evaluation of diarrhea symptoms. States that she been having ec2 URI signs and symptoms for the past week, noted that she had black stools today. Patient reports some nausea. Denies vomiting. Patient reports no abdominal pain. Denies urinary complaints. States that she has been having nonproductive cough.. Historical: - Allergies: 14:07 PENICILLINS; nj1 14:07 Sulfa (Sulfonamide Antibiotics); nj1 - Home Meds: 16:56 omeprazole 20 mg Oral cpDR 1 cap once daily [Active]; spironolactone 25 mg Oral tab tl4 [Active]; Xarelto 10 mg oral tablet [Active]; metoprolol succinate 50 mg oral Tablet, Extended Release 24 hr 1 tabs [Active]; - PMHx: 14:07 GERD; High Cholesterol; Hypertension; vit d deficiency; Deep vein thrombosis; nj1 - PSHx: 14:07 Cholecystectomy; Appendectomy; nj1 14:08 Hysterectomy; nj1 - Immunization history:: Client reports receiving the 2nd dose of the Covid vaccine. - Social history:: Smoking status: Patient denies any tobacco usage or history of. ROS: 14:06 Constitutional: as per hpi ec2 Exam: 14:06 Constitutional: GEN: NAD Head: atraumatic Eyes: EOMI Ears: External ears are ec2 normal. CV: regular rate LUNGS: no respiratory distress ABD: non-distended, soft, nontender, no guarding, nonrigid. : Supervised by nursing, normal, dark-colored stool, soft SKIN: no evidence of rashes MSK: no evidence of trauma NEURO: moves all extremities equally Vital Signs: 13:55 BP 154 / 68; Pulse 71; Resp 18; Temp 98(O); Pulse Ox 98% on R/A; nj1 14:00 BP 132 / 68; Pulse 70; Resp 19; Pulse Ox 96% on R/A; Pain 0/10; tl4 14:30 BP 129 / 61; Pulse 65; Resp 17; Pulse Ox 98% on R/A; tl4 15:00 BP 130 / 58; Pulse 64; Resp 18; Pulse Ox 99% on R/A; Pain 0/10; tl4 15:30 BP 107 / 87; Pulse 66; Resp 16; Pulse Ox 99% on R/A; Pain 0/10; tl4 16:00 BP 149 / 63; Pulse 67; Resp 17; Pulse Ox 97% on R/A; tl4 16:30 BP 155 / 66; Pulse 65; Resp 18; Pulse Ox 96% on R/A; Pain 0/10; tl4 17:48 BP 152 / 70; Pulse 64; Resp 18; Pulse Ox 98% on R/A; Pain 0/10; tl4 14:00 Pain Scale: Adult tl4 15:00 Pain Scale: Adult tl4 15:30 Pain Scale: Adult tl4 16:30 Pain Scale: Adult tl4 17:48 Pain Scale: Adult tl4 Radiant Coma Score: 17:48 Eye Response: spontaneous(4). Motor Response: obeys commands(6). Verbal Response: tl4 oriented(5). Total: 15. MDM: 13:54 Patient medically screened. ec2 14:06 ED course: Patient arrives today for evaluation of dark-colored stools. Examination ec2 remarkable for well-appearing nontoxic individual is otherwise in no acute distress with a reassuring examination with dark-colored stools. Will obtain lab work, type and screen, empirically treated with Protonix given the reported black stools.. 15:17 Data reviewed: vital signs. ED course: CBC shows minimal anemia with a hemoglobin of ec2 11.7.. 15:40 ED course: Metabolic profile shows renal dysfunction with a creatinine of 1.29 and GFR ec2 42, LFTs are generally unremarkable. Troponin within normal ranges, lipase within normal ranges. Chest x-ray shows no acute intrathoracic process. Flu and COVID testing negative. . 15:48 ED course: On reassessment patient is well-appearing in no acute distress. Given the ec2 patient's melena, will transfer to a GI capable facility.. 15:50 ED course: EKG independently reviewed and interpreted by me, shows normal sinus rhythm, ec2 rate of 65, no acute ST segment elevations, nonconcerning intervals. . 16:07 ED course: Discussed the case with transferring physician who agrees accept this ec2 patient for admission.. 05/27 14:05 Order name: CBC with Diff; Complete Time: 15:16 ec2 05/27 14:05 Order name: CMP; Complete Time: 15:39 ec2 05/27 14:05 Order name: Lipase; Complete Time: 15:39 ec2 05/27 14:05 Order name: Type And Screen; Complete Time: 16:06 ec2 05/27 14:05 Order name: Troponin High Sensitivity; Complete Time: 15:39 ec2 05/27 14:05 Order name: Influenza Screen (a \T\ B); Complete Time: 15:39 ec2 05/27 14:59 Order name: SARS-COV-2 Antigen Rapid; Complete Time: 15:39 EDMS 05/27 14:05 Order name: CXR XRAY; Complete Time: 15:39 ec2 05/27 14:05 Order name: IV Saline Lock; Complete Time: 14:48 ec2 05/27 14:05 Order name: Labs collected and sent; Complete Time: 14:48 ec2 05/27 14:05 Order name: EKG - Nurse/Tech; Complete Time: 15:48 ec2 Administered Medications: 17:50 Discontinued: ns 0.9% 1000 ml IV at 1 bolus Per protocol; 1000 mL bolus tl4 14:48 Drug: NS 0.9% IV 1000 ml IV at 1 bolus Per protocol; 1000 mL bolus Route: IV; Rate: 1 tl4 bolus; Site: right antecubital; Delivery: Primary tubing; 17:50 Follow up: Response: No adverse reaction tl4 17:51 Follow up: Response: No adverse reaction tl4 14:58 Drug: Pantoprazole IVP 80 mg IVP once Route: IVP; Site: right antecubital; tl4 17:49 Follow up: Response: No adverse reaction tl4 15:30 Not Given (Patient Refused): ondansetron 4 mg IVP once; over 2 minutes tl4 17:43 Drug: hydrOXYzine PO 50 mg PO once Route: PO; tl4 17:47 Follow up: Response: Medication administered at discharge. tl4 Disposition Summary: 05/27/23 15:49 Transfer Ordered Notes: Transfer Location: [facility] ec2 Reason: Higher level of care ec2 Condition: Stable ec2 Problem: new ec2 Symptoms: are unchanged ec2 Accepting Physician: transferring doc(05/27/23 17:47) eb Diagnosis - Melena ec2 Forms: - Medication Reconciliation Form ec2 - SBAR form ec2 Signatures: Dispatcher [employer] EDNJ Ramona Garsia Norma, RN RN nj1 Tanner Monk MD MD ec2 Adonis Montague tl4 Corrections: (The following items were deleted from the chart) 14:59 14:06 SARS-COV-2 RT PCR+[id number].[email or web address] ordered. [facility] EDNJ 17:47 15:49 transferring doc ec2 eb
[2023-05-27 21:45] VITALS: TEMP 98
[2023-05-27 21:57] VITALS: BP 155/66; O2SAT 96
--- NOTE | 2023-05-29 16:56 | EKG ---
Test Date: 2023-05-27 Test Time: 15:46:26 Solid Waste Manager: TL MEASUREMENT RESULTS: Intervals: Rate: 65 ME: 138 QRSD: 72 QT: 420 QTc: 436 [place]: P: 65 ME: 138 QRS: 71 T: 91 INTERPRETIVE STATEMENTS: Normal sinus rhythm Nonspecific ST abnormality Abnormal ECG Compared to ECG 03/28/2021 10:07:32 No significant changes Electronically Signed On 05-29-23 16:52:28 RESOURCE MANAGER by Jeet Lyons
== END ==
LOC: ER 13:47
DX: K92.1 Melena (principal); R05.9 Cough, unspecified; J02.9 Acute pharyngitis, unspecified; R50.9 Fever, unspecified; Z11.52 Encounter for screening for COVID-19; Z88.0 Allergy status to penicillin; Z88.2 Allergy status to sulfonamides; I10 Essential (primary) hypertension; K21.9 Gastro-esophageal reflux disease without esophagitis; E78.00 Pure hypercholesterolemia, unspecified
CPT/HCPCS: 93005; 85025; 36415; 86900; 86850; 86901; 84484; 83690; 80053; 87804 ×2; 71045; 96374; 99285; 87811; C9113 ×2; J7030; J2405

== ENCOUNTER 2023-09-01 09:11 | Emergency (ER) | payer OTHER, MEDICARE ==
--- NOTE | 2023-09-01 10:11 | ER ---
Nurse's Notes [facility] Name: Sravanthi Mendoza Age: 78 yrs Sex: Female : 1945 Arrival Date: 09/01/2023 Time: 09:11 Bed 2 Private MD: Diagnosis: L5 radiculopathy Presentation: 08/31 09:30 Acuity: AIDEE 3 aa5 09:30 Onset of symptoms was August 2023. aa5 09:30 Coronavirus screen: At this time, the client does not indicate any symptoms associated aa5 with coronavirus-19. Ebola Screen: Patient denies travel to an Ebola-affected area in the 21 days before illness onset. Initial Sepsis Screen: Does the patient meet any 2 criteria? No. Patient's initial sepsis screen is negative. Does the patient have a suspected source of infection? No. Patient's initial sepsis screen is negative. Risk Assessment: Do you want to hurt yourself or someone else? Patient reports no desire to harm self or others. 09:30 Method Of Arrival: Wheelchair aa5 09:30 Chief complaint: Patient states: left hip pain radiating down to leg that began 3-4 aa5 days ago. Pt also c/o soreness to sacral area. Denies injury. Historical: - Allergies: 09:30 PENICILLINS; aa5 09:30 Sulfa (Sulfonamide Antibiotics); aa5 - PMHx: 09:30 Deep vein thrombosis; GERD; High Cholesterol; Hypertension; vit d deficiency; aa5 09:32 PE; Left leg DVT; aa5 - PSHx: 09:30 Appendectomy; Cholecystectomy; hysterectomy; aa5 - Immunization history:: Adult Immunizations unknown. - Infectious Disease History:: Denies. - Social history:: Smoking status: Patient denies any tobacco usage or history of. Screenin:30 [facility] ED Fall Risk Assessment (Adult) History of falling in the last 3 months, nj1 including since admission No falls in past 3 months (0 pts) Confusion or Disorientation No (0 pts) Intoxicated or Sedated No (0 pts) Impaired Gait Yes (1 pt) Mobility Assist Device Used No (0 pt) Altered Elimination No (0 pt) Score/Fall Risk Level 0 - 2 = Low Risk Oriented to surroundings, Maintained a safe environment, Hourly rounding (assess needs \T\ fall precautionary measures) done. 09:30 Abuse screen: Denies threats or abuse. Denies injuries from another. Nutritional nj1 screening: No deficits noted. Tuberculosis screening: No symptoms or risk factors identified. Assessment: 09:40 General: Appears in no apparent distress. uncomfortable, Behavior is calm, cooperative, nj1 appropriate for age. 09:40 Pain: Complains of pain in left leg Pain currently is 10 out of 10 on a pain scale. nj1 Pain: Pain began 4 days ago Is continuous, Alleviated by nothing. Neuro: Level of Consciousness is awake, alert, obeys commands, Oriented to person, place, time, situation. Cardiovascular: Patient's skin is warm and dry. Respiratory: Airway is patent Respiratory effort is even, unlabored. 10:26 Reassessment: Patient appears in no apparent distress at this time. Patient is alert, nj1 oriented x 3, equal unlabored respirations, skin warm/dry/pink. Vital Signs: 09:30 BP 180 / 68; Pulse 50; Resp 20 S; Temp 98(TE); Pulse Ox 100% on R/A; Weight 79.38 kg aa5 (R); Height 5 ft. 6 in. (R); 10:20 BP 198 / 63; Pulse 59; Resp 16; Pulse Ox 100% ; nj1 09:30 Body Mass Index 28.25 (79.38 kg, 167.64 cm) aa5 ED Course: 09:13 Patient arrived in ED. mg5 09:28 Arm band placed on. aa5 09:30 Patient has correct armband on for positive identification. Bed in low position. Call [facility] light in reach. Adult w/ patient. 09:30 Provided Education on: call light, fall precautions. nj1 09:31 Triage completed. aa5 09:35 Jory Araujo, ANGELICA is Primary Nurse. nj1 09:42 Clayton Gregg MD is Attending Physician. rt 10:25 Notified ED physician of other Blood pressure reading. Instructed to give home meds to nj1 patient. Pt refused to take medicine here, wishes to go home and take when she gets there. 10:29 No provider procedures requiring assistance completed. Patient did not have IV access nj during this emergency room visit. Administered Medications: 10:20 Drug: Coventry PO 5 mg-325 mg 1 tabs PO once Route: PO; nj1 Medication: 10: VIS not applicable for this client. nj1 Outcome: 10:11 Discharge ordered by MD. rt 10: Discharged to home via wheelchair, with family, nj1 10: Condition: stable 10:29 Discharge instructions given to patient, family, Instructed on discharge instructions, follow up and referral plans. medication usage, safety practices, Demonstrated understanding of instructions, follow-up care, medications, Prescriptions given X 2, 10: Patient left the ED. nj1 Signatures: Betty Estevez RN RN aa5 Clayton Gregg MD MD rt Jory Araujo RN RN nj1 Britta Herndon mg5 Corrections: (The following items were deleted from the chart) 09:33 09:30 79.38 kg Reported; Height 5 ft. 6 in. Reported; BMI: 28.2; aa5 aa5 10:27 10:26 BP 198 / 63; Pulse 59bpm; Resp 16bpm; Pulse Ox 100%; nj1 nj1
--- NOTE | 2023-09-01 10:11 | EDPHYS ---
Physician Documentation [facility] Name: Sravanthi Mendoza Age: 78 yrs Sex: Female : 1945 Arrival Date: 09/01/2023 Time: 09:11 Bed 2 Private MD: ED Physician Clayton Gregg Historical: - Allergies: 08/31 09:30 PENICILLINS; aa5 09:30 Sulfa (Sulfonamide Antibiotics); aa5 - PMHx: 09:30 Deep vein thrombosis; GERD; High Cholesterol; Hypertension; vit d deficiency; aa5 09:32 PE; Left leg DVT; aa5 - PSHx: 09:30 Appendectomy; Cholecystectomy; hysterectomy; aa5 - Immunization history:: Adult Immunizations unknown. - Infectious Disease History:: Denies. - Social history:: Smoking status: Patient denies any tobacco usage or history of. Vital Signs: 09:30 BP 180 / 68; Pulse 50; Resp 20 S; Temp 98(TE); Pulse Ox 100% on R/A; Weight 79.38 kg aa5 (R); Height 5 ft. 6 in. (R); 10:20 BP 198 / 63; Pulse 59; Resp 16; Pulse Ox 100% ; nj1 09:30 Body Mass Index 28.25 (79.38 kg, 167.64 cm) aa5 MDM: 09:51 Patient medically screened. rt Administered Medications: 10:20 Drug: Waldo PO 5 mg-325 mg 1 tabs PO once Route: PO; nj1 Disposition Summary: 09/01/23 10:11 Discharge Ordered Notes: Location: Home rt Problem: new rt Symptoms: are unchanged rt Condition: Stable rt Diagnosis - L5 radiculopathy rt Followup: rt - With: Private Physician - When: 5 - 6 days - Reason: Discharge Instructions: - Discharge Summary Sheet rt - Lumbosacral Radiculopathy rt Forms: - Medication Reconciliation Form rt - Antibiotic Education rt - Prescription Opioid Use rt - Patient Portal Instructions rt - Leadership Thank You Letter rt Prescriptions: - gabapentin 100 mg Oral capsule - take 1 capsule ORAL route 3 times per day; 60 capsule; Refills: 0, Product rt Selection Permitted - Cyclobenzaprine 5 mg Oral tablet - take 1 tablet ORAL route 3 times per day As needed; 30 tablet; Refills: 0, rt Product Selection Permitted Signatures: Betty Estevez, RN RN aa5 Clayton Gregg MD MD rt Jory Araujo, RN RN nj1
[2023-09-01] MEDS ORDERED: HYDROCODONE/APAP 5/325 MG TAB ONE (10:15)
[2023-09-01 10:50] VITALS: BP 198/63; TEMP 98; O2SAT 100
== END 2023-09-01 10:29 | disposition home or self-care (01) ==
LOC: ER 09:11
DX: M54.16 Radiculopathy, lumbar region (principal); Z88.0 Allergy status to penicillin; Z88.2 Allergy status to sulfonamides

== ENCOUNTER 2023-09-04 11:05 | Emergency (ER) | payer OTHER, MEDICARE ==
[2023-09-04] MEDS ORDERED: HYDROCODONE/APAP 7.5/325 MG TAB ONE (12:03)
--- NOTE | 2023-09-04 12:03 | RAD REPORT ---
EXAM DESCRIPTION: US - Extremity Venous Uni Ltd - 09/04/2023 11:58 am CLINICAL HISTORY: Pain;Radiculopathy Leg swelling and edema. COMPARISON: UPPER EXTREMITY VENOUS BILAT dated 01/18/2022 FINDINGS: Left lower extremity venous system was interrogated with Doppler technique. Normal flow, c ompressibility and augmentation was noted. There is no DVT present. IMPRESSION: No evidence of left lower extremity deep venous thrombosis.
[2023-09-04] MEDS ORDERED: dexAMETHasone 10 MG/ML VIAL ONE (12:04)
--- NOTE | 2023-09-04 12:09 | RAD REPORT ---
EXAM DESCRIPTION: CT - Spine Lumbar Wo Con - 09/04/2023 11:50 am CLINICAL HISTORY: Radiculopathy. Lower back pain;Radiculopathy COMPARISON: No comparisons TECHNIQUE: Axial noncontrast CT imaging of the lumbar spine was performed with coronal and sagittal re-formatted images. All CT scans are performed using dose optimization technique as appropriate and may include automated exposure control or mA/KV adjustment according to patient size. FINDINGS: Moderate diffuse osteopenia. No acute lumbar spine fracture seen. Vertebral body hemangiom a is seen L1. Paraspinal tissues are normal in thickness. No paraspinal abscess or hematoma seen. Posterior disc bulging is present lower lumbar spine, most notable at L4-5. In combination with facet and ligamentum flavum hypertrophy does result in moderate canal narrowing. IMPRESSION: No acute lumbar spine abnormality. Moderate central canal narrowing as detailed at L4-5.
[2023-09-04 13:28] LABS: Hematocrit 38.9 % (36.0-45.0); Hemoglobin 12.5 g/dL (12.0-15.0); MCH 27.8 pg (27.0-35.0); MCHC 32.1 g/dL (32.0-36.0); MCV 86.7 fL (80-100); MPV 9.1 fL (7.6-11.3); Platelets 155 thou/uL (152-406); RBC Red Blood Cell Count 4.49 M/uL (3.86-4.86); Red Cell Distribution Width 15.8 % (12.1-15.2)
[2023-09-04 13:42] LABS: Anion Gap 7.1 mEq/L (5.0-15.0); Magnesium 1.8 mg/dL (1.6-2.4); Potassium 4.1 mEq/L (3.5-5.1)
--- NOTE | 2023-09-04 15:22 | EDPHYS ---
Physician Documentation [facility] Name: Sravanthi Mendoza Age: 78 yrs Sex: Female : 1945 Arrival Date: 09/04/2023 Time: 11:05 Bed 8 Private MD: GUERO Physician Andrzej Zheng HPI: 09/03 11:51 This 78 yrs old Female presents to ER via Wheelchair with complaints of Low Back Pain, sb4 Leg Pain. 11:51 left lateral leg pain that radiates down the leg x 1 week. was seen here 3 days ago, sb4 diagnosed with pinched nerve, prescribed flexeril and gabapentin. states those medications do not help her pain, just make her sleepy. denies any known injury to the area. denies any bowel or bladder incontinence. does have histories of DVTs, is on xarelto. Historical: - Allergies: 11:27 PENICILLINS; iw 11:27 Sulfa (Sulfonamide Antibiotics); iw - Home Meds: 11:27 metoprolol succinate 50 mg Oral Tablet 1 tabs [Active]; omeprazole 20 mg Oral cpDR 1 iw cap once daily [Active]; spironolactone 25 mg Oral tab [Active]; Xarelto 10 mg Oral tablet [Active]; - PMHx: 11:27 GERD; High Cholesterol; Hypertension; Deep vein thrombosis; left leg DVT; PE; vit d iw deficiency; - PSHx: 11:27 Appendectomy; Cholecystectomy; hysterectomy; iw - Immunization history:: Adult Immunizations not up to date. - Infectious Disease History:: Denies. - Social history:: Smoking status: Patient denies any tobacco usage or history of. ROS: 11:53 Constitutional: Negative for fever, chills, and weight loss, sb4 11:53 MS/extremity: Positive for pain, of the left leg, 11:53 All other systems are negative, Exam: 11:53 Constitutional: This is a well developed, well nourished patient who is awake, alert, sb4 and in no acute distress. Head/Face: Normocephalic, atraumatic. Eyes: Extra-ocular motions intact. Periorbital areas with no swelling, redness, or edema. ENT: Mucous membranes moist. Cardiovascular: Regular rate and rhythm with a normal S1 and S2. Respiratory: Lungs have equal breath sounds bilaterally, clear to auscultation and percussion. No rales, rhonchi or wheezes noted. No increased work of breathing, no retractions or nasal flaring. Abdomen/GI: Soft, non-tender, no distension. Skin: Warm, dry with normal turgor. Normal color with no rashes, no lesions, and no evidence of cellulitis. MS/ Extremity: Pulses equal, no cyanosis. Neurovascular intact. Full, normal range of motion. Neuro: Awake and alert, GCS 15, oriented to person, place, time, and situation. Motor strength 5/5 in all extremities. Sensory grossly intact. Vital Signs: 11:24 BP 139 / 69; Pulse 55; Resp 16; Temp 97.4; Pulse Ox 97% on R/A; Weight 79.38 kg; Height iw 5 ft. 4 in. ; Pain 10; 14:00 BP 127 / 86; Pulse 58; Resp 18; Temp 97.2; Pulse Ox 98% on R/A; ph 11:24 Body Mass Index 30.04 (79.38 kg, 162.56 cm) iw 11:24 Pain Scale: Adult iw MDM: 11:35 Patient medically screened. sb4 15:21 Data reviewed: vital signs, nurses notes, lab test result(s), and as a result, I will sb4 discharge patient. Counseling: I had a detailed discussion with the patient and/or guardian regarding the historical points, exam findings, and any diagnostic results supporting the discharge/admit diagnosis, radiology results, to return to the emergency department if symptoms worsen or persist or if there are any questions or concerns that arise at home. 09/03 11:36 Order name: CBC w/o diff; Complete Time: 13:29 sb4 09/03 11:36 Order name: BMP; Complete Time: 13:46 sb4 09/03 11:36 Order name: Magnesium; Complete Time: 13:46 sb4 09/03 11:36 Order name: Extremity Venous Uni Ltd US; Complete Time: 12:10 sb4 09/03 11:36 Order name: CT Lumbar Spine Wo Con; Complete Time: 12:10 sb4 09/03 11:36 Order name: IV Start; Complete Time: 13:38 sb4 Administered Medications: 12:49 Drug: Hydrocodone-Acetaminophen PO (7.5 mg-325 mg) 1 tabs PO once Route: PO; ph 13:30 Follow up: Response: No adverse reaction ph 13:38 Drug: Decadron - Dexamethasone IVP 10 mg IVP once Route: IVP; Site: left antecubital; ph 14:00 Follow up: Response: No adverse reaction ph Disposition Summary: 09/04/23 15:21 Discharge Ordered Notes: Location: Home sb4 Problem: new sb4 Symptoms: have improved sb4 Condition: Stable sb4 Diagnosis - Pain in left leg sb4 Followup: sb4 - With: Emergency Department - When: As needed - Reason: Trouble breathing, Worsening of condition Discharge Instructions: - Discharge Summary Sheet sb4 - Musculoskeletal Pain sb4 Forms: - Antibiotic Education sb4 - Patient Portal Instructions sb4 - Leadership Thank You Letter sb4 Prescriptions: - Medrol (Petey) 4 mg Oral Tablets, Dose Pack - take 1 tablet ORAL route as directed - follow package instructions; 1 packet; sb4 Refills: 0, Product Selection Permitted Addendum: 09/05/2023 22:08 Co-signature as Attending Physician, Andrzej Zheng MD I agree with the assessment and c cha plan of care. Signatures: Dispatcher [employer] Andrzej Tabares MD MD cha Williams, Irene, RN RN Isabel Hebert RN RN Jennifer Fortune PA-C PA-C sb4
--- NOTE | 2023-09-04 15:22 | ER ---
Nurse's Notes [facility] Name: Sravanthi Mendoza Age: 78 yrs Sex: Female : 1945 Arrival Date: 09/04/2023 Time: 11:05 Bed 8 Private MD: Diagnosis: Pain in left leg Presentation: 09/03 11:24 Chief complaint: Patient's son or daughter states: was seen here [facility] for back pain iw and pain down her left leg , ER doc thought she had a pinched nerve and now the pain is worse, the medicine made her sleepy, the pain makes her unable to walk . Has had similar pain in her right leg in May and she managed the pain at home, denies injury. Coronavirus screen: At this time, the client does not indicate any symptoms associated with coronavirus-19. Ebola Screen: Patient negative for fever greater than or equal to 101.5 degrees Fahrenheit, and additional compatible Ebola Virus Disease symptoms Patient denies exposure to infectious person. Patient denies travel to an Ebola-affected area in the 21 days before illness onset. No symptoms or risks identified at this time. Initial Sepsis Screen: Does the patient meet any 2 criteria? No. Patient's initial sepsis screen is negative. Does the patient have a suspected source of infection? No. Patient's initial sepsis screen is negative. Risk Assessment: Do you want to hurt yourself or someone else? Patient reports no desire to harm self or others. Onset of symptoms. 11:24 Method Of Arrival: Wheelchair iw 11:24 Acuity: AIDEE 3 iw Historical: - Allergies: 11:27 PENICILLINS; iw 11:27 Sulfa (Sulfonamide Antibiotics); iw - Home Meds: 11:27 metoprolol succinate 50 mg Oral Tablet 1 tabs [Active]; omeprazole 20 mg Oral cpDR 1 iw cap once daily [Active]; spironolactone 25 mg Oral tab [Active]; Xarelto 10 mg Oral tablet [Active]; - PMHx: 11:27 GERD; High Cholesterol; Hypertension; Deep vein thrombosis; left leg DVT; PE; vit d iw deficiency; - PSHx: 11:27 Appendectomy; Cholecystectomy; hysterectomy; iw - Immunization history:: Adult Immunizations not up to date. - Infectious Disease History:: Denies. - Social history:: Smoking status: Patient denies any tobacco usage or history of. Screenin:18 Abuse screen: Denies threats or abuse. Denies injuries from another. Nutritional ph screening: On. Tuberculosis screening: No symptoms or risk factors identified. 13:19 [facility] ED Fall Risk Assessment (Adult) History of falling in the last 3 months, ph including since admission No falls in past 3 months (0 pts) Confusion or Disorientation No (0 pts) Intoxicated or Sedated No (0 pts) Impaired Gait No (0 pts) Mobility Assist Device Used No (0 pt) Altered Elimination No (0 pt) Score/Fall Risk Level 0 - 2 = Low Risk Oriented to surroundings, Maintained a safe environment, Hourly rounding (assess needs \T\ fall precautionary measures) done. Assessment: 13:17 General: Appears in no apparent distress. Behavior is calm, cooperative. Pain: ph Complains of pain in left leg. Neuro: Level of Consciousness is awake, alert, obeys commands, Oriented to person, place, time, situation. Cardiovascular: Capillary refill < 3 seconds in bilateral fingers Patient's skin is warm and dry. Respiratory: Airway is patent Respiratory effort is even, unlabored. Musculoskeletal: Range of motion: intact in all extremities. Vital Signs: 11:24 BP 139 / 69; Pulse 55; Resp 16; Temp 97.4; Pulse Ox 97% on R/A; Weight 79.38 kg; Height iw 5 ft. 4 in. ; Pain 10/10; 14:00 BP 127 / 86; Pulse 58; Resp 18; Temp 97.2; Pulse Ox 98% on R/A; ph 11:24 Body Mass Index 30.04 (79.38 kg, 162.56 cm) iw 11:24 Pain Scale: Adult iw ED Course: 11:06 Patient arrived in ED. rg4 11:07 Jennifer Julien PA-C is PHCP. sb4 11:07 Andrzej Zheng MD is Attending Physician. sb4 11:27 Triage completed. iw 11:28 Arm band placed on. iw 11:50 CT Lumbar Spine Wo Con In Process Unspecified. EDMS 11:52 Isabel Haq, RN is Primary Nurse. ph 12:00 Extremity Venous Uni Ltd US In Process Unspecified. EDMS 13:00 Missed attempt(s): 22 gauge in right antecubital area. Bleeding controlled, band aid ph applied, catheter tip intact. Missed attempt(s): 24 gauge in right hand. Bleeding controlled, band aid applied, catheter tip intact. 13:18 Patient has correct armband on for positive identification. Bed in low position. Call ph light in reach. Side rails up X 1. Door closed. Noise minimized. 13:21 Initial lab(s) drawn, by me, sent to lab. Inserted saline lock: 22 gauge in left iw antecubital area, using aseptic technique. Blood collected. 13:38 BMP Sent. ph 13:38 Magnesium Sent. ph 15:50 No provider procedures requiring assistance completed. IV discontinued, intact, kc6 bleeding controlled, No redness/swelling at site. Pressure dressing applied. Administered Medications: 12:49 Drug: Hydrocodone-Acetaminophen PO (7.5 mg-325 mg) 1 tabs PO once Route: PO; ph 13:30 Follow up: Response: No adverse reaction ph 13:38 Drug: Decadron - Dexamethasone IVP 10 mg IVP once Route: IVP; Site: left antecubital; ph 14:00 Follow up: Response: No adverse reaction ph Medication: 13:18 VIS not applicable for this client. ph Outcome: 15:21 Discharge ordered by MD. sb4 15:51 Discharged to home ambulatory, with family, kc6 15:51 Condition: good 15:51 Discharge instructions given to patient, family, Instructed on discharge instructions, follow up and referral plans. medication usage, Demonstrated understanding of instructions, follow-up care, medications, Prescriptions given X 1, 15:51 Patient left the ED. Signatures: Dispatcher [employer] EDKeiry Roberson RN RN Isabel Haq RN RN ph Garcia, Rubi rg4 Hoda Mendez RN RN kc6 Jennifer Julien, PAGabby PAGabby sb4 Corrections: (The following items were deleted from the chart) 11:27 11:24 Resp 16bpm; Pulse Ox 97% RA; Temp 97.4F; Pain 10/10, Adult; [facility]
[2023-09-04 16:27] VITALS: BP 139/69; TEMP 97.4; O2SAT 97
== END 2023-09-04 15:51 | disposition home or self-care (01) ==
LOC: ER 11:05
DX: M79.605 Pain in left leg (principal); Z86.718 Personal history of other venous thrombosis and embolism; Z79.01 Long term (current) use of anticoagulants; Z88.0 Allergy status to penicillin; Z88.2 Allergy status to sulfonamides
CPT/HCPCS: 80048; 36415; 83735; 85027; 72131; 93971; J1100; 96374; 99284

== ENCOUNTER 2024-08-20 05:31 | Emergency (ER) | payer OTHER ==
[2024-08-20 06:22] LABS: Renal Epithelial <5 /HPF (None Seen); Specific Gravity 1.014 (1.005-1.030); Sqamous Epithelial <5 /HPF (None Seen); Urine Bacteria <20 /HPF (<20); Urine Bilirubin NEGATIVE (Negative); Urine Blood 2+ (Negative); Urine Clarity Extremely Turbid (Clear); Urine Color Light-Yellow (Yellow); Urine Glucose NEGATIVE (Negative); Urine Ketones NEGATIVE (Negative); Urine Micro Reflex YN NO BILL MICROSCOPIC; Urine Mucus Slight /HPF (None Seen); Urine Nitrite 2+ (Negative); Urine Protein NEGATIVE (Negative); Urine Urobilinogen Normal (Normal); Urine WBC 20-50 /HPF (<5); Urine WBC Clump Rare /HPF (None Seen); Urine pH 5.5 (5.0-7.0)
[2024-08-20 06:40] LABS: Absolute Lymphocytes (CBC) 0.4 K/uL (0.7-4.9); Absolute Neutrophil 9.1 K/uL (1.8-8.0); Basophils % 0.2 % (0-1.3); Eosinophils % 0.4 % (0-4.4); Hemoglobin 11.3 g/dL (12.0-15.0); Lymphocytes % 4.3 % (15.3-44.8); MCH 26.7 pg (27.0-35.0); MCHC 33.2 g/dL (32.0-36.0); MCV 80.5 fL (80-100); MPV 9.3 fL (7.6-11.3); Monocytes % 0.4 % (3.3-12.3); Neutrophils % 94.7 % (41.7-73.7); PT Prothrombin Time 17.6 SECONDS (10-13.0); Platelets 133 thou/uL (152-406); Protime INR 1.58; RBC Red Blood Cell Count 4.22 M/uL (3.86-4.86); Red Cell Distribution Width 16.5 % (12.1-15.2)
[2024-08-20 06:51] LABS: Influenza A Ag Negative; Influenza B Ag Negative; SARS-CoV-2 Antigen Rapid Res Negative (Negative)
[2024-08-20 06:58] LABS: Albumin 3.2 g/dL (3.4-5.0); Albumin/Globulin Ratio 0.9 (1.1-1.8); Anion Gap 8.9 mEq/L (5.0-15.0); Bilirubin Direct 0.2 mg/dL (0-0.2); Bilirubin Indirect, Calculated 0.4 mg/dL (0.2-0.8); Bilirubin Total 0.6 mg/dL (0.2-1.0); Globulin 3.4 g/dL (2.3-3.5); Magnesium 1.4 mg/dL (1.6-2.4); Potassium 3.9 mEq/L (3.5-5.1); Protein, Total 6.6 g/dL (6.4-8.2); Thyroid Stimulating Hormone 2.09 uIU/mL (0.358-3.740)
--- NOTE | 2024-08-20 07:27 | ER ---
Nurse's Notes [facility] Name: Sravanthi Mendoza Age: 79 yrs Sex: Female : 1945 Arrival Date: 08/20/2024 Time: 05:31 Bed 6 Private MD: Diagnosis: UTI/ Urinary tract infection, site not specified;Acute cystitis , chills, Chronic renal insufficiency Presentation: 08/20 05:38 Chief complaint: Patient states: I WOKE UP NOT FEELING WELL, BURPING A LOT, BILATERAL ha1 ARM PAIN, SHORTNESS OF BREATH ,AND BODY CHILLS. 05:38 Coronavirus screen: Client denies travel out of the [place] in the last 14 days. Ebola ha1 Screen: No symptoms or risks identified at this time. Initial Sepsis Screen: Does the patient meet any 2 criteria? No. Patient's initial sepsis screen is negative. Does the patient have a suspected source of infection? No. Patient's initial sepsis screen is negative. Risk Assessment: Do you want to hurt yourself or someone else? Patient reports no desire to harm self or others. Onset of symptoms was August 20, 2024. 05:38 Method Of Arrival: Ambulatory ha1 05:38 Acuity: AIDEE 3 ha1 Triage Assessment: 06:40 Headache History: Denies prior headaches. General: Appears in no apparent distress. kd3 Pain: Pain currently is 5 out of 10 on a pain scale. Pain began gradually, Also complains of no other associated symptoms. Historical: - Allergies: 05:38 PENICILLINS; ha1 05:38 Sulfa (Sulfonamide Antibiotics); ha1 - Home Meds: 05:38 omeprazole 20 mg Oral cpDR 1 cap once daily [Active]; metoprolol succinate 50 mg Oral ha1 tablet 1 tab [Active]; Xarelto 10 mg Oral tablet [Active]; - PMHx: 05:38 Deep vein thrombosis; GERD; High Cholesterol; Hypertension; left leg DVT; PE; vit d ha1 deficiency; - PSHx: 05:38 Appendectomy; Cholecystectomy; hysterectomy; ha1 - Immunization history:: Adult Immunizations up to date. - Infectious Disease History:: Denies. - Social history:: Smoking status: unknown. - Family history:: not pertinent. Screenin:39 [facility] ED Fall Risk Assessment (Adult) History of falling in the last 3 months, kd3 including since admission No falls in past 3 months (0 pts) Confusion or Disorientation No (0 pts) Intoxicated or Sedated No (0 pts) Impaired Gait No (0 pts) Mobility Assist Device Used No (0 pt) Altered Elimination No (0 pt) Score/Fall Risk Level 0 - 2 = Low Risk Oriented to surroundings. Abuse screen: Denies threats or abuse. Denies injuries from another. Nutritional screening: No deficits noted. Tuberculosis screening: No symptoms or risk factors identified. Assessment: 06:39 General: Appears in no apparent distress. Behavior is calm, cooperative. Pain: kd3 Complains of pain in right arm and left arm. Neuro: Level of Consciousness is awake, alert, obeys commands, Oriented to person, place, time, situation. Cardiovascular: Capillary refill < 3 seconds Patient's skin is warm and dry. Respiratory: Airway is patent Trachea midline Respiratory effort is even, unlabored, Respiratory pattern is regular, symmetrical. 07:14 Reassessment: Patient and/or family updated on plan of care and expected duration. Pain ap3 level reassessed. Patient is alert, oriented x 3, equal unlabored respirations, skin warm/dry/pink. General: Appears in no apparent distress. Behavior is calm, cooperative, appropriate for age. Neuro: Level of Consciousness is awake, alert, obeys commands, Oriented to person, place, time, situation, Appropriate for age. Cardiovascular: Patient's skin is warm and dry. Respiratory: Airway is patent Respiratory effort is even, unlabored, Respiratory pattern is regular, symmetrical. Vital Signs: 05:38 BP 144 / 64; Pulse 67; Resp 17 S; Temp 98.4(O); Pulse Ox 100% on R/A; Weight 83.46 kg; ha1 Height 5 ft. 7 in. ; 06:41 BP 132 / 50; Pulse 78; Resp 16; Pulse Ox 100% on R/A; kd3 07:52 BP 141 / 51; Pulse 76; Resp 18; Pulse Ox 100% ; ap3 05:38 Body Mass Index 28.82 (83.46 kg, 170.18 cm) ha1 [place] Coma Score: 20:00 Eye Response: spontaneous(4). Motor Response: obeys commands(6). Verbal Response: sp4 oriented(5). Total: 15. 20:03 Eye Response: spontaneous(4). Motor Response: obeys commands(6). Verbal Response: sp4 oriented(5). Total: 15. ED Course: 05:36 Patient arrived in ED. jj6 05:39 José Miguel Merrill MD is Attending Physician. sp4 05:59 Triage completed. ha1 06:16 Jadyn Millan, RN is Primary Nurse. kd3 06:16 Urinalysis W/Microscopic Sent. kd3 06:19 Urinalysis W/Microscopic Sent. kd3 06:32 XRAY Chest (1 view) In Process Unspecified. EDMS 06:40 No provider procedures requiring assistance completed. Inserted saline lock: 22 gauge kd3 in right antecubital area, using aseptic technique. Blood collected. 06:40 Arm band placed on right wrist. kd3 06:40 Patient has correct armband on for positive identification. kd3 06:41 Initial lab(s) drawn, by ED staff, sent to lab. Urine collected: clean catch specimen, kd3 EKG done, by ED staff, reviewed by José Miguel Merrill MD. 07:26 Irwin Tyson MD is Referral Physician. sp4 08:11 IV discontinued, intact, bleeding controlled, No redness/swelling at site. Pressure ap3 dressing applied. 08:11 Provided Education on: discharge instructions. ap3 Administered Medications: 07:43 Drug: Cephalexin PO 500 mg PO once Route: PO; ap3 08:11 Follow up: Response: No adverse reaction ap3 07:43 Drug: Acetaminophen PO 1000 mg PO once Route: PO; ap3 08:11 Follow up: Response: No adverse reaction ap3 Medication: 06:40 VIS not applicable for this client. kd3 Outcome: 07:27 Discharge ordered by . sp4 08:11 Discharged to home ambulatory, with family, ap3 08:11 Condition: good 08:11 Discharge instructions given to patient, Instructed on discharge instructions, follow up and referral plans. medication usage, Demonstrated understanding of instructions, follow-up care, medications, Prescriptions given X 1, 08:11 Patient left the ED. ap3 Signatures: Dispatcher [employer] EDHI Joann Dao RN RN ap3 Shyanne Gifford jj6 Jadyn Millan RN RN kd3 Flakita Reynoso RN RN ha1 José Miguel Merrill, MD JOHNSON sp4
--- NOTE | 2024-08-20 07:27 | EDPHYS ---
Physician Documentation [facility] Name: Sravanthi Mendoza Age: 79 yrs Sex: Female : 1945 Arrival Date: 08/20/2024 Time: 05:31 Bed 6 Private MD: ED Physician José Miguel Merrill HPI: 08/20 05:39 This 79 yrs old Female presents to ER via Unassigned with complaints of Pt sp4 stated she woke up freezing, with soreness and stiffness in her upper extremites. Pt also stated she was having a lot of "burps"., Headache. 20:00 79-year-old female presents with acute onset of chills rigors, feeling unwell overall sp4 and burps associated headache. Patient reported some generalized stiffness as well. Historical: - Allergies: 05:38 PENICILLINS; ha1 05:38 Sulfa (Sulfonamide Antibiotics); ha1 - Home Meds: 05:38 omeprazole 20 mg Oral cpDR 1 cap once daily [Active]; metoprolol succinate 50 mg Oral ha1 tablet 1 tab [Active]; Xarelto 10 mg Oral tablet [Active]; - PMHx: 05:38 Deep vein thrombosis; GERD; High Cholesterol; Hypertension; left leg DVT; PE; vit d ha1 deficiency; - PSHx: 05:38 Appendectomy; Cholecystectomy; hysterectomy; ha1 - Immunization history:: Adult Immunizations up to date. - Infectious Disease History:: Denies. - Social history:: Smoking status: unknown. - Family history:: not pertinent. ROS: 20:00 Constitutional: Negative for fever, positive for chills, positive for rigors, sp4 positive for stiffness, positive for headache, positive for feeling unwell overall 20:00 All other systems are negative, Exam: 20:00 Constitutional: This is a well developed, well nourished patient who is awake, alert, sp4 and in no acute distress. Head/Face: Normocephalic, atraumatic. Eyes: Pupils equal round and reactive to light, extra-ocular motions intact. Lids and lashes normal. Conjunctiva and sclera are not injected. Cornea within normal limits. Periorbital areas with no swelling, redness, or edema. ENT: Nares patent. No nasal discharge, no septal abnormalities noted. Tympanic membranes are normal and external auditory canals are clear. Oropharynx with no redness, swelling, or masses, exudates, or evidence of obstruction, uvula midline. Mucous membranes moist. Neck: Trachea midline, no thyromegaly or masses palpated, and no cervical lymphadenopathy. Supple, full range of motion without nuchal rigidity, or vertebral point tenderness. Chest/axilla: Normal chest wall appearance and motion. Nontender with no deformity. No lesions are appreciated. Cardiovascular: Regular rate and rhythm with a normal S1 and S2. No gallops, murmurs, or rubs. Normal PMI, no JVD. No pulse deficits. Respiratory: Lungs have equal breath sounds bilaterally, clear to auscultation and percussion. No rales, rhonchi or wheezes noted. No increased work of breathing, no retractions or nasal flaring. Abdomen/GI: Soft, with normal bowel sounds. No distension or tympany. No guarding or rebound. No evidence of tenderness throughout. Back: No spinal tenderness. No costovertebral tenderness. Skin: Warm, dry with normal turgor. Normal color with no rashes, no lesions, and no evidence of cellulitis. MS/ Extremity: Pulses equal, no cyanosis. Neurovascular intact. Full, normal range of motion. Neuro: Awake and alert, GCS 15, oriented to person, place, time, and situation. Cranial nerves II-XII grossly intact. Motor strength 5/5 in all extremities. Sensory grossly intact. Psych: Awake, alert, with orientation to person, place and time. Behavior, mood, and affect are within normal limits 20:00 ECG was reviewed by the Attending Physician. EKG 0 617 normal sinus rhythm, normal EKG Vital Signs: 05:38 BP 144 / 64; Pulse 67; Resp 17 S; Temp 98.4(O); Pulse Ox 100% on R/A; Weight 83.46 kg; ha1 Height 5 ft. 7 in. ; 06:41 BP 132 / 50; Pulse 78; Resp 16; Pulse Ox 100% on R/A; kd3 07:52 BP 141 / 51; Pulse 76; Resp 18; Pulse Ox 100% ; ap3 05:38 Body Mass Index 28.82 (83.46 kg, 170.18 cm) ha1 [place] Coma Score: 20:00 Eye Response: spontaneous(4). Motor Response: obeys commands(6). Verbal Response: sp4 oriented(5). Total: 15. 20:03 Eye Response: spontaneous(4). Motor Response: obeys commands(6). Verbal Response: sp4 oriented(5). Total: 15. MDM: 07:27 Medical Screening Exam initiated sp4 20:03 Differential diagnosis: cluster headache, hyponatremia, migraine, tension headache, sp4 uremia. Data reviewed: vital signs, nurses notes, lab test result(s), EKG, radiologic studies, plain films. Consideration of Admission/Observation Escalation of care including admission/observation considered. ED course: Patient found to have moderate UTI which may explain patient's symptoms . Stable to discharge home. Stable for discharge advised follow-up with primary care physician next 2 weeks . 08/20 05:48 Order name: Basic Metabolic Panel; Complete Time: 07:18 sp4 08/20 05:48 Order name: CBC with Diff; Complete Time: 07:18 sp4 08/20 05:48 Order name: LFT's; Complete Time: 07:18 sp4 08/20 05:48 Order name: Magnesium; Complete Time: 07:18 sp4 08/20 05:48 Order name: NT PRO-BNP; Complete Time: 07:18 sp4 08/20 05:48 Order name: PT-INR; Complete Time: 07:18 sp4 08/20 05:48 Order name: Troponin HS; Complete Time: 07:18 sp4 08/20 05:48 Order name: Lipase; Complete Time: 07:18 sp4 08/20 05:48 Order name: COVID-19 Ag + Flu A+B Ag; Complete Time: 07:18 sp4 08/20 05:48 Order name: Urinalysis W/Microscopic; Complete Time: 07:18 sp4 08/20 05:48 Order name: TSH; Complete Time: 07:18 sp4 08/20 05:48 Order name: T4 Free; Complete Time: 07:18 sp4 08/20 05:48 Order name: XRAY Chest (1 view); Complete Time: 20:02 sp4 08/20 05:48 Order name: Cardiac monitoring; Complete Time: 06:19 sp4 08/20 05:48 Order name: EKG - Nurse/Tech; Complete Time: 06:19 sp4 08/20 05:48 Order name: IV Saline Lock; Complete Time: 06:39 sp4 08/20 05:48 Order name: Labs collected and sent; Complete Time: 06:39 sp4 08/20 05:48 Order name: O2 Per Protocol; Complete Time: 06:19 sp4 08/20 05:48 Order name: O2 Sat Monitoring; Complete Time: 06:19 sp4 EC:17 Rate is 71 beats/min. Rhythm is regular, Normal Sinus Rhythm. QRS [place] is Normal. [place] sp4 interval is normal. QRS interval is normal. QT interval is normal. No Q waves. T waves are Normal. No ST changes noted. Clinical impression: Normal ECG. Interpreted by me. Reviewed by me. Administered Medications: 07:43 Drug: Cephalexin PO 500 mg PO once Route: PO; ap3 08:11 Follow up: Response: No adverse reaction ap3 07:43 Drug: Acetaminophen PO 1000 mg PO once Route: PO; ap3 08:11 Follow up: Response: No adverse reaction ap3 Disposition Summary: 08/20/24 07:27 Discharge Ordered Notes: Location: Home sp4 Problem: new sp4 Symptoms: have improved sp4 Condition: Stable sp4 Diagnosis - UTI/ Urinary tract infection, site not specified sp4 - Acute cystitis , chills, Chronic renal insufficiency sp4 Followup: sp4 - With: Irwin Tyson MD - When: 7 - 10 days - Reason: Recheck today's complaints Discharge Instructions: - Discharge Summary Sheet sp4 - Urinary Tract Infection, Adult, [id number] sp4 Forms: - Patient Portal Instructions sp4 Prescriptions: - Cephalexin 500 mg Oral Capsule - take 1 capsule ORAL route every 12 hours for 10 days; 20 capsule; Refills: 0, sp4 Product Selection Permitted Signatures: Dispatcher [employer] Joann Boyer RN RN ap3 Flakita Reynoso RN RN ha1 José Miguel Merrill MD MD sp4 Corrections: (The following items were deleted from the chart) 05:48 05:48 BASIC METABOLIC PANEL+C.LAB.BRZ ordered. EDMS EDMS 05:48 05:48 CBC+H.LAB.BRZ ordered. EDMS EDMS 05:48 05:48 HEPATIC FUNCTION+C.LAB.BRZ ordered. EDMS EDMS 05:48 05:48 MAGNESIUM+C.LAB.BRZ ordered. EDMS EDMS 05:48 05:48 PROBNP+C.LAB.BRZ ordered. EDMS EDMS 05:48 05:48 PROTIME (+INR)+COAG.LAB.BRZ ordered. EDMS EDMS 05:48 05:48 Troponin High Sensitivity+C.LAB.BRZ ordered. EDMS EDMS 05:49 05:49 Chest Single View+RAD.RAD.BRZ ordered. EDMS EDMS 05:49 05:49 LIPASE+C.LAB.BRZ ordered. EDMS EDMS 05:49 05:49 COVID-19 Ag + Flu A+B Ag+I.LAB.BRZ ordered. EDMS EDMS
--- NOTE | 2024-08-20 07:38 | RAD REPORT ---
Procedure: Chest Single View HISTORY: Congestion COMPARISON: 2023 FINDINGS: The lungs appear clear of acute infiltrate. No significant pleural effusion noted. The heart is mildly enlarged. IMPRESSION: No acute abnormality is displayed.
[2024-08-20] MEDS ORDERED: ACETAMINOPHEN 500 MG TAB ONE (07:39)
[2024-08-20] MEDS ORDERED: CEPHALEXIN 250 MG CAP ONE (07:39)
[2024-08-20 08:21] VITALS: TEMP 98.4; O2SAT 100
[2024-08-20 08:33] VITALS: BP 141/51
== END 2024-08-20 08:11 | disposition home or self-care (01) ==
LOC: ER 05:31
DX: N39.0 Urinary tract infection, site not specified (principal); R68.83 Chills (without fever); I12.9 Hypertensive chronic kidney disease with stage 1 through stage 4 chronic kidney disease, or unspecified chronic kidney disease; N18.9 Chronic kidney disease, unspecified; Z11.52 Encounter for screening for COVID-19
CPT/HCPCS: 36415; 71045; 80048; 80076; 81001; 83690; 83735; 83880; 84439; 84443; 84484; 85025; 85610; 87428; 93005